=== PATIENT | female | born 1940 | race Caucasian/White ===

== ENCOUNTER 2017-03-02 11:27 | Inpatient (IN) | payer MEDICARE ==
[2017-03-02] MEDS ORDERED: NORMAL SALINE 500 ML IV ONE (12:04)
[2017-03-02] MEDS ORDERED: NORMAL SALINE 1000 ML 1,000 ML IV ONE (12:04)
[2017-03-02 12:18] LABS: HEMATOCRIT 28.7 % (36.0-47.0); HGB HCT DIFFERENCE -1.7; MEAN CORPUSCULAR HEMOGLOBIN 27.3 pg (27.0-33.4); MEAN CORPUSCULAR HGB CONC 31.3 g/dL (32.0-36.0); MEAN CORPUSCULAR VOLUME 87 fl (80-97); RED BLOOD COUNT 3.28 10^6/uL (3.72-5.28); RED CELL DISTRIBUTION WIDTH 15.1 % (11.5-14.0); WHITE BLOOD COUNT 22.2 10^3/uL (4.0-10.5)
[2017-03-02 12:22] LABS: ANION GAP 14 (5-19); BLOOD UREA NITROGEN 41 mg/dL (7-20); CALCIUM 10.1 mg/dL (8.4-10.2); CARBON DIOXIDE 25 mmol/L (22-30); CHLORIDE 95 mmol/L (98-107); GLUCOSE 157 mg/dL (75-110); MAGNESIUM 1.5 mg/dL (1.6-2.3); PHOSPHORUS 3.8 mg/dL (2.5-4.5); POTASSIUM 4.8 mmol/L (3.6-5.0); SODIUM 133.9 mmol/L (137-145)
[2017-03-02 12:23] LABS: CREATINE KINASE < 20 U/L (30-135)
[2017-03-02 12:37] LABS: PROTHROMBIN TIME 15.1 SEC (11.4-15.4)
[2017-03-02 12:38] LABS: PARTIAL THROMBOPLASTIN TIME 39.4 SEC (23.5-35.8)
[2017-03-02 12:50] LABS: BAND NEUTROPHILS % (MANUAL) 1 % (3-5); BASOPHILS % (MANUAL) 2 % (0-2); EOSINOPHILS % (MANUAL) 3 % (0-6); LYMPHOCYTES % (MANUAL) 3 % (13-45); TOTAL CELLS COUNTED 100
[2017-03-02 12:51] LABS: ANISOCYTOSIS 1+; POLYCHROMASIA 1+; TOXIC VACUOLATION PRESENT
[2017-03-02 13:08] LABS: ALANINE AMINOTRANSFERASE 21 U/L (9-52); ALBUMIN 3.1 g/dL (3.5-5.0); ALKALINE PHOSPHATASE 91 U/L (38-126); ASPARTATE AMINO TRANSFERASE 20 U/L (14-36); BILIRUBIN,DIRECT 0.3 mg/dL (0.0-0.4); BILIRUBIN,TOTAL 0.5 mg/dL (0.2-1.3); TOTAL PROTEIN 6.6 g/dL (6.3-8.2)
[2017-03-02] MEDS ORDERED: LEVOFLOXACIN 750 MG/D5W RTU 150 ML IV ONE (13:39)
[2017-03-02] MEDS ORDERED: MAGNESIUM SULFATE/D5W 100 ML IV ONE (13:40)
[2017-03-02 13:49] LABS: APPEARANCE,URINE CLOUDY; BILIRUBIN,URINE NEGATIVE (NEGATIVE); GLUCOSE, URINE NEGATIVE (NEGATIVE); KETONES,URINE NEGATIVE (NEGATIVE); LEUKOCYTE ESTERASE,URINE LARGE (NEGATIVE); NITRITE,URINE NEGATIVE (NEGATIVE); PROTEIN,URINE 100 mg/dL (NEGATIVE); UROBILINOGEN,URINE NEGATIVE mg/dL (<2.0)
--- NOTE | 2017-03-02 16:00 | ER Document Report ---
ED General - General Chief Complaint: General Weakness Stated Complaint: WEAKNESS TRAVEL OUTSIDE OF THE [place] IN LAST 30 DAYS: No - HPI Patient complains to provider of: generalized weakness fall Notes: Page coming in for general has weakness after fall. Patient states she has fallen multiple times in the last week today felt she was in the tub mechanical fall states he slipped falling down injuring her right shoulder. Patient states this is been ongoing for a few weeks. Family states patient has not been taking care of herself states he refuses to drink any water messaging soda. Patient denies any fevers chills states she's had a cough for the last 3 months. Nonproductive. - Related Data Allergies/Adverse Reactions: SHAUN Inhibitors [Shaun Inhibitors] Allergy (Verified 08/26/15 08:54) ascorbate calcium [From Vitamin C] Allergy (Verified 08/26/15 08:54) Swelling of hands and/or feet ascorbate sodium [From Vitamin C] Allergy (Verified 08/26/15 08:54) Swelling of hands and/or feet ascorbic acid [From Vitamin C] Allergy (Verified 08/26/15 08:54) Swelling of hands and/or feet buffers [From Vitamin C] Allergy (Verified 08/26/15 08:54) Swelling of hands and/or feet codeine [Codeine] Allergy (Verified 08/26/15 08:54) Hives multivitamin with minerals [From Vitamin C] Allergy (Verified 08/26/15 08:54) Swelling of hands and/or feet oxycodone [Oxycodone] Allergy (Verified 08/26/15 08:54) Hives Penicillins Allergy (Verified 08/26/15 08:54) Hives Tetanus Vaccines and Toxoid [Tetanus] Allergy (Verified 08/26/15 08:54) itching reddness Home Medications: Current Home Medications Alendronate Sodium [Fosamax 70 mg Tablet] 70 mg PO WE 03/02/17 [History] Amlodipine Besylate [Norvasc 10 mg Tablet] 10 mg PO QHS 03/02/17 [History] Aspirin [Ecotrin 81 mg EC Tablet] 81 mg PO QHS 03/02/17 [History] Atenolol [Tenormin 50 mg Tablet] 50 mg PO BID@0800,1200 03/02/17 [History] Atorvastatin Calcium [Lipitor 10 mg Tablet] 10 mg PO QHS 03/02/17 [History] Calcium Carbonate/Vitamin D3 [Calcium 600-Vit D3 800 Tablet] 2 tab PO DAILY [History] Cholecalciferol (Vitamin D3) [Vitamin D3 5000 unit Capsule] 10,000 units PO DAILY 03/02/17 [History] Fexofenadine HCl [Shwetha] 180 mg PO QHS 03/02/17 [History] Glucosa [place] 2Kcl/Chondroitin Pineda [Glucosamine Chondroitin Caplet] 1 tab PO BID [History] Hydrochlorothiazide 25 mg PO QAM 03/02/17 [History] Levothyroxine Sodium [Synthroid 0.025 mg Tablet] 25 mcg PO ACLUNCH 03/02/17 [ History] Metformin HCl [Glucophage] 500 mg PO ACLUNCH 03/02/17 [History] Metformin HCl [Glucophage] 850 mg PO BIDACBS 03/02/17 [History] Montelukast Sodium [Singulair 10 mg Tablet] 10 mg PO QHS 03/02/17 [History] Pregabalin [Lyrica 50 mg Capsule] 50 mg PO Q8 03/02/17 [History] Tramadol HCl [Ultram 50 mg Tablet] 100 mg PO Q8 03/02/17 [History] Past Medical History - Social History Smoking Status: Unknown if Ever Smoked Chew tobacco use (# tins/day): No Frequency of alcohol use: None Drug Abuse: None Family History: Reviewed & Not Pertinent - Past Medical History Cardiac Medical History: Reports: Hx Hypertension Denies: Hx Heart Attack Pulmonary Medical History: Reports: Hx Asthma - controlled Neurological Medical History: Denies: Hx Cerebrovascular Accident, Hx Seizures Endocrine Medical History: Reports: Hx Diabetes Mellitus Type 2 GI Medical History: Denies: Hx Hepatitis, Hx Hiatal Hernia, Hx Ulcer Infectious Medical History: Denies: Hx Hepatitis Past Surgical History: Denies: Hx Mastectomy, Hx Open Heart Surgery, Hx Pacemaker - Immunizations Hx Diphtheria, Pertussis, Tetanus Vaccination: No Review of Systems - Review of Systems Constitutional: Weakness, Other - Fall EENT: No symptoms reported Cardiovascular: No symptoms reported Respiratory: No symptoms reported Gastrointestinal: No symptoms reported Genitourinary: No symptoms reported Female Genitourinary: No symptoms reported Musculoskeletal: No symptoms reported Skin: No symptoms reported Hematologic/Lymphatic: No symptoms reported Neurological/Psychological: No symptoms reported Physical Exam - Vital signs Vitals: Resp Pulse Ox 15 95 03/02/17 11:39 03/02/17 11:39 Interpretation: Normal - General General appearance: Appears well, Alert - HEENT Head: Normocephalic, Atraumatic Eyes: Normal Pupils: PERRL - Respiratory Respiratory status: No respiratory distress Chest status: Nontender Breath sounds: Normal Chest palpation: Normal - Cardiovascular Rhythm: Regular Heart sounds: Normal auscultation Murmur: No - Abdominal Inspection: Normal Distension: No distension Bowel sounds: Normal Tenderness: Nontender Organomegaly: No organomegaly - Back Back: Normal, Nontender - Extremities General upper extremity: Nontender, Normal color, Normal ROM, Normal temperature. No: Normal inspection - Patient has tenderness to palpation of the right shoulder. No other tenderness seen. No deformities General lower extremity: Normal inspection, Nontender, Normal color, Normal ROM , Normal temperature, Normal weight bearing. No: Tim's sign - Neurological Neuro grossly intact: Yes Cognition: Normal Orientation: AAOx4 Thai Coma Scale Eye Opening: Spontaneous [place] Coma Scale Verbal: Oriented Thai Coma Scale Motor: Obeys Commands Thai Coma Scale Total: 15 Speech: Normal Motor strength normal: LUE, RUE, LLE, RLE Sensory: Normal - Psychological Associated symptoms: Normal affect, Normal mood - Skin Skin Temperature: Warm Skin Moisture: Dry Skin Color: Normal Course - Re-evaluation Re-evalutation: 03/02/17 18:36 Patient's lab work shows leukocytosis with a bandemia patient's condition profundus showed acute renal failure and hypomagnesemia. Urinalysis that showed UTI. Chest x-ray shows a chest mass with possible pneumonia. Patient was started on antibiotics was given IV fluids patient's orthostatics were positive. Cardiac enzymes and EKG were negative. Patient will be referred to the hospital for further evaluation. - Vital Signs Vital signs: Temp Pulse Resp BP Pulse Ox 97.8 F 74 15 111/56 L 95 03/02/17 15:00 03/02/17 15:00 03/02/17 18:00 03/02/17 15:01 03/02/17 18:00 - Laboratory Result Diagrams: 03/02/17 11:50 03/02/17 11:50 Laboratory results interpreted by me: 04/19/17 04/19/17 04/19/17 11:50 11:50 11:50 WBC 22.2 H RBC 3.28 L Hgb 9.0 L Hct 28.7 L MCHC 31.3 L RDW 15.1 H Plt Count 664 H Seg Neuts % (Manual) 83 H Band Neutrophils % 1 L Lymphocytes % (Manual) 3 L Metamyelocytes % 1 H Abs Neuts (Manual) 18.9 H Abs Monocytes (Manual) 1.6 H Absolute Eos (Manual) 0.7 H Abs Basophils (Manual) 0.4 H APTT 39.4 H Sodium 133.9 L Chloride 95 L BUN 41 H Creatinine 1.90 H Est GFR ( Amer) 31 L Est GFR (Non-Af Amer) 26 L Glucose 157 H Magnesium 1.5 L Creatine Kinase < 20 L Albumin Urine Protein Urine Blood Ur Leukocyte Esterase 03/02/17 03/02/17 11:50 13:09 WBC RBC Hgb Hct MCHC RDW Plt Count Seg Neuts % (Manual) Band Neutrophils % Lymphocytes % (Manual) Metamyelocytes % Abs Neuts (Manual) Abs Monocytes (Manual) Absolute Eos (Manual) Abs Basophils (Manual) APTT Sodium Chloride BUN Creatinine Est GFR ( Amer) Est GFR (Non-Af Amer) Glucose Magnesium Creatine Kinase Albumin 3.1 L Urine Protein 100 H Urine Blood LARGE H Ur Leukocyte Esterase LARGE H Discharge - Discharge Clinical Impression: Generalized weakness, Orthostatic hypotension, Lung mass, Hypomagnesemia Pneumonia Qualifiers: Pneumonia type: due to unspecified organism Laterality: unspecified laterality Lung location: unspecified part of lung Qualified Code(s): J18.9 - Pneumonia, unspecified organism Acute renal failure Qualifiers: Acute renal failure type: unspecified Qualified Code(s): N17.9 - Acute kidney failure, unspecified Condition: Good Disposition: ADMITTED INPATIENT Admitting Provider: Hospitalist - [facility] Admitted: Telemetry Referrals: XIMENA ALONZO MD [Primary Care Provider] - Follow up as needed
[2017-03-02] MEDS ORDERED: NORMAL SALINE 1000 ML 1,000 ML IV PRN (17:46)
[2017-03-02] MEDS ORDERED: ONDANSETRON HCL INJ/PF 4 MG/2 ML SDV IV PRN (17:53)
[2017-03-02] MEDS ORDERED: TRAMADOL HCL 50 MG TABLET PO PRN (17:54)
[2017-03-02] MEDS ORDERED: DEXTROSE 40% GEL 15 GM TUBE PO PRN ×2 (17:57)
[2017-03-02] MEDS ORDERED: DEXTROSE 50%-WATER 25 GM/50 ML DISP.SYRIN IV PRN ×2 (17:57)
[2017-03-02] MEDS ORDERED: GLUCAGON,HUMAN RECOMB 1 MG INJ IM PRN (17:57)
[2017-03-02] MEDS ORDERED: INSULIN REG, HUMAN 100 UNIT/ML 3 ML VIAL (PYX) SUBCUT PRN (17:57)
--- NOTE | 2017-03-02 18:11 | PDOC H&P ---
History of Present Illness Admission Date/PCP: XIMENA ALONZO MD Patient complains of: Generalized weakness and fall History of Present Illness: MARILY DENNIS is a 76 year old female, with history of hypothyroidism, recently diagnosed rheumatoid arthritis, type II diabetes mellitus, hypertension , presents to the hospital because of fall that happened earlier today while preparing to go to the doctor's clinic in the bathroom. Patient did not sustain any injury, family was able to get her up and brought her back to bed where she fell again. She was brought to the hospital for evaluation, she was found to have elevated WBC, anemia, elevated creatinine, and multiple lung masses. Patient was then referred for admission. Patient has lost about 60 pounds for the past 3 years. For the past 3 months appetite has been decreasing , and the patient having generalized weakness that became progressive. For the past 2 weeks she started to develop urinary frequency and urgency. Denies any chills or fever at all. No diarrhea. She has a chronic cough for the past 3 months, dry without any hemoptysis. There is no pleurisy. No sinus congestion but has sore throat for about a week. She was recently diagnosed several weeks ago by her physician w/ rheumatoid arthritis. Past Medical History Cardiac Medical History: Reports: Hyperlipidema, Hypertension Denies: Myocardial Infarction Pulmonary Medical History: Reports: Asthma - controlled Neurological Medical History: Denies: Seizures Endocrine Medical History: Reports: Diabetes Mellitus Type 2, Hypothyroidism Malignancy Medical History: Reports: Other - Anemia of chronic disease GI Medical History: Denies: Hepatitis, Hiatal Hernia Musculoskeltal Medical History: Reports: Fibromyalgia, Other - Rheumatoid arthritis Hematology: Reports: Anemia Denies: Sickle Cell Disease Past Surgical History Past Surgical History: Reports: Orthopedic Surgery - Right shoulder surgery for fracture, Other - Cataract surgery Denies: Amputation, Mastectomy, Pacemaker Social History Information Source: Patient Smoking Status: Never Smoker Frequency of Alcohol Use: None Hx Recreational Drug Use: No Drugs: None Family History Family History: Reviewed & Not Pertinent, CAD, DM, Malignancy - Brain cancer, uterine cancer, Other - Brain aneurysm, liver cirrhosis Parental Family History Reviewed: Yes Children Family History Reviewed: Yes Sibling(s) Family History Reviewed.: Yes Medication/Allergy Home Medications: Alendronate Sodium [Fosamax 70 mg Tablet] 70 mg PO WE 03/02/17 Amlodipine Besylate [Norvasc 10 mg Tablet] 10 mg PO QHS 03/02/17 Aspirin [Ecotrin 81 mg EC Tablet] 81 mg PO QHS 03/02/17 Atenolol [Tenormin 50 mg Tablet] 50 mg PO BID@0800,1200 03/02/17 Atorvastatin Calcium [Lipitor 10 mg Tablet] 10 mg PO QHS 03/02/17 Calcium Carbonate/Vitamin D3 [Calcium 600-Vit D3 800 Tablet] 2 tab PO DAILY Cholecalciferol (Vitamin D3) [Vitamin D3 5000 unit Capsule] 10,000 units PO DAILY 03/02/17 Fexofenadine HCl [Shwetha] 180 mg PO QHS 03/02/17 Glucosa Pineda 2Kcl/Chondroitin Pineda [Glucosamine Chondroitin Caplet] 1 tab PO BID Hydrochlorothiazide 25 mg PO QAM 03/02/17 Levothyroxine Sodium [Synthroid 0.025 mg Tablet] 25 mcg PO ACLUNCH 03/02/17 Metformin HCl [Glucophage] 500 mg PO ACLUNCH 03/02/17 Metformin HCl [Glucophage] 850 mg PO BIDACBS 03/02/17 Montelukast Sodium [Singulair 10 mg Tablet] 10 mg PO QHS 03/02/17 Pregabalin [Lyrica 50 mg Capsule] 50 mg PO Q8 03/02/17 Tramadol HCl [Ultram 50 mg Tablet] 100 mg PO Q8 03/02/17 Allergies/Adverse Reactions: SHAUN Inhibitors [Shaun Inhibitors] Allergy (Verified 08/26/15 08:54) ascorbate calcium [From Vitamin C] Allergy (Verified 08/26/15 08:54) Swelling of hands and/or feet ascorbate sodium [From Vitamin C] Allergy (Verified 08/26/15 08:54) Swelling of hands and/or feet ascorbic acid [From Vitamin C] Allergy (Verified 08/26/15 08:54) Swelling of hands and/or feet buffers [From Vitamin C] Allergy (Verified 08/26/15 08:54) Swelling of hands and/or feet codeine [Codeine] Allergy (Verified 08/26/15 08:54) Hives multivitamin with minerals [From Vitamin C] Allergy (Verified 08/26/15 08:54) Swelling of hands and/or feet oxycodone [Oxycodone] Allergy (Verified 08/26/15 08:54) Hives Penicillins Allergy (Verified 08/26/15 08:54) Hives Tetanus Vaccines and Toxoid [Tetanus] Allergy (Verified 08/26/15 08:54) itching reddness Review of Systems Constitutional: PRESENT: headache(s) - Occasional, weakness - Generalized, weight loss. ABSENT: chills, fever(s), night sweats, weight gain Eyes: ABSENT: visual disturbances Ears: ABSENT: hearing changes Nose, Mouth, and Throat: PRESENT: sore throat - For about a week. ABSENT: mouth pain Cardiovascular: PRESENT: dyspnea on exertion. ABSENT: chest pain, edema, orthropnea, palpitations Respiratory: PRESENT: cough. ABSENT: hemoptysis, sputum Gastrointestinal: ABSENT: abdominal pain, constipation, diarrhea, hematemesis, hematochezia, melena, nausea, vomiting Genitourinary: PRESENT: difficulty urinating, dysuria. ABSENT: hematuria, nocturia Musculoskeletal: ABSENT: joint swelling Integumentary: PRESENT: rash - On the buttocks on the right side.. ABSENT: pruritus, wounds Neurological: PRESENT: dizziness - on standing. ABSENT: abnormal gait, abnormal speech, confusion, focal weakness, syncope Psychiatric: ABSENT: anxiety, depression, homidical ideation, suicidal ideation Endocrine: ABSENT: cold intolerance, heat intolerance, polydipsia, polyuria Hematologic/Lymphatic: ABSENT: easy bleeding, easy bruising Physical Exam Vital Signs: Temp Pulse Resp BP Pulse Ox 97.8 F 74 18 111/56 L 94 03/02/17 15:00 03/02/17 15:00 03/02/17 17:00 03/02/17 15:01 03/02/17 17:00 General appearance: PRESENT: no acute distress, cooperative, obese Head exam: PRESENT: atraumatic, normocephalic Eye exam: PRESENT: conjunctiva pale, EOMI, PERRLA. ABSENT: scleral icterus Ear exam: PRESENT: normal external ear exam. ABSENT: drainage Mouth exam: PRESENT: dry mucosa, neck supple, tongue midline Throat exam: PRESENT: other - No thrush. ABSENT: post pharyngeal erythema, tonsillar erythema Neck exam: ABSENT: carotid bruit, JVD, lymphadenopathy, thyromegaly Respiratory exam: PRESENT: clear to auscultation ponce - Anteriorly, rales - Dry rales posteriorly in the lower lung zuñiga. ABSENT: rhonchi, wheezes Cardiovascular exam: PRESENT: RRR, systolic murmur - On the aortic area. ABSENT : diastolic murmur, rubs Pulses: PRESENT: normal dorsalis pedis pul Vascular exam: PRESENT: normal capillary refill GI/Abdominal exam: PRESENT: normal bowel sounds, soft, other - Patient had a dry nodule on the right buttocks that is healing with some scaling desquamation and scabbing about 0.5 cm. ABSENT: distended, guarding, mass, organolmegaly, rebound, tenderness Rectal exam: PRESENT: deferred Extremities exam: PRESENT: full ROM. ABSENT: calf tenderness, clubbing, pedal edema Neurological exam: PRESENT: alert, awake, oriented to person, oriented to place , oriented to time, oriented to situation, CN II-XII grossly intact Psychiatric exam: PRESENT: appropriate affect, normal mood. ABSENT: homicidal ideation, suicidal ideation Skin exam: PRESENT: dry, intact, warm. ABSENT: cyanosis, rash Results Laboratory Results: 03/02/17 11:50 03/02/17 11:50 03/02/17 03/02/17 03/02/17 11:50 11:50 11:50 WBC 22.2 H RBC 3.28 L Hgb 9.0 L Hct 28.7 L MCV 87 MCH 27.3 MCHC 31.3 L RDW 15.1 H Plt Count 664 H Seg Neutrophils % Not Reportable Lymphocytes % Not Reportable Monocytes % Not Reportable Eosinophils % Not Reportable Basophils % Not Reportable Absolute Neutrophils Not Reportable Absolute Lymphocytes Not Reportable Absolute Monocytes Not Reportable Absolute Eosinophils Not Reportable Absolute Basophils Not Reportable Sodium 133.9 L Potassium 4.8 Chloride 95 L Carbon Dioxide 25 Anion Gap 14 BUN 41 H Creatinine 1.90 H Est GFR ( Amer) 31 L Est GFR (Non-Af Amer) 26 L Glucose 157 H Calcium 10.1 Phosphorus 3.8 Magnesium 1.5 L Total Bilirubin AST ALT Alkaline Phosphatase Total Protein Albumin Lipase Urine Color Urine Appearance Urine pH Ur Specific [place] Urine Protein Urine Glucose (UA) Urine Ketones Urine Blood Urine Nitrite Ur Leukocyte Esterase Urine WBC (Auto) Urine RBC (Auto) Blood Type O POSITIVE Antibody Screen NEGATIVE 03/02/17 03/02/17 11:50 13:09 WBC RBC Hgb Hct MCV MCH MCHC RDW Plt Count Seg Neutrophils % Lymphocytes % Monocytes % Eosinophils % Basophils % Absolute Neutrophils Absolute Lymphocytes Absolute Monocytes Absolute Eosinophils Absolute Basophils Sodium Potassium Chloride Carbon Dioxide Anion Gap BUN Creatinine Est GFR ( Amer) Est GFR (Non-Af Amer) Glucose Calcium Phosphorus Magnesium Total Bilirubin 0.5 AST 20 ALT 21 Alkaline Phosphatase 91 Total Protein 6.6 Albumin 3.1 L Lipase 26.0 Urine Color YELLOW Urine Appearance CLOUDY Urine pH 5.0 Ur Specific [place] 1.010 Urine Protein 100 H Urine Glucose (UA) NEGATIVE Urine Ketones NEGATIVE Urine Blood LARGE H Urine Nitrite NEGATIVE Ur Leukocyte Esterase LARGE H Urine WBC (Auto) 79 Urine RBC (Auto) 157 Blood Type Antibody Screen 03/02/17 03/02/17 11:50 11:50 Creatine Kinase < 20 L Troponin I < 0.012 Impressions: Chest X-Ray 03/02/17 12:06 IMPRESSION: Abnormal density is seen bilaterally worrisome for malignancy although pneumonia is also consideration. Chest CT is recommended for further evaluation. Shoulder X-Ray 03/02/17 12:06 IMPRESSION: 1. Old posttraumatic changes involving the proximal right humerus with severe degenerative changes involving the AC joint and the glenohumeral joint. 2. Abnormal density involving the right hilum extending into the right lung base worrisome for malignancy. Chest CT is recommended. Chest CT 03/02/17 15:46 IMPRESSION: Multiple large mass lesions are seen through the lung zuñiga, hilar and mediastinal regions. Findings concerning for malignancy. Scattered sclerotic changes are seen of multiple ribs. Assessment & Plan - Time Time Spent: 50 to 70 Minutes - Plan Summary Plan Summary: The patient will be admitted to telemetry. We will hydrate the patient with normal saline. We will culture the urine and blood, we will begin intravenous antibiotic to cover for gram negatives sepsis. Patient has multiple lung nodules, may be related to rheumatoid arthritis, we will however consult pulmonary for possible bronchoscopy, consult Dr. Ayala for possible malignancy. We will check a TSH and a free T4. We will monitor creatinine as well as hematocrit. DVT prophylaxis with Lovenox will be placed. Further testing depends on initial evaluation as outlined above.
[2017-03-02 19:30] LABS: FREE T3 2.19 pg/mL (2.77-5.27)
[2017-03-02 19:44] LABS: THYROID STIMULATING HORMONE 1.91 uIU/mL (0.47-4.68)
--- NOTE | 2017-03-02 20:04 | EKG REPORT ---
SEVERITY:- NORMAL ECG - SINUS RHYTHM : Confirmed by: Alexia Delarosa MD 02-Mar-2017 20:04:03
[2017-03-02] MEDS: DOCUSATE SODIUM 100 MG CAPSULE PO SCH (20:22)
[2017-03-02] MEDS ORDERED: ENOXAPARIN SODIUM INJ 30 MG/0.3 ML DISP.SYRIN SUBCUT ONE (20:45)
[2017-03-02] MEDS: ASPIRIN 81 MG TABLET, ENT COATED PO SCH (21:50)
[2017-03-02] MEDS: ACETAMINOPHEN 325 MG TABLET PO PRN (21:50)
[2017-03-02] MEDS: LORATADINE 10 MG TABLET PO SCH (21:50)
[2017-03-02] MEDS: PREGABALIN 50 MG CAPSULE PO SCH (21:50)
[2017-03-02] MEDS: MONTELUKAST SODIUM 10 MG TABLET PO SCH (21:50)
[2017-03-03] MEDS: PREGABALIN 50 MG CAPSULE PO SCH ×3 (05:00→21:21)
[2017-03-03] MEDS: LANSOPRAZOLE 30 MG TAB.RAP.DR PO SCH (05:00)
[2017-03-03 06:28] LABS: ANION GAP 11 (5-19); BLOOD UREA NITROGEN 36 mg/dL (7-20); CALCIUM 9.9 mg/dL (8.4-10.2); CARBON DIOXIDE 26 mmol/L (22-30); CHLORIDE 99 mmol/L (98-107); CREATININE RESULT 1.72 mg/dL (0.52-1.25); GLUCOSE 125 mg/dL (75-110); MAGNESIUM 1.7 mg/dL (1.6-2.3); PHOSPHORUS 4.1 mg/dL (2.5-4.5); SODIUM 135.9 mmol/L (137-145)
[2017-03-03 06:50] LABS: HEMATOCRIT 27.5 % (36.0-47.0); HEMOGLOBIN 8.7 g/dL (12.0-15.5); HGB HCT DIFFERENCE -1.4; MEAN CORPUSCULAR HEMOGLOBIN 27.8 pg (27.0-33.4); MEAN CORPUSCULAR HGB CONC 31.6 g/dL (32.0-36.0); MEAN CORPUSCULAR VOLUME 88 fl (80-97); RED BLOOD COUNT 3.13 10^6/uL (3.72-5.28); RED CELL DISTRIBUTION WIDTH 15.4 % (11.5-14.0); WHITE BLOOD COUNT 19.7 10^3/uL (4.0-10.5)
[2017-03-03 07:06] LABS: BAND NEUTROPHILS % (MANUAL) 1 % (3-5); BASOPHILS % (MANUAL) 0 % (0-2); EOSINOPHILS % (MANUAL) 1 % (0-6); LYMPHOCYTES % (MANUAL) 4 % (13-45); TOTAL CELLS COUNTED 100
[2017-03-03 07:07] LABS: ANISOCYTOSIS 1+; HYPOCHROMASIA SLIGHT; OVALOCYTES SLIGHT; POIKILOCYTOSIS SLIGHT; POLYCHROMASIA SLIGHT
[2017-03-03] MEDS ORDERED: ENOXAPARIN SODIUM INJ 40 MG/0.4 ML DISP.SYRIN SUBCUT SCH (08:00)
[2017-03-03] MEDS ORDERED: ERTAPENEM SODIUM 1 GM in NORMAL SALINE 50 ML IV SCH (10:00)
[2017-03-03] MEDS ORDERED: ERTAPENEM SODIUM INJ 1 GM VIAL IV SCH (10:00)
[2017-03-03] MEDS ORDERED: ERTAPENEM SODIUM 0.5 GM in NORMAL SALINE 50 ML IV SCH (10:00)
--- NOTE | 2017-03-03 10:45 | PDOC PROGRESS REPORT ---
Subjective Progress Note for:: 03/03/17 Subjective:: Still with generalized malaise and fatigue. Denies shortness of breath, PND or orthopnea, chest pain or pleurisy. No nausea or vomiting, no abdominal pain, no diarrhea. Appetite still poor. Physical Exam Vital Signs: Temp Pulse Resp BP Pulse Ox 98.5 F 82 18 120/53 L 100 03/03/17 07:44 03/03/17 07:44 03/03/17 07:44 03/03/17 07:44 03/03/17 07:44 Intake & Output 03/02/17 03/03/17 03/04/17 06:59 06:59 06:59 Intake Total 1175 Output Total 300 Balance 875 Weight 70.7 kg General appearance: PRESENT: no acute distress, cooperative Head exam: PRESENT: normocephalic Eye exam: PRESENT: conjunctiva pale, EOMI Mouth exam: PRESENT: moist, neck supple Neck exam: ABSENT: JVD Respiratory exam: PRESENT: clear to auscultation ponce. ABSENT: rhonchi, wheezes Cardiovascular exam: PRESENT: RRR. ABSENT: gallop GI/Abdominal exam: PRESENT: normal bowel sounds, soft. ABSENT: distended, tenderness Extremities exam: PRESENT: other - Trace lower extremity edema Neurological exam: PRESENT: alert, awake, oriented to situation Skin exam: PRESENT: dry, warm. ABSENT: cyanosis Results Laboratory Results: 03/03/17 04:41 03/03/17 04:41 03/03/17 03/03/17 04:41 04:41 WBC 19.7 H RBC 3.13 L Hgb 8.7 L Hct 27.5 L MCV 88 MCH 27.8 MCHC 31.6 L RDW 15.4 H Plt Count 574 H Seg Neutrophils % Not Reportable Lymphocytes % Not Reportable Monocytes % Not Reportable Eosinophils % Not Reportable Basophils % Not Reportable Absolute Neutrophils Not Reportable Absolute Lymphocytes Not Reportable Absolute Monocytes Not Reportable Absolute Eosinophils Not Reportable Absolute Basophils Not Reportable Sodium 135.9 L Potassium 5.0 Chloride 99 Carbon Dioxide 26 Anion Gap 11 BUN 36 H Creatinine 1.72 H Est GFR ( Amer) 35 L Est GFR (Non-Af Amer) 29 L Glucose 125 H Calcium 9.9 Phosphorus 4.1 Magnesium 1.7 Impressions: Chest X-Ray 04/19/17 12:06 IMPRESSION: Abnormal density is seen bilaterally worrisome for malignancy although pneumonia is also consideration. Chest CT is recommended for further evaluation. Shoulder X-Ray 03/02/17 12:06 IMPRESSION: 1. Old posttraumatic changes involving the proximal right humerus with severe degenerative changes involving the AC joint and the glenohumeral joint. 2. Abnormal density involving the right hilum extending into the right lung base worrisome for malignancy. Chest CT is recommended. Chest CT 03/02/17 15:46 IMPRESSION: Multiple large mass lesions are seen through the lung zuñiga, hilar and mediastinal regions. Findings concerning for malignancy. Scattered sclerotic changes are seen of multiple ribs. Assessment & Plan - Diagnosis (1) Sepsis Qualifiers: Sepsis type: sepsis due to unspecified organism Qualified Code(s): A41.9 - Sepsis, unspecified organism Is this a current diagnosis for this admission?: Yes (2) UTI (urinary tract infection) Qualifiers: Urinary tract infection type: acute cystitis Hematuria presence: without hematuria Qualified Code(s): N30.00 - Acute cystitis without hematuria Is this a current diagnosis for this admission?: Yes (3) Acute renal failure Qualifiers: Acute renal failure type: unspecified Qualified Code(s): N17.9 - Acute kidney failure, unspecified Is this a current diagnosis for this admission?: Yes (4) Hypomagnesemia Is this a current diagnosis for this admission?: Yes (5) Lung mass Is this a current diagnosis for this admission?: Yes (6) Anemia Qualifiers: Anemia type: unspecified type Qualified Code(s): D64.9 - Anemia, unspecified Is this a current diagnosis for this admission?: Yes (7) Hypertension, essential Is this a current diagnosis for this admission?: Yes (8) Hyperlipidemia Qualifiers: Hyperlipidemia type: unspecified Qualified Code(s): E78.5 - Hyperlipidemia, unspecified Is this a current diagnosis for this admission?: Yes (9) Asthma Qualifiers: Asthma complication type: uncomplicated Is this a current diagnosis for this admission?: Yes (10) Diabetes mellitus type 2 in obese Is this a current diagnosis for this admission?: Yes (11) Hypothyroidism (acquired) Is this a current diagnosis for this admission?: Yes (12) Rheumatoid arthritis Qualifiers: Rheumatoid arthritis location: unspecified site Rheumatoid factor presence: unspecified presence Qualified Code(s): M06.9 - Rheumatoid arthritis, unspecified Is this a current diagnosis for this admission?: Yes (13) Fibromyalgia Is this a current diagnosis for this admission?: Yes - Time Time Spent with patient: 25-34 minutes - Plan Summary Plan Summary: Case discussed with pulmonary service. Possible bronchoscopy on Tuesday. Await oncology evaluation. Continue gentle hydration. Monitor creatinine. WBC/HCT trended down probably dilutional. We will monitor and transfuse if needed. Continue antibiotics. Follow cultures. Check free T4.
[2017-03-03] MEDS: DOCUSATE SODIUM 100 MG CAPSULE PO SCH ×2 (11:41→18:29)
[2017-03-03] MEDS: LEVOTHYROXINE SODIUM 0.025 MG TABLET PO SCH (11:41)
[2017-03-03] MEDS: ENOXAPARIN SODIUM INJ 30 MG/0.3 ML DISP.SYRIN SUBCUT SCH (11:42)
[2017-03-03] MEDS: ATENOLOL 50 MG TABLET PO SCH ×2 (11:42→18:28)
[2017-03-03] MEDS: ACETAMINOPHEN 325 MG TABLET PO PRN ×2 (11:46→18:29)
[2017-03-03] MEDS ORDERED: ACETAMINOPHEN 325 MG TABLET PO PRN (19:22)
[2017-03-03] MEDS ORDERED: DIPHENHYDRAMINE HCL 50 MG/ML VIAL IV PRN (19:23)
[2017-03-03] MEDS ORDERED: FERUMOXYTOL (ESRD) 510 MG/NS 100 ML IV ONE ×2 (20:30)
[2017-03-03] MEDS ORDERED: FERUMOXYTOL (NON-ESRD) 510 MG/NS 100 ML IV ONE ×2 (20:30)
[2017-03-03] MEDS: ASPIRIN 81 MG TABLET, ENT COATED PO SCH (21:21)
[2017-03-03] MEDS: LORATADINE 10 MG TABLET PO SCH (21:21)
[2017-03-03] MEDS: ATORVASTATIN CALCIUM 10 MG TABLET PO SCH (21:21)
[2017-03-03] MEDS: MONTELUKAST SODIUM 10 MG TABLET PO SCH (21:21)
--- NOTE | 2017-03-03 23:27 | PDOC CONSULTATION ---
Consultation Consult Date: 03/03/17 Consult reason:: Anemia and lung lesions History of Present Illness Admission Date/PCP: 03/02/17 19:09 XIMENA ALONZO MD History of Present Illness: MARILY DENNIS is a 76 year old female, with history of hypothyroidism, recently diagnosed rheumatoid arthritis, type II diabetes mellitus, hypertension , SINCERE who presented to the hospital because of a fall that happened just prior to admit while preparing to go to the doctor's office. Patient did not sustain any injury, and family was able to get her up but she fell again. She was brought to the hospital for evaluation, and was found to have an elevated WBC, anemia, elevated creatinine, and multiple lung masses. Patient was then referred for admission. She has lost about 60 pounds for the past 3 years. For the past 3 months appetite has been decreasing, and the patient having generalized weakness that has became progressive. She has had an iron deficiency with negative stools and despite recent IV iron she had a rapid decline again. For the past 2 weeks she started to develop urinary frequency but denies any chills or fever at all. No diarrhea or change in bowel habits. She has a chronic cough for the past 3 months, dry without any hemoptysis. There is no pleurisy. No sinus congestion but has sore throat for about a week. She was recently diagnosed a few weeks ago with episcleritis w/ rheumatoid arthritis antibody. She then presented to the ER with pulmonary nodules after an XRay looking for fractures. Past Medical History Cardiac Medical History: Reports: Hyperlipidema, Hypertension Denies: Myocardial Infarction Pulmonary Medical History: Reports: Asthma - controlled Neurological Medical History: Denies: Seizures Endocrine Medical History: Reports: Diabetes Mellitus Type 2, Hypothyroidism Malignancy Medical History: Reports: Other - Anemia of chronic disease GI Medical History: Denies: Hepatitis, Hiatal Hernia Musculoskeltal Medical History: Reports: Fibromyalgia, Other - Rheumatoid arthritis Psychiatric Medical History: Denies: Depression Hematology: Reports: Anemia Denies: Sickle Cell Disease Past Surgical History Past Surgical History: Reports: Orthopedic Surgery - Right shoulder surgery for fracture, Other - Cataract surgery Denies: Amputation, Mastectomy, Pacemaker Social History Smoking Status: Never Smoker Frequency of Alcohol Use: None Hx Recreational Drug Use: No Drugs: None Hx Prescription Drug Abuse: No Family History Family History: Reviewed & Not Pertinent Parental Family History Reviewed: Yes Children Family History Reviewed: Yes Sibling(s) Family History Reviewed.: Yes Medication/Allergy Home Medications: Alendronate Sodium [Fosamax 70 mg Tablet] 70 mg PO WE 03/02/17 Amlodipine Besylate [Norvasc 10 mg Tablet] 10 mg PO QHS 03/02/17 Aspirin [Ecotrin 81 mg EC Tablet] 81 mg PO QHS 03/02/17 Atenolol [Tenormin 50 mg Tablet] 50 mg PO BID@0800,1200 03/02/17 Atorvastatin Calcium [Lipitor 10 mg Tablet] 10 mg PO QHS 03/02/17 Calcium Carbonate/Vitamin D3 [Calcium 600-Vit D3 800 Tablet] 2 tab PO DAILY Cholecalciferol (Vitamin D3) [Vitamin D3 5000 unit Capsule] 10,000 units PO DAILY 03/02/17 Fexofenadine HCl [Shwetha] 180 mg PO QHS 03/02/17 Glucosa Pineda 2Kcl/Chondroitin Pineda [Glucosamine Chondroitin Caplet] 1 tab PO BID Hydrochlorothiazide 25 mg PO QAM 03/02/17 Levothyroxine Sodium [Synthroid 0.025 mg Tablet] 25 mcg PO ACLUNCH 03/02/17 Metformin HCl [Glucophage] 500 mg PO ACLUNCH 03/02/17 Metformin HCl [Glucophage] 850 mg PO BIDACBS 03/02/17 Montelukast Sodium [Singulair 10 mg Tablet] 10 mg PO QHS 03/02/17 Pregabalin [Lyrica 50 mg Capsule] 50 mg PO Q8 03/02/17 Tramadol HCl [Ultram 50 mg Tablet] 100 mg PO Q8 03/02/17 Allergies/Adverse Reactions: SHAUN Inhibitors [Shaun Inhibitors] Allergy (Verified 08/26/15 08:54) ascorbate calcium [From Vitamin C] Allergy (Verified 08/26/15 08:54) Swelling of hands and/or feet ascorbate sodium [From Vitamin C] Allergy (Verified 08/26/15 08:54) Swelling of hands and/or feet ascorbic acid [From Vitamin C] Allergy (Verified 08/26/15 08:54) Swelling of hands and/or feet buffers [From Vitamin C] Allergy (Verified 08/26/15 08:54) Swelling of hands and/or feet codeine [Codeine] Allergy (Verified 08/26/15 08:54) Hives multivitamin with minerals [From Vitamin C] Allergy (Verified 08/26/15 08:54) Swelling of hands and/or feet oxycodone [Oxycodone] Allergy (Verified 08/26/15 08:54) Hives Penicillins Allergy (Verified 08/26/15 08:54) Hives Tetanus Vaccines and Toxoid [Tetanus] Allergy (Verified 08/26/15 08:54) itching reddness Review of Systems Constitutional: PRESENT: weakness, weight loss Eyes: PRESENT: as per HPI Gastrointestinal: PRESENT: as per HPI Genitourinary: PRESENT: as per HPI Endocrine: PRESENT: as per HPI Hematologic/Lymphatic: PRESENT: as per HPI Physical Exam Vital Signs: Temp Pulse Resp BP Pulse Ox 98.5 F 75 18 116/65 98 03/03/17 19:47 03/03/17 19:47 03/03/17 19:47 03/03/17 19:47 03/03/17 19:47 Intake & Output 03/02/17 03/03/17 03/04/17 06:59 06:59 06:59 Intake Total 1175 2050 Output Total 300 800 Balance 875 1250 Weight 70.7 kg General appearance: PRESENT: no acute distress, cooperative Head exam: PRESENT: atraumatic, normocephalic Eye exam: PRESENT: conjunctiva pale, EOMI, PERRLA Ear exam: PRESENT: normal external ear exam Mouth exam: PRESENT: moist Throat exam: PRESENT: tonsillar exudate Respiratory exam: PRESENT: clear to auscultation ponce, unlabored Cardiovascular exam: PRESENT: RRR GI/Abdominal exam: PRESENT: soft Musculoskeletal exam: PRESENT: full ROM Neurological exam: PRESENT: awake, oriented to person, oriented to place, oriented to time, oriented to situation, CN II-XII grossly intact Results Laboratory Results: 03/03/17 04:41 03/03/17 04:41 03/03/17 03/03/17 03/03/17 04:41 04:41 04:41 WBC 19.7 H RBC 3.13 L Hgb 8.7 L Hct 27.5 L MCV 88 MCH 27.8 MCHC 31.6 L RDW 15.4 H Plt Count 574 H Seg Neutrophils % Not Reportable Lymphocytes % Not Reportable Monocytes % Not Reportable Eosinophils % Not Reportable Basophils % Not Reportable Absolute Neutrophils Not Reportable Absolute Lymphocytes Not Reportable Absolute Monocytes Not Reportable Absolute Eosinophils Not Reportable Absolute Basophils Not Reportable Sodium 135.9 L Potassium 5.0 Chloride 99 Carbon Dioxide 26 Anion Gap 11 BUN 36 H Creatinine 1.72 H Est GFR ( Amer) 35 L Est GFR (Non-Af Amer) 29 L Glucose 125 H Calcium 9.9 Phosphorus 4.1 Magnesium 1.7 Free T4 1.30 Impressions: Chest X-Ray 03/02/17 12:06 IMPRESSION: Abnormal density is seen bilaterally worrisome for malignancy although pneumonia is also consideration. Chest CT is recommended for further evaluation. Shoulder X-Ray 03/02/17 12:06 IMPRESSION: 1. Old posttraumatic changes involving the proximal right humerus with severe degenerative changes involving the AC joint and the glenohumeral joint. 2. Abnormal density involving the right hilum extending into the right lung base worrisome for malignancy. Chest CT is recommended. Chest CT 03/02/17 15:46 IMPRESSION: Multiple large mass lesions are seen through the lung zuñiga, hilar and mediastinal regions. Findings concerning for malignancy. Scattered sclerotic changes are seen of multiple ribs. Assessment & Plan - Diagnosis (1) Acute renal failure Qualifiers: Acute renal failure type: unspecified Qualified Code(s): N17.9 - Acute kidney failure, unspecified Is this a current diagnosis for this admission?: YesPlan: Rehydrate (2) Diabetes mellitus type 2 in obese Is this a current diagnosis for this admission?: YesPlan: per primary team (3) Generalized weakness Is this a current diagnosis for this admission?: Yes (4) Anemia Qualifiers: Anemia type: iron deficiency Is this a current diagnosis for this admission?: YesPlan: Worried about ongoing blood loss and may need to evaluate for renal or GI blood loss. (5) Lung mass Is this a current diagnosis for this admission?: YesPlan: Check a CT of the Abdomen and schedule for a biosy - Time Time Spent: 50 to 70 Minutes Critical Time spent with patient: 25-34 minutes Medications reviewed and adjusted accordingly: Yes
[2017-03-04] MEDS: PREGABALIN 50 MG CAPSULE PO SCH ×2 (05:04→22:42)
[2017-03-04] MEDS: LANSOPRAZOLE 30 MG TAB.RAP.DR PO SCH (05:05)
[2017-03-04 05:42] LABS: HEMATOCRIT 27.2 % (36.0-47.0); HEMOGLOBIN 8.6 g/dL (12.0-15.5); HGB HCT DIFFERENCE -1.4; MEAN CORPUSCULAR HGB CONC 31.8 g/dL (32.0-36.0); MEAN CORPUSCULAR VOLUME 88 fl (80-97); RED BLOOD COUNT 3.09 10^6/uL (3.72-5.28); RED CELL DISTRIBUTION WIDTH 15.2 % (11.5-14.0); WHITE BLOOD COUNT 18.9 10^3/uL (4.0-10.5)
[2017-03-04 05:51] LABS: ALANINE AMINOTRANSFERASE 15 U/L (9-52); ALBUMIN 2.8 g/dL (3.5-5.0); ALKALINE PHOSPHATASE 94 U/L (38-126); ANION GAP 15 (5-19); ASPARTATE AMINO TRANSFERASE 20 U/L (14-36); BILIRUBIN,DIRECT 0.3 mg/dL (0.0-0.4); BILIRUBIN,TOTAL 0.6 mg/dL (0.2-1.3); BLOOD UREA NITROGEN 29 mg/dL (7-20); CALCIUM 9.9 mg/dL (8.4-10.2); CARBON DIOXIDE 23 mmol/L (22-30); CHLORIDE 105 mmol/L (98-107); CREATININE RESULT 1.77 mg/dL (0.52-1.25); GLUCOSE 114 mg/dL (75-110); SODIUM 143.2 mmol/L (137-145); TOTAL PROTEIN 6.3 g/dL (6.3-8.2)
[2017-03-04 06:06] LABS: BAND NEUTROPHILS % (MANUAL) 3 % (3-5); BASOPHILS % (MANUAL) 0 % (0-2); EOSINOPHILS % (MANUAL) 2 % (0-6); LYMPHOCYTES % (MANUAL) 6 % (13-45); TOTAL CELLS COUNTED 100
[2017-03-04 06:07] LABS: ANISOCYTOSIS 1+; POLYCHROMASIA 1+; TOXIC VACUOLATION PRESENT
[2017-03-04 06:19] LABS: CARCINOEMBRYONIC ANTIGEN 1.5 ng/mL (<3.0)
[2017-03-04 06:25] LABS: POTASSIUM 3.6 mmol/L (3.6-5.0)
[2017-03-04] MEDS ORDERED: DEXTROSE 50%-WATER 25 GM/50 ML DISP.SYRIN IV PRN ×2 (08:41)
[2017-03-04] MEDS ORDERED: GLUCAGON,HUMAN RECOMB 1 MG INJ SUBCUT PRN (08:41)
[2017-03-04] MEDS ORDERED: DEXTROSE 40% GEL 15 GM TUBE PO PRN ×2 (08:41)
--- NOTE | 2017-03-04 08:53 | PDOC PROGRESS REPORT ---
Subjective Progress Note for:: 03/04/17 Subjective:: Going to the bathroom all night due to IVF's Physical Exam Vital Signs: Temp Pulse Resp BP Pulse Ox 98.7 F 78 15 115/49 L 97 03/04/17 03:34 03/04/17 03:34 03/04/17 03:34 03/04/17 03:34 03/04/17 03:34 Intake & Output 03/03/17 03/04/17 03/05/17 06:59 06:59 06:59 Intake Total 1175 4026 Output Total 300 2500 Balance 875 1526 Weight 70.7 kg 70.7 kg General appearance: PRESENT: no acute distress Head exam: PRESENT: atraumatic, normocephalic Eye exam: PRESENT: conjunctiva pale, EOMI, PERRLA Ear exam: PRESENT: normal external ear exam Respiratory exam: PRESENT: clear to auscultation ponce Cardiovascular exam: PRESENT: RRR GI/Abdominal exam: PRESENT: normal bowel sounds, soft Neurological exam: PRESENT: alert, oriented to person, oriented to place, oriented to time, oriented to situation, CN II-XII grossly intact Results Laboratory Results: 03/04/17 04:24 03/04/17 04:24 03/03/17 03/04/17 03/04/17 04:41 04:24 04:24 WBC 18.9 H RBC 3.09 L Hgb 8.6 L Hct 27.2 L MCV 88 MCH 28.0 MCHC 31.8 L RDW 15.2 H Plt Count 549 H Seg Neutrophils % Not Reportable Lymphocytes % Not Reportable Monocytes % Not Reportable Eosinophils % Not Reportable Basophils % Not Reportable Absolute Neutrophils Not Reportable Absolute Lymphocytes Not Reportable Absolute Monocytes Not Reportable Absolute Eosinophils Not Reportable Absolute Basophils Not Reportable Sodium 143.2 Potassium 3.6 D Chloride 105 Carbon Dioxide 23 Anion Gap 15 BUN 29 H Creatinine 1.77 H Est GFR ( Amer) 34 L Est GFR (Non-Af Amer) 28 L Glucose 114 H Calcium 9.9 Total Bilirubin 0.6 AST 20 ALT 15 Alkaline Phosphatase 94 Total Protein 6.3 Albumin 2.8 L Free T4 1.30 Impressions: Chest X-Ray 03/02/17 12:06 IMPRESSION: Abnormal density is seen bilaterally worrisome for malignancy although pneumonia is also consideration. Chest CT is recommended for further evaluation. Shoulder X-Ray 03/02/17 12:06 IMPRESSION: 1. Old posttraumatic changes involving the proximal right humerus with severe degenerative changes involving the AC joint and the glenohumeral joint. 2. Abnormal density involving the right hilum extending into the right lung base worrisome for malignancy. Chest CT is recommended. Chest CT 03/02/17 15:46 IMPRESSION: Multiple large mass lesions are seen through the lung zuñiga, hilar and mediastinal regions. Findings concerning for malignancy. Scattered sclerotic changes are seen of multiple ribs. Assessment & Plan - Diagnosis (1) Acute renal failure Qualifiers: Acute renal failure type: unspecified Qualified Code(s): N17.9 - Acute kidney failure, unspecified Is this a current diagnosis for this admission?: YesPlan: Slightly improved. (2) Diabetes mellitus type 2 in obese Is this a current diagnosis for this admission?: Yes (3) Generalized weakness Is this a current diagnosis for this admission?: Yes (4) Anemia Qualifiers: Anemia type: iron deficiency Is this a current diagnosis for this admission?: YesPlan: Treated with IV iron last night and transfuse this am (5) Lung mass Is this a current diagnosis for this admission?: YesPlan: CT of the abdomen and pelvis today to see if GI or malignancy to account for blood loss and possible malignancy. - Time Time Spent with patient: 25-34 minutes Critical Time spent with patient: 15-24 minutes Medications reviewed and adjusted accordingly: Yes
[2017-03-04] MEDS ORDERED: [UNRECOGNIZED DRUG - MIXTURE] PO SCH (10:00)
[2017-03-04] MEDS ORDERED: [UNRECOGNIZED DRUG - OTHER] PO SCH (10:00)
[2017-03-04] MEDS ORDERED: VITAMIN D3 PO SCH (10:00)
[2017-03-04] MEDS ORDERED: CALCIUM CARBONATE PO SCH (10:00)
[2017-03-04] MEDS ORDERED: NORMAL SALINE 1000 ML 1,000 ML IV PRN (11:01)
--- NOTE | 2017-03-04 11:01 | PDOC PROGRESS REPORT ---
Subjective Progress Note for:: 03/04/17 Subjective:: Still with generalized malaise and fatigue. Denies shortness of breath, PND or orthopnea, chest pain or pleurisy. No pain elsewhere as well . No nausea or vomiting, no abdominal pain, no diarrhea. Appetite still poor. Physical Exam Vital Signs: Temp Pulse Resp BP Pulse Ox 99.4 F 86 18 126/50 H 98 03/04/17 08:16 03/04/17 08:16 03/04/17 08:16 03/04/17 08:16 03/04/17 08:16 Intake & Output 03/03/17 03/04/17 03/05/17 06:59 06:59 06:59 Intake Total 1175 4026 Output Total 300 2500 Balance 875 1526 Weight 70.7 kg 70.7 kg General appearance: PRESENT: no acute distress, cooperative Head exam: PRESENT: normocephalic Eye exam: PRESENT: conjunctiva pale, EOMI Mouth exam: PRESENT: moist, neck supple Neck exam: ABSENT: JVD Respiratory exam: PRESENT: clear to auscultation ponce Cardiovascular exam: PRESENT: RRR. ABSENT: gallop GI/Abdominal exam: PRESENT: soft. ABSENT: distended, tenderness Extremities exam: PRESENT: other - Trace pretibial edema Neurological exam: PRESENT: alert, awake, oriented to situation Skin exam: PRESENT: dry, warm. ABSENT: cyanosis Results Laboratory Results: 03/04/17 04:24 03/04/17 04:24 03/03/17 03/04/17 03/04/17 04:41 04:24 04:24 WBC 18.9 H RBC 3.09 L Hgb 8.6 L Hct 27.2 L MCV 88 MCH 28.0 MCHC 31.8 L RDW 15.2 H Plt Count 549 H Seg Neutrophils % Not Reportable Lymphocytes % Not Reportable Monocytes % Not Reportable Eosinophils % Not Reportable Basophils % Not Reportable Absolute Neutrophils Not Reportable Absolute Lymphocytes Not Reportable Absolute Monocytes Not Reportable Absolute Eosinophils Not Reportable Absolute Basophils Not Reportable Sodium 143.2 Potassium 3.6 D Chloride 105 Carbon Dioxide 23 Anion Gap 15 BUN 29 H Creatinine 1.77 H Est GFR ( Amer) 34 L Est GFR (Non-Af Amer) 28 L Glucose 114 H Calcium 9.9 Total Bilirubin 0.6 AST 20 ALT 15 Alkaline Phosphatase 94 Total Protein 6.3 Albumin 2.8 L Free T4 1.30 Impressions: Chest X-Ray 03/02/17 12:06 IMPRESSION: Abnormal density is seen bilaterally worrisome for malignancy although pneumonia is also consideration. Chest CT is recommended for further evaluation. Shoulder X-Ray 03/02/17 12:06 IMPRESSION: 1. Old posttraumatic changes involving the proximal right humerus with severe degenerative changes involving the AC joint and the glenohumeral joint. 2. Abnormal density involving the right hilum extending into the right lung base worrisome for malignancy. Chest CT is recommended. Chest CT 03/02/17 15:46 IMPRESSION: Multiple large mass lesions are seen through the lung zuñiga, hilar and mediastinal regions. Findings concerning for malignancy. Scattered sclerotic changes are seen of multiple ribs. Assessment & Plan - Diagnosis (1) Sepsis Qualifiers: Sepsis type: sepsis due to unspecified organism Qualified Code(s): A41.9 - Sepsis, unspecified organism Is this a current diagnosis for this admission?: Yes (2) UTI (urinary tract infection) Qualifiers: Urinary tract infection type: acute cystitis Hematuria presence: without hematuria Qualified Code(s): N30.00 - Acute cystitis without hematuria Is this a current diagnosis for this admission?: Yes (3) Acute renal failure Qualifiers: Acute renal failure type: unspecified Qualified Code(s): N17.9 - Acute kidney failure, unspecified Is this a current diagnosis for this admission?: Yes (4) Anemia Qualifiers: Anemia type: iron deficiency Is this a current diagnosis for this admission?: Yes (5) Hypomagnesemia Is this a current diagnosis for this admission?: Yes (6) Lung mass Is this a current diagnosis for this admission?: Yes (7) Asthma Qualifiers: Asthma complication type: uncomplicated Is this a current diagnosis for this admission?: Yes (8) Diabetes mellitus type 2 in obese Is this a current diagnosis for this admission?: Yes (9) Fibromyalgia Is this a current diagnosis for this admission?: Yes (10) Hyperlipidemia Qualifiers: Hyperlipidemia type: unspecified Qualified Code(s): E78.5 - Hyperlipidemia, unspecified Is this a current diagnosis for this admission?: Yes (11) Hypertension, essential Is this a current diagnosis for this admission?: Yes (12) Hypothyroidism (acquired) Is this a current diagnosis for this admission?: Yes (13) Rheumatoid arthritis Qualifiers: Rheumatoid arthritis location: unspecified site Rheumatoid factor presence: unspecified presence Qualified Code(s): M06.9 - Rheumatoid arthritis, unspecified Is this a current diagnosis for this admission?: Yes - Time Time Spent with patient: 25-34 minutes - Plan Summary Plan Summary: I will decrease the patient's Lyrica dose. We will change antibiotic to intravenous Levaquin. Escherichia coli is pansensitive. Discontinue Invanz. Case discussed w/ Oncology service. Obtain CT of the abdomen and pelvis. Continue other medication and supportive care. Increase IV fluids and recheck creatinine in the morning.
[2017-03-04] MEDS: DOCUSATE SODIUM 100 MG CAPSULE PO SCH ×2 (11:37→20:01)
[2017-03-04] MEDS: CALCIUM CARBONATE 250 MG/VITAMIN D3 125 UNIT TABLET PO SCH ×2 (11:37→16:45)
[2017-03-04] MEDS: LEVOTHYROXINE SODIUM 0.025 MG TABLET PO SCH (11:38)
[2017-03-04] MEDS: ATENOLOL 50 MG TABLET PO SCH ×2 (11:39→16:45)
[2017-03-04] MEDS: ENOXAPARIN SODIUM INJ 30 MG/0.3 ML DISP.SYRIN SUBCUT SCH (11:40)
[2017-03-04] MEDS: CHOLECALCIFEROL (D3) 1,000 UNIT TABLET PO SCH (11:51)
[2017-03-04] MEDS ORDERED: LEVOFLOXACIN 750 MG/D5W RTU 750 MG/150 ML RTUPB IV ONE (12:00)
[2017-03-04] MEDS: ACETAMINOPHEN 325 MG TABLET PO PRN (19:30)
[2017-03-04] MEDS: ATORVASTATIN CALCIUM 10 MG TABLET PO SCH (22:42)
[2017-03-04] MEDS: ASPIRIN 81 MG TABLET, ENT COATED PO SCH (22:42)
[2017-03-04] MEDS: LORATADINE 10 MG TABLET PO SCH (22:42)
[2017-03-04] MEDS: MONTELUKAST SODIUM 10 MG TABLET PO SCH (22:43)
[2017-03-05] MEDS: ACETAMINOPHEN 325 MG TABLET PO PRN ×3 (02:31→20:08)
[2017-03-05] MEDS: LANSOPRAZOLE 30 MG TAB.RAP.DR PO SCH (05:57)
[2017-03-05 07:05] LABS: ANION GAP 14 (5-19); BLOOD UREA NITROGEN 23 mg/dL (7-20); CALCIUM 9.7 mg/dL (8.4-10.2); CARBON DIOXIDE 21 mmol/L (22-30); CHLORIDE 106 mmol/L (98-107); CREATININE RESULT 1.76 mg/dL (0.52-1.25); GLUCOSE 104 mg/dL (75-110); POTASSIUM 3.9 mmol/L (3.6-5.0); SODIUM 141.4 mmol/L (137-145)
--- NOTE | 2017-03-05 09:52 | PDOC PROGRESS REPORT ---
Subjective Progress Note for:: 03/05/17 Subjective:: Feeling slightly better today. No chills or fever. No nausea or vomiting. No diarrhea. Creatinine improved. WBC continues to trend down. Physical Exam Vital Signs: Temp Pulse Resp BP Pulse Ox 98.1 F 74 18 132/58 H 99 03/05/17 07:52 03/05/17 07:52 03/05/17 07:52 03/05/17 07:52 03/05/17 07:52 Intake & Output 03/04/17 03/05/17 03/06/17 06:59 06:59 06:59 Intake Total 4026 1100 Output Total 2500 630 Balance 1526 470 Weight 70.7 kg 70.3 kg General appearance: PRESENT: no acute distress, cooperative Head exam: PRESENT: normocephalic Eye exam: PRESENT: EOMI Mouth exam: PRESENT: moist, neck supple Neck exam: ABSENT: JVD Respiratory exam: PRESENT: clear to auscultation ponce. ABSENT: rhonchi, wheezes Cardiovascular exam: PRESENT: RRR. ABSENT: gallop GI/Abdominal exam: PRESENT: normal bowel sounds, soft. ABSENT: distended Extremities exam: ABSENT: pedal edema Neurological exam: PRESENT: alert, awake, oriented to situation Skin exam: PRESENT: dry, warm. ABSENT: cyanosis Results Laboratory Results: 03/04/17 04:24 03/05/17 06:14 03/04/17 03/05/17 16:45 06:14 Sodium 141.4 Potassium 3.9 Chloride 106 Carbon Dioxide 21 L Anion Gap 14 BUN 23 H Creatinine 1.76 H Est GFR ( Amer) 34 L Est GFR (Non-Af Amer) 28 L Glucose 104 Calcium 9.7 Stool Occult Blood NEGATIVE Impressions: Chest X-Ray 03/02/17 12:06 IMPRESSION: Abnormal density is seen bilaterally worrisome for malignancy although pneumonia is also consideration. Chest CT is recommended for further evaluation. Shoulder X-Ray 03/02/17 12:06 IMPRESSION: 1. Old posttraumatic changes involving the proximal right humerus with severe degenerative changes involving the AC joint and the glenohumeral joint. 2. Abnormal density involving the right hilum extending into the right lung base worrisome for malignancy. Chest CT is recommended. Chest CT 03/02/17 15:46 IMPRESSION: Multiple large mass lesions are seen through the lung zuñiga, hilar and mediastinal regions. Findings concerning for malignancy. Scattered sclerotic changes are seen of multiple ribs. Abdomen/Pelvis CT 03/04/17 07:00 IMPRESSION: Pleural-based masses throughout the lung bases bilaterally. 1.5 x 1 cm soft tissue nodule ventral to the transverse colon no abnormal but nonspecific 2.6 x 2.3 cm right adrenal nodule Assessment & Plan - Diagnosis (1) Sepsis Qualifiers: Sepsis type: sepsis due to unspecified organism Qualified Code(s): A41.9 - Sepsis, unspecified organism Is this a current diagnosis for this admission?: Yes (2) UTI (urinary tract infection) Qualifiers: Urinary tract infection type: acute cystitis Hematuria presence: without hematuria Qualified Code(s): N30.00 - Acute cystitis without hematuria Is this a current diagnosis for this admission?: Yes (3) Acute renal failure Qualifiers: Acute renal failure type: unspecified Qualified Code(s): N17.9 - Acute kidney failure, unspecified Is this a current diagnosis for this admission?: Yes (4) Anemia Qualifiers: Anemia type: iron deficiency Is this a current diagnosis for this admission?: Yes (5) Hypomagnesemia Is this a current diagnosis for this admission?: Yes (6) Lung mass Is this a current diagnosis for this admission?: Yes (7) Asthma Qualifiers: Asthma complication type: uncomplicated Is this a current diagnosis for this admission?: Yes (8) Diabetes mellitus type 2 in obese Is this a current diagnosis for this admission?: Yes (9) Fibromyalgia Is this a current diagnosis for this admission?: Yes (10) Hyperlipidemia Qualifiers: Hyperlipidemia type: unspecified Qualified Code(s): E78.5 - Hyperlipidemia, unspecified Is this a current diagnosis for this admission?: Yes (11) Hypertension, essential Is this a current diagnosis for this admission?: Yes (12) Hypothyroidism (acquired) Is this a current diagnosis for this admission?: Yes (13) Rheumatoid arthritis Qualifiers: Rheumatoid arthritis location: unspecified site Rheumatoid factor presence: unspecified presence Qualified Code(s): M06.9 - Rheumatoid arthritis, unspecified Is this a current diagnosis for this admission?: Yes - Time Time Spent with patient: 15-24 minutes - Plan Summary Plan Summary: Continue intravenous antibiotic. Follow cultures. Start physical therapy. Awaiting bronchoscopy. May need CT guided biopsy later.
[2017-03-05] MEDS ORDERED: NORMAL SALINE 1000 ML 1,000 ML IV PRN (09:53)
[2017-03-05] MEDS: LEVOFLOXACIN 750 MG/D5W RTU 750 MG/150 ML RTUPB IV SCH (10:36)
[2017-03-05] MEDS: DOCUSATE SODIUM 100 MG CAPSULE PO SCH ×2 (10:37→18:01)
[2017-03-05] MEDS: PREGABALIN 50 MG CAPSULE PO SCH ×2 (10:38→21:23)
[2017-03-05] MEDS: CHOLECALCIFEROL (D3) 1,000 UNIT TABLET PO SCH (10:38)
[2017-03-05] MEDS: CALCIUM CARBONATE 250 MG/VITAMIN D3 125 UNIT TABLET PO SCH ×2 (10:38→18:01)
[2017-03-05] MEDS: ENOXAPARIN SODIUM INJ 30 MG/0.3 ML DISP.SYRIN SUBCUT SCH (10:39)
[2017-03-05] MEDS: ATENOLOL 50 MG TABLET PO SCH ×2 (10:40→12:50)
--- NOTE | 2017-03-05 11:18 | PDOC PROGRESS REPORT ---
Subjective Progress Note for:: 03/05/17 Subjective:: No acute events overnight, patient still having fairly severe cough. Physical Exam Vital Signs: Temp Pulse Resp BP Pulse Ox 98.1 F 74 18 132/58 H 99 03/05/17 07:52 03/05/17 07:52 03/05/17 07:52 03/05/17 07:52 03/05/17 07:52 Intake & Output 03/04/17 03/05/17 03/06/17 06:59 06:59 06:59 Intake Total 4026 1100 Output Total 2500 630 Balance 1526 470 Weight 70.7 kg 70.3 kg General appearance: PRESENT: no acute distress, well-developed, well-nourished Head exam: PRESENT: atraumatic, normocephalic Eye exam: PRESENT: conjunctiva pink, EOMI, PERRLA. ABSENT: scleral icterus Ear exam: PRESENT: normal external ear exam Mouth exam: PRESENT: moist, tongue midline Neck exam: ABSENT: carotid bruit, JVD, lymphadenopathy, thyromegaly Respiratory exam: PRESENT: clear to auscultation ponce. ABSENT: rales, rhonchi, wheezes Cardiovascular exam: PRESENT: RRR. ABSENT: diastolic murmur, rubs, systolic murmur Pulses: PRESENT: normal dorsalis pedis pul Vascular exam: PRESENT: normal capillary refill GI/Abdominal exam: PRESENT: normal bowel sounds, soft. ABSENT: distended, guarding, mass, organolmegaly, rebound, tenderness Rectal exam: PRESENT: deferred Extremities exam: PRESENT: full ROM. ABSENT: calf tenderness, clubbing, pedal edema Neurological exam: PRESENT: alert, awake, oriented to person, oriented to place , oriented to time, oriented to situation, CN II-XII grossly intact. ABSENT: motor sensory deficit Psychiatric exam: PRESENT: appropriate affect, normal mood. ABSENT: homicidal ideation, suicidal ideation Skin exam: PRESENT: dry, intact, warm. ABSENT: cyanosis, rash Results Laboratory Results: 03/04/17 04:24 03/05/17 06:14 03/04/17 03/05/17 16:45 06:14 Sodium 141.4 Potassium 3.9 Chloride 106 Carbon Dioxide 21 L Anion Gap 14 BUN 23 H Creatinine 1.76 H Est GFR ( Amer) 34 L Est GFR (Non-Af Amer) 28 L Glucose 104 Calcium 9.7 Stool Occult Blood NEGATIVE Impressions: Chest X-Ray 03/02/17 12:06 IMPRESSION: Abnormal density is seen bilaterally worrisome for malignancy although pneumonia is also consideration. Chest CT is recommended for further evaluation. Shoulder X-Ray 03/02/17 12:06 IMPRESSION: 1. Old posttraumatic changes involving the proximal right humerus with severe degenerative changes involving the AC joint and the glenohumeral joint. 2. Abnormal density involving the right hilum extending into the right lung base worrisome for malignancy. Chest CT is recommended. Chest CT 03/02/17 15:46 IMPRESSION: Multiple large mass lesions are seen through the lung zuñiga, hilar and mediastinal regions. Findings concerning for malignancy. Scattered sclerotic changes are seen of multiple ribs. Abdomen/Pelvis CT 03/04/17 07:00 IMPRESSION: Pleural-based masses throughout the lung bases bilaterally. 1.5 x 1 cm soft tissue nodule ventral to the transverse colon no abnormal but nonspecific 2.6 x 2.3 cm right adrenal nodule Assessment & Plan - Diagnosis (1) Lung mass Is this a current diagnosis for this admission?: YesPlan: Bilateral hilar mediastinal mass, pleural-based masses, also with adrenal nodule , concerning for metastatic disease picture. Most likely lung malignancy would be the highest probability but certainly any other lesions could be possible. Next step would be bronchoscopy. I will add Areli Mccarty for cough today. Today had a long discussion with patient about next steps of care, described the procedure, described what to expect next, spent greater than 35 minutes in discussion. - Time Time Spent with patient: 35 or more minutes Critical Time spent with patient: 35 or more minutes - Inpatient Certification Based on my medical assessment, after consideration of the patient's comorbidities, presenting symptoms, or acuity I expect that the services needed warrant INPATIENT care.: Yes I certify that my determination is in accordance with my understanding of Medicare's requirements for reasonable and necessary INPATIENT services [42 CFR 412.3e].: Yes Medical Necessity: Need for Surgery
[2017-03-05] MEDS: LEVOTHYROXINE SODIUM 0.025 MG TABLET PO SCH (12:50)
--- NOTE | 2017-03-05 17:02 | PDOC CONSULTATION ---
Consultation Consult Date: 03/02/17 Attending physician:: JOSEPH READ Consult reason:: lung mass History of Present Illness Admission Date/PCP: 03/02/17 19:09 XIMENA ALONZO MD History of Present Illness: MARILY DENNIS is a 76 year old female, admitted for weakness she has multiple medical problem recently had a fall,she ADMITS TO [facility] ADL'S worse last 2 month 60 lb decrease in weight.She denies smoking.She denies hx of lung disease as a child,admits to hx passive smoke as a child and as a adult.She admits to exsposure to second hand smoke, dirt ,dust, chemical and possibly asbestos,no pets,no recent travel.No anginal like chest pain 2pillow orthopnea ,pnd and edema. Past Medical History Cardiac Medical History: Reports: Hyperlipidema, Hypertension Denies: Myocardial Infarction Pulmonary Medical History: Reports: Asthma - controlled Neurological Medical History: Denies: Seizures Endocrine Medical History: Reports: Diabetes Mellitus Type 2, Hypothyroidism Malignancy Medical History: Reports: Other - Anemia of chronic disease GI Medical History: Denies: Hepatitis, Hiatal Hernia Musculoskeltal Medical History: Reports: Fibromyalgia, Other - Rheumatoid arthritis Psychiatric Medical History: Denies: Depression Hematology: Reports: Anemia Denies: Sickle Cell Disease Past Surgical History Past Surgical History: Reports: Orthopedic Surgery - Right shoulder surgery for fracture, Other - Cataract surgery Denies: Amputation, Mastectomy, Pacemaker Social History Information Source: Patient Smoking Status: Never Smoker Passive smoke exposure as: Both Frequency of Alcohol Use: None Hx Recreational Drug Use: No Drugs: None Hx Prescription Drug Abuse: No Have you been exposed to any sick contacts recently?: No Have you had any recent respiratory illnesses?: No Have you travelled outside of [place] in the past 12 months?: No Family History Family History: Reviewed & Not Pertinent Parental Family History Reviewed: Yes Children Family History Reviewed: Yes Sibling(s) Family History Reviewed.: Yes Medication/Allergy Home Medications: Alendronate Sodium [Fosamax 70 mg Tablet] 70 mg PO WE 03/02/17 Amlodipine Besylate [Norvasc 10 mg Tablet] 10 mg PO QHS 03/02/17 Aspirin [Ecotrin 81 mg EC Tablet] 81 mg PO QHS 03/02/17 Atenolol [Tenormin 50 mg Tablet] 50 mg PO BID@0800,1200 03/02/17 Atorvastatin Calcium [Lipitor 10 mg Tablet] 10 mg PO QHS 03/02/17 Calcium Carbonate/Vitamin D3 [Calcium 600-Vit D3 800 Tablet] 2 tab PO DAILY Cholecalciferol (Vitamin D3) [Vitamin D3 5000 unit Capsule] 10,000 units PO DAILY 03/02/17 Fexofenadine HCl [Shwetha] 180 mg PO QHS 03/02/17 Glucosa Pined[place] 2Kcl/Chondroitin [place] [Glucosamine Chondroitin Cap[place]] 1 tab PO BID Hydrochlorothiazide 25 mg PO QAM 03/02/17 Levothyroxine Sodium [Synthroid 0.025 mg Tablet] 25 mcg PO ACLUNCH 03/02/17 Metformin HCl [Glucophage] 500 mg PO ACLUNCH 03/02/17 Metformin HCl [Glucophage] 850 mg PO BIDACBS 03/02/17 Montelukast Sodium [Singulair 10 mg Tablet] 10 mg PO QHS 03/02/17 Pregabalin [Lyrica 50 mg Capsule] 50 mg PO Q8 03/02/17 Tramadol HCl [Ultram 50 mg Tablet] 100 mg PO Q8 03/02/17 Allergies/Adverse Reactions: SHAUN Inhibitors [Shaun Inhibitors] Allergy (Verified 08/26/15 08:54) ascorbate calcium [From Vitamin C] Allergy (Verified 08/26/15 08:54) Swelling of hands and/or feet ascorbate sodium [From Vitamin C] Allergy (Verified 08/26/15 08:54) Swelling of hands and/or feet ascorbic acid [From Vitamin C] Allergy (Verified 08/26/15 08:54) Swelling of hands and/or feet buffers [From Vitamin C] Allergy (Verified 08/26/15 08:54) Swelling of hands and/or feet codeine [Codeine] Allergy (Verified 08/26/15 08:54) Hives multivitamin with minerals [From Vitamin C] Allergy (Verified 08/26/15 08:54) Swelling of hands and/or feet oxycodone [Oxycodone] Allergy (Verified 08/26/15 08:54) Hives Penicillins Allergy (Verified 08/26/15 08:54) Hives Tetanus Vaccines and Toxoid [Tetanus] Allergy (Verified 08/26/15 08:54) itching reddness Review of Systems Constitutional: PRESENT: fatigue, weakness, weight loss Physical Exam Vital Signs: Temp Pulse Resp BP Pulse Ox 98.1 F 80 18 132/58 H 99 03/05/17 07:52 03/05/17 14:00 03/05/17 07:52 03/05/17 07:52 03/05/17 07:52 Intake & Output 03/04/17 03/05/17 03/06/17 06:59 06:59 06:59 Intake Total 4026 1100 Output Total 2500 630 Balance 1526 470 Weight 70.7 kg 70.3 kg General appearance: PRESENT: no acute distress, disheveled, obese Head exam: PRESENT: atraumatic, normocephalic Eye exam: PRESENT: conjunctiva pale, EOMI Mouth exam: PRESENT: moist, neck supple Neck exam: ABSENT: carotid bruit, JVD, lymphadenopathy, thyromegaly Respiratory exam: PRESENT: crackles, prolonged expiratory phas, rhonchi, unlabored Cardiovascular exam: PRESENT: RRR, +S1, +S2 Pulses: PRESENT: normal radial pulses GI/Abdominal exam: PRESENT: normal bowel sounds, soft. ABSENT: distended, guarding, mass, organolmegaly, rebound, tenderness Rectal exam: PRESENT: deferred Gentrourinary exam: PRESENT: indwelling catheter Neurological exam: PRESENT: alert, awake Skin exam: PRESENT: dry, warm. ABSENT: urticaria Results Laboratory Results: 03/04/17 04:24 03/05/17 06:14 03/04/17 03/05/17 16:45 06:14 Sodium 141.4 Potassium 3.9 Chloride 106 Carbon Dioxide 21 L Anion Gap 14 BUN 23 H Creatinine 1.76 H Est GFR ( Amer) 34 L Est GFR (Non-Af Amer) 28 L Glucose 104 Calcium 9.7 Stool Occult Blood NEGATIVE Impressions: Chest X-Ray 03/02/17 12:06 IMPRESSION: Abnormal density is seen bilaterally worrisome for malignancy although pneumonia is also consideration. Chest CT is recommended for further evaluation. Shoulder X-Ray 03/02/17 12:06 IMPRESSION: 1. Old posttraumatic changes involving the proximal right humerus with severe degenerative changes involving the AC joint and the glenohumeral joint. 2. Abnormal density involving the right hilum extending into the right lung base worrisome for malignancy. Chest CT is recommended. Chest CT 04/19/17 15:46 IMPRESSION: Multiple large mass lesions are seen through the lung zuñiga, hilar and mediastinal regions. Findings concerning for malignancy. Scattered sclerotic changes are seen of multiple ribs. Abdomen/Pelvis CT 03/04/17 07:00 IMPRESSION: Pleural-based masses throughout the lung bases bilaterally. 1.5 x 1 cm soft tissue nodule ventral to the transverse colon no abnormal but nonspecific 2.6 x 2.3 cm right adrenal nodule Assessment & Plan - Diagnosis (1) Anemia Qualifiers: Anemia type: iron deficiency Is this a current diagnosis for this admission?: Yes (2) Generalized weakness Is this a current diagnosis for this admission?: Yes (3) Lung mass Is this a current diagnosis for this admission?: YesPlan: discussed with patient need to get tissue sample;discussed risk associated with bronchoscopy lavage and biost patient is willing to proceed with this procedure
--- NOTE | 2017-03-05 17:08 | PDOC PROGRESS REPORT ---
Subjective Progress Note for:: 03/03/17 Subjective:: still weak Physical Exam Vital Signs: Temp Pulse Resp BP Pulse Ox 98.1 F 80 18 132/58 H 99 03/05/17 07:52 03/05/17 14:00 03/05/17 07:52 03/05/17 07:52 03/05/17 07:52 Intake & Output 03/04/17 03/05/17 03/06/17 06:59 06:59 06:59 Intake Total 4026 1100 Output Total 2500 630 Balance 1526 470 Weight 70.7 kg 70.3 kg General appearance: PRESENT: no acute distress, cooperative, disheveled, obese Head exam: PRESENT: atraumatic, normocephalic Eye exam: PRESENT: conjunctiva pale, EOMI Mouth exam: PRESENT: dry mucosa Neck exam: ABSENT: carotid bruit, JVD, lymphadenopathy, thyromegaly Respiratory exam: PRESENT: decreased breath sounds, rales, rhonchi, unlabored Cardiovascular exam: PRESENT: RRR, +S1, +S2 Pulses: PRESENT: normal radial pulses GI/Abdominal exam: PRESENT: normal bowel sounds, soft. ABSENT: distended, guarding, mass, organolmegaly, rebound, tenderness Rectal exam: PRESENT: deferred Gentrourinary exam: PRESENT: indwelling catheter Neurological exam: PRESENT: awake Skin exam: PRESENT: dry Results Laboratory Results: 03/04/17 04:24 03/05/17 06:14 03/04/17 03/05/17 16:45 06:14 Sodium 141.4 Potassium 3.9 Chloride 106 Carbon Dioxide 21 L Anion Gap 14 BUN 23 H Creatinine 1.76 H Est GFR ( Amer) 34 L Est GFR (Non-Af Amer) 28 L Glucose 104 Calcium 9.7 Stool Occult Blood NEGATIVE Impressions: Chest X-Ray 03/02/17 12:06 IMPRESSION: Abnormal density is seen bilaterally worrisome for malignancy although pneumonia is also consideration. Chest CT is recommended for further evaluation. Shoulder X-Ray 03/02/17 12:06 IMPRESSION: 1. Old posttraumatic changes involving the proximal right humerus with severe degenerative changes involving the AC joint and the glenohumeral joint. 2. Abnormal density involving the right hilum extending into the right lung base worrisome for malignancy. Chest CT is recommended. Chest CT 03/02/17 15:46 IMPRESSION: Multiple large mass lesions are seen through the lung zuñiga, hilar and mediastinal regions. Findings concerning for malignancy. Scattered sclerotic changes are seen of multiple ribs. Abdomen/Pelvis CT 03/04/17 07:00 IMPRESSION: Pleural-based masses throughout the lung bases bilaterally. 1.5 x 1 cm soft tissue nodule ventral to the transverse colon no abnormal but nonspecific 2.6 x 2.3 cm right adrenal nodule Assessment & Plan - Diagnosis (1) Anemia Qualifiers: Anemia type: iron deficiency Is this a current diagnosis for this admission?: Yes (2) Generalized weakness Is this a current diagnosis for this admission?: Yes (3) Lung mass Is this a current diagnosis for this admission?: YesPlan: awaiting schedule for bronchoscopy
--- NOTE | 2017-03-05 17:16 | PDOC PROGRESS REPORT ---
Subjective Progress Note for:: 03/03/17 Subjective:: still weak Physical Exam Vital Signs: Temp Pulse Resp BP Pulse Ox 98.1 F 80 18 132/58 H 99 03/05/17 07:52 03/05/17 14:00 03/05/17 07:52 03/05/17 07:52 03/05/17 07:52 Intake & Output 03/04/17 03/05/17 03/06/17 06:59 06:59 06:59 Intake Total 4026 1100 Output Total 2500 630 Balance 1526 470 Weight 70.7 kg 70.3 kg General appearance: PRESENT: no acute distress, disheveled, obese Head exam: PRESENT: atraumatic, normocephalic Eye exam: PRESENT: conjunctiva pale, EOMI Mouth exam: PRESENT: dry mucosa Neck exam: ABSENT: carotid bruit, JVD, lymphadenopathy, thyromegaly Respiratory exam: PRESENT: decreased breath sounds, rales, rhonchi, unlabored Cardiovascular exam: PRESENT: irregular rhythm Pulses: PRESENT: normal radial pulses GI/Abdominal exam: PRESENT: normal bowel sounds, soft. ABSENT: distended, guarding, mass, organolmegaly, rebound, tenderness Rectal exam: PRESENT: deferred Gentrourinary exam: PRESENT: indwelling catheter Neurological exam: PRESENT: alert Skin exam: PRESENT: dry Results Laboratory Results: 03/04/17 04:24 03/05/17 06:14 03/04/17 03/05/17 16:45 06:14 Sodium 141.4 Potassium 3.9 Chloride 106 Carbon Dioxide 21 L Anion Gap 14 BUN 23 H Creatinine 1.76 H Est GFR ( Amer) 34 L Est GFR (Non-Af Amer) 28 L Glucose 104 Calcium 9.7 Stool Occult Blood NEGATIVE Impressions: Chest X-Ray 03/02/17 12:06 IMPRESSION: Abnormal density is seen bilaterally worrisome for malignancy although pneumonia is also consideration. Chest CT is recommended for further evaluation. Shoulder X-Ray 03/02/17 12:06 IMPRESSION: 1. Old posttraumatic changes involving the proximal right humerus with severe degenerative changes involving the AC joint and the glenohumeral joint. 2. Abnormal density involving the right hilum extending into the right lung base worrisome for malignancy. Chest CT is recommended. Chest CT 03/02/17 15:46 IMPRESSION: Multiple large mass lesions are seen through the lung zuñiga, hilar and mediastinal regions. Findings concerning for malignancy. Scattered sclerotic changes are seen of multiple ribs. Abdomen/Pelvis CT 03/04/17 07:00 IMPRESSION: Pleural-based masses throughout the lung bases bilaterally. 1.5 x 1 cm soft tissue nodule ventral to the transverse colon no abnormal but nonspecific 2.6 x 2.3 cm right adrenal nodule Assessment & Plan - Diagnosis (1) Anemia Qualifiers: Anemia type: iron deficiency Is this a current diagnosis for this admission?: Yes (2) Generalized weakness Is this a current diagnosis for this admission?: Yes (3) Lung mass Is this a current diagnosis for this admission?: YesPlan: Tue at 1:00 for bronch
[2017-03-05] MEDS: BENZONATATE 100 MG CAPSULE PO PRN (18:04)
[2017-03-05] MEDS: ASPIRIN 81 MG TABLET, ENT COATED PO SCH (21:23)
[2017-03-05] MEDS: LORATADINE 10 MG TABLET PO SCH (21:23)
[2017-03-05] MEDS: ATORVASTATIN CALCIUM 10 MG TABLET PO SCH (21:23)
[2017-03-05] MEDS: MONTELUKAST SODIUM 10 MG TABLET PO SCH (21:23)
[2017-03-06 04:57] LABS: HEMATOCRIT 23.6 % (36.0-47.0); HGB HCT DIFFERENCE -1.1; MEAN CORPUSCULAR HEMOGLOBIN 27.9 pg (27.0-33.4); MEAN CORPUSCULAR HGB CONC 31.6 g/dL (32.0-36.0); MEAN CORPUSCULAR VOLUME 88 fl (80-97); RED BLOOD COUNT 2.67 10^6/uL (3.72-5.28); RED CELL DISTRIBUTION WIDTH 15.3 % (11.5-14.0); WHITE BLOOD COUNT 20.8 10^3/uL (4.0-10.5)
[2017-03-06 04:59] LABS: ANION GAP 15 (5-19); BLOOD UREA NITROGEN 22 mg/dL (7-20); CALCIUM 9.2 mg/dL (8.4-10.2); CARBON DIOXIDE 19 mmol/L (22-30); CHLORIDE 107 mmol/L (98-107); CREATININE RESULT 1.82 mg/dL (0.52-1.25); GLUCOSE 89 mg/dL (75-110); POTASSIUM 3.8 mmol/L (3.6-5.0); SODIUM 140.5 mmol/L (137-145)
[2017-03-06 05:52] LABS: HEMOGLOBIN 7.5 g/dL (12.0-15.5)
[2017-03-06] MEDS ORDERED: NORMAL SALINE 250 ML IV PRN ×2 (09:01)
[2017-03-06] MEDS ORDERED: NORMAL SALINE 1000 ML 1,000 ML IV PRN ×2 (09:01→20:39)
[2017-03-06] MEDS ORDERED: FUROSEMIDE INJ/PF 40 MG/4 ML SDV IV PRN (09:01)
--- NOTE | 2017-03-06 09:06 | PDOC PROGRESS REPORT ---
Subjective Progress Note for:: 03/06/17 Subjective:: Patient reportedly with some wheezing earlier, patient denies any shortness of breath, paroxysmal nocturnal dyspnea, orthopnea nor chest pain.. Tolerated out of bed yesterday but reports only inside the room. She did not try to go around on the hallway. Denies dizziness or lightheadedness. No nausea or vomiting, no abdominal pain. Physical Exam Vital Signs: Temp Pulse Resp BP Pulse Ox 97.5 F 82 18 123/55 L 94 03/06/17 07:45 03/06/17 07:45 03/06/17 07:45 03/06/17 07:45 03/06/17 07:45 Intake & Output 03/05/17 03/06/17 03/07/17 06:59 06:59 06:59 Intake Total 1100 3027 Output Total 630 3050 Balance 470 -23 Weight 70.3 kg 71.6 kg General appearance: PRESENT: no acute distress, cooperative Head exam: PRESENT: normocephalic Eye exam: PRESENT: EOMI Mouth exam: PRESENT: moist, neck supple Neck exam: ABSENT: JVD Respiratory exam: PRESENT: clear to auscultation ponce - Anteriorly, other - Air entry is fair. ABSENT: rhonchi, wheezes Cardiovascular exam: PRESENT: RRR. ABSENT: gallop GI/Abdominal exam: PRESENT: normal bowel sounds, soft. ABSENT: distended Extremities exam: PRESENT: other - Trace edema Neurological exam: PRESENT: alert, awake, oriented to situation Skin exam: PRESENT: dry, warm. ABSENT: cyanosis Results Laboratory Results: 03/06/17 03:59 03/06/17 03:59 03/06/17 03/06/17 03:59 03:59 WBC 20.8 H RBC 2.67 L Hgb 7.5 L Hct 23.6 L MCV 88 MCH 27.9 MCHC 31.6 L RDW 15.3 H Plt Count 484 H Sodium 140.5 Potassium 3.8 Chloride 107 Carbon Dioxide 19 L Anion Gap 15 BUN 22 H Creatinine 1.82 H Est GFR ( Amer) 33 L Est GFR (Non-Af Amer) 27 L Glucose 89 Calcium 9.2 Impressions: Chest X-Ray 03/02/17 12:06 IMPRESSION: Abnormal density is seen bilaterally worrisome for malignancy although pneumonia is also consideration. Chest CT is recommended for further evaluation. Shoulder X-Ray 03/02/17 12:06 IMPRESSION: 1. Old posttraumatic changes involving the proximal right humerus with severe degenerative changes involving the AC joint and the glenohumeral joint. 2. Abnormal density involving the right hilum extending into the right lung base worrisome for malignancy. Chest CT is recommended. Chest CT 03/02/17 15:46 IMPRESSION: Multiple large mass lesions are seen through the lung zuñiga, hilar and mediastinal regions. Findings concerning for malignancy. Scattered sclerotic changes are seen of multiple ribs. Abdomen/Pelvis CT 03/04/17 07:00 IMPRESSION: Pleural-based masses throughout the lung bases bilaterally. 1.5 x 1 cm soft tissue nodule ventral to the transverse colon no abnormal but nonspecific 2.6 x 2.3 cm right adrenal nodule Assessment & Plan - Diagnosis (1) Sepsis Qualifiers: Sepsis type: sepsis due to unspecified organism Qualified Code(s): A41.9 - Sepsis, unspecified organism Is this a current diagnosis for this admission?: Yes (2) UTI (urinary tract infection) Qualifiers: Urinary tract infection type: acute cystitis Hematuria presence: without hematuria Qualified Code(s): N30.00 - Acute cystitis without hematuria Is this a current diagnosis for this admission?: Yes (3) Acute renal failure Qualifiers: Acute renal failure type: unspecified Qualified Code(s): N17.9 - Acute kidney failure, unspecified Is this a current diagnosis for this admission?: Yes (4) Anemia Qualifiers: Anemia type: iron deficiency Is this a current diagnosis for this admission?: Yes (5) Hypomagnesemia Is this a current diagnosis for this admission?: Yes (6) Lung mass Is this a current diagnosis for this admission?: Yes (7) Asthma Qualifiers: Asthma complication type: uncomplicated Is this a current diagnosis for this admission?: Yes (8) Diabetes mellitus type 2 in obese Is this a current diagnosis for this admission?: Yes (9) Fibromyalgia Is this a current diagnosis for this admission?: Yes (10) Hyperlipidemia Qualifiers: Hyperlipidemia type: unspecified Qualified Code(s): E78.5 - Hyperlipidemia, unspecified Is this a current diagnosis for this admission?: Yes (11) Hypertension, essential Is this a current diagnosis for this admission?: Yes (12) Hypothyroidism (acquired) Is this a current diagnosis for this admission?: Yes (13) Rheumatoid arthritis Qualifiers: Rheumatoid arthritis location: unspecified site Rheumatoid factor presence: unspecified presence Qualified Code(s): M06.9 - Rheumatoid arthritis, unspecified Is this a current diagnosis for this admission?: Yes - Time Time Spent with patient: 25-34 minutes - Plan Summary Plan Summary: We are going to transfuse 2 units of packed RBC. Lasix in between transfusion. Begin Advair, and as needed Xopenex. Awaiting bronchoscopy. Patients creatinine did not improve after a few days of hydration, we will change IV fluid to KVO.
[2017-03-06] MEDS: ENOXAPARIN SODIUM INJ 30 MG/0.3 ML DISP.SYRIN SUBCUT SCH (09:55)
[2017-03-06] MEDS: CALCIUM CARBONATE 250 MG/VITAMIN D3 125 UNIT TABLET PO SCH ×2 (09:56→16:54)
[2017-03-06] MEDS: LANSOPRAZOLE 30 MG TAB.RAP.DR PO SCH (09:56)
[2017-03-06] MEDS: ATENOLOL 50 MG TABLET PO SCH ×2 (09:57→22:05)
[2017-03-06] MEDS: LEVOFLOXACIN 750 MG/D5W RTU 750 MG/150 ML RTUPB IV SCH (10:00)
[2017-03-06] MEDS: PREGABALIN 50 MG CAPSULE PO SCH ×2 (10:00→22:05)
[2017-03-06] MEDS: CHOLECALCIFEROL (D3) 1,000 UNIT TABLET PO SCH (10:02)
[2017-03-06] MEDS: LEVOTHYROXINE SODIUM 0.025 MG TABLET PO SCH (10:02)
[2017-03-06] MEDS: DOCUSATE SODIUM 100 MG CAPSULE PO SCH ×2 (10:09→18:54)
[2017-03-06] MEDS: FLUTICASONE/SALMETEROL DISKUS 250-50 MCG/DOSE IH SCH ×2 (10:30→22:05)
--- NOTE | 2017-03-06 10:42 | PDOC PROGRESS REPORT ---
Subjective Progress Note for:: 03/06/17 Subjective:: No acute events overnight Physical Exam Vital Signs: Temp Pulse Resp BP Pulse Ox 97.5 F 82 18 123/55 L 94 03/06/17 07:45 03/06/17 07:45 03/06/17 07:45 03/06/17 07:45 03/06/17 07:45 Intake & Output 03/05/17 03/06/17 03/07/17 06:59 06:59 06:59 Intake Total 1100 3027 Output Total 630 3050 Balance 470 -23 Weight 70.3 kg 71.6 kg General appearance: PRESENT: no acute distress, well-developed, well-nourished Head exam: PRESENT: atraumatic, normocephalic Eye exam: PRESENT: conjunctiva pink, EOMI, PERRLA. ABSENT: scleral icterus Ear exam: PRESENT: normal external ear exam Mouth exam: PRESENT: moist, tongue midline Neck exam: ABSENT: carotid bruit, JVD, lymphadenopathy, thyromegaly Respiratory exam: PRESENT: clear to auscultation ponce. ABSENT: rales, rhonchi, wheezes Cardiovascular exam: PRESENT: RRR. ABSENT: diastolic murmur, rubs, systolic murmur Pulses: PRESENT: normal dorsalis pedis pul Vascular exam: PRESENT: normal capillary refill GI/Abdominal exam: PRESENT: normal bowel sounds, soft. ABSENT: distended, guarding, mass, organolmegaly, rebound, tenderness Rectal exam: PRESENT: deferred Extremities exam: PRESENT: full ROM. ABSENT: calf tenderness, clubbing, pedal edema Neurological exam: PRESENT: alert, awake, oriented to person, oriented to place , oriented to time, oriented to situation, CN II-XII grossly intact. ABSENT: motor sensory deficit Psychiatric exam: PRESENT: appropriate affect, normal mood. ABSENT: homicidal ideation, suicidal ideation Skin exam: PRESENT: dry, intact, warm. ABSENT: cyanosis, rash Results Laboratory Results: 03/06/17 03:59 03/06/17 03:59 03/06/17 03/06/17 03:59 03:59 WBC 20.8 H RBC 2.67 L Hgb 7.5 L Hct 23.6 L MCV 88 MCH 27.9 MCHC 31.6 L RDW 15.3 H Plt Count 484 H Sodium 140.5 Potassium 3.8 Chloride 107 Carbon Dioxide 19 L Anion Gap 15 BUN 22 H Creatinine 1.82 H Est GFR ( Amer) 33 L Est GFR (Non-Af Amer) 27 L Glucose 89 Calcium 9.2 Impressions: Chest X-Ray 03/02/17 12:06 IMPRESSION: Abnormal density is seen bilaterally worrisome for malignancy although pneumonia is also consideration. Chest CT is recommended for further evaluation. Shoulder X-Ray 03/02/17 12:06 IMPRESSION: 1. Old posttraumatic changes involving the proximal right humerus with severe degenerative changes involving the AC joint and the glenohumeral joint. 2. Abnormal density involving the right hilum extending into the right lung base worrisome for malignancy. Chest CT is recommended. Chest CT 03/02/17 15:46 IMPRESSION: Multiple large mass lesions are seen through the lung zuñiga, hilar and mediastinal regions. Findings concerning for malignancy. Scattered sclerotic changes are seen of multiple ribs. Abdomen/Pelvis CT 03/04/17 07:00 IMPRESSION: Pleural-based masses throughout the lung bases bilaterally. 1.5 x 1 cm soft tissue nodule ventral to the transverse colon no abnormal but nonspecific 2.6 x 2.3 cm right adrenal nodule Assessment & Plan - Diagnosis (1) Lung mass Is this a current diagnosis for this admission?: YesPlan: Bronchoscopy planned tomorrow, patient is nothing by mouth after midnight, we will follow-up on the biopsy results. - Time Time Spent with patient: 15-24 minutes Critical Time spent with patient: 15-24 minutes
[2017-03-06] MEDS: ACETAMINOPHEN 325 MG TABLET PO PRN ×2 (13:03→18:53)
[2017-03-06] MEDS: ASPIRIN 81 MG TABLET, ENT COATED PO SCH (22:05)
[2017-03-06] MEDS: ATORVASTATIN CALCIUM 10 MG TABLET PO SCH (22:06)
[2017-03-06] MEDS: LORATADINE 10 MG TABLET PO SCH (22:06)
[2017-03-06] MEDS: MONTELUKAST SODIUM 10 MG TABLET PO SCH (22:06)
[2017-03-07 00:04] LABS: HEMATOCRIT 31.1 % (36.0-47.0); HGB HCT DIFFERENCE -1.1; MEAN CORPUSCULAR HEMOGLOBIN 28.2 pg (27.0-33.4); MEAN CORPUSCULAR HGB CONC 32.2 g/dL (32.0-36.0); MEAN CORPUSCULAR VOLUME 88 fl (80-97); RED BLOOD COUNT 3.56 10^6/uL (3.72-5.28); RED CELL DISTRIBUTION WIDTH 14.7 % (11.5-14.0); WHITE BLOOD COUNT 20.3 10^3/uL (4.0-10.5)
[2017-03-07 00:37] LABS: BAND NEUTROPHILS % (MANUAL) 7 % (3-5); BASOPHILS % (MANUAL) 0 % (0-2); EOSINOPHILS % (MANUAL) 1 % (0-6); LYMPHOCYTES % (MANUAL) 6 % (13-45); TOTAL CELLS COUNTED 100
[2017-03-07 00:41] LABS: ANISOCYTOSIS SLIGHT; POLYCHROMASIA 1+
[2017-03-07 00:42] LABS: POIKILOCYTOSIS SLIGHT; TARGET CELLS SLIGHT
[2017-03-07] MEDS: LANSOPRAZOLE 30 MG TAB.RAP.DR PO SCH (05:15)
[2017-03-07 06:06] LABS: HEMATOCRIT 32.7 % (36.0-47.0); HEMOGLOBIN 10.5 g/dL (12.0-15.5); HGB HCT DIFFERENCE -1.2; MEAN CORPUSCULAR HEMOGLOBIN 28.2 pg (27.0-33.4); MEAN CORPUSCULAR HGB CONC 32.2 g/dL (32.0-36.0); MEAN CORPUSCULAR VOLUME 87 fl (80-97); RED BLOOD COUNT 3.74 10^6/uL (3.72-5.28); RED CELL DISTRIBUTION WIDTH 14.9 % (11.5-14.0); WHITE BLOOD COUNT 21.5 10^3/uL (4.0-10.5)
[2017-03-07 06:25] LABS: ANION GAP 15 (5-19); BLOOD UREA NITROGEN 23 mg/dL (7-20); CALCIUM 9.5 mg/dL (8.4-10.2); CARBON DIOXIDE 19 mmol/L (22-30); CHLORIDE 106 mmol/L (98-107); CREATININE RESULT 2.09 mg/dL (0.52-1.25); GLUCOSE 138 mg/dL (75-110); SODIUM 139.7 mmol/L (137-145)
[2017-03-07] MEDS ORDERED: SUCCINYLCHOLINE CHLORIDE INJ 200 MG/10 ML VIAL ONE (07:47)
--- NOTE | 2017-03-07 09:57 | PDOC PROGRESS REPORT ---
Subjective Progress Note for:: 03/07/17 Subjective:: Patient remains to have generalized malaise and fatigue. No reported wheezing this time. Inhaler seems to be helping, cough still present but dry. No diarrhea, no nausea or vomiting, nor reported temperature spikes, no respiratory distress. Physical Exam Vital Signs: Temp Pulse Resp BP Pulse Ox 98.9 F 75 16 133/59 H 96 03/07/17 07:33 03/07/17 07:33 03/07/17 07:33 03/07/17 07:33 03/07/17 07:33 Intake & Output 03/06/17 03/07/17 03/08/17 06:59 06:59 06:59 Intake Total 3027 2240 Output Total 3050 3500 Balance -23 -1260 Weight 71.6 kg 71.6 kg General appearance: PRESENT: no acute distress, cooperative Head exam: PRESENT: normocephalic Eye exam: PRESENT: EOMI Mouth exam: PRESENT: moist, neck supple Neck exam: ABSENT: JVD Respiratory exam: PRESENT: clear to auscultation ponce - Anteriorly bilateral. ABSENT: rhonchi, wheezes Cardiovascular exam: PRESENT: RRR. ABSENT: gallop GI/Abdominal exam: PRESENT: soft. ABSENT: distended, tenderness Extremities exam: PRESENT: other - Trace pretibial edema Neurological exam: PRESENT: alert, awake, oriented to situation Skin exam: PRESENT: dry, warm. ABSENT: cyanosis Results Laboratory Results: 03/07/17 05:53 03/07/17 05:53 03/06/17 03/06/17 03/07/17 09:22 23:54 05:53 WBC 20.3 H 21.5 H RBC 3.56 L 3.74 Hgb 10.0 L D 10.5 L Hct 31.1 L 32.7 L MCV 88 87 MCH 28.2 28.2 MCHC 32.2 32.2 RDW 14.7 H 14.9 H Plt Count 414 458 H Seg Neutrophils % Not Reportable Lymphocytes % Not Reportable Monocytes % Not Reportable Eosinophils % Not Reportable Basophils % Not Reportable Absolute Neutrophils Not Reportable Absolute Lymphocytes Not Reportable Absolute Monocytes Not Reportable Absolute Eosinophils Not Reportable Absolute Basophils Not Reportable Sodium Potassium Chloride Carbon Dioxide Anion Gap BUN Creatinine Est GFR ( Amer) Est GFR (Non-Af Amer) Glucose Calcium Blood Type O POSITIVE Antibody Screen NEGATIVE 03/07/17 05:53 WBC RBC Hgb Hct MCV MCH MCHC RDW Plt Count Seg Neutrophils % Lymphocytes % Monocytes % Eosinophils % Basophils % Absolute Neutrophils Absolute Lymphocytes Absolute Monocytes Absolute Eosinophils Absolute Basophils Sodium 139.7 Potassium 4.0 Chloride 106 Carbon Dioxide 19 L Anion Gap 15 BUN 23 H Creatinine 2.09 H Est GFR ( Amer) 28 L Est GFR (Non-Af Amer) 23 L Glucose 138 H Calcium 9.5 Blood Type Antibody Screen Impressions: Chest X-Ray 03/02/17 12:06 IMPRESSION: Abnormal density is seen bilaterally worrisome for malignancy although pneumonia is also consideration. Chest CT is recommended for further evaluation. Shoulder X-Ray 03/02/17 12:06 IMPRESSION: 1. Old posttraumatic changes involving the proximal right humerus with severe degenerative changes involving the AC joint and the glenohumeral joint. 2. Abnormal density involving the right hilum extending into the right lung base worrisome for malignancy. Chest CT is recommended. Chest CT 03/02/17 15:46 IMPRESSION: Multiple large mass lesions are seen through the lung zuñiga, hilar and mediastinal regions. Findings concerning for malignancy. Scattered sclerotic changes are seen of multiple ribs. Abdomen/Pelvis CT 03/04/17 07:00 IMPRESSION: Pleural-based masses throughout the lung bases bilaterally. 1.5 x 1 cm soft tissue nodule ventral to the transverse colon no abnormal but nonspecific 2.6 x 2.3 cm right adrenal nodule Assessment & Plan - Diagnosis (1) Sepsis Qualifiers: Sepsis type: sepsis due to unspecified organism Qualified Code(s): A41.9 - Sepsis, unspecified organism Is this a current diagnosis for this admission?: Yes (2) UTI (urinary tract infection) Qualifiers: Urinary tract infection type: acute cystitis Hematuria presence: without hematuria Qualified Code(s): N30.00 - Acute cystitis without hematuria Is this a current diagnosis for this admission?: Yes (3) Acute renal failure Qualifiers: Acute renal failure type: unspecified Qualified Code(s): N17.9 - Acute kidney failure, unspecified Is this a current diagnosis for this admission?: Yes (4) Anemia Qualifiers: Anemia type: iron deficiency Is this a current diagnosis for this admission?: Yes (5) Hypomagnesemia Is this a current diagnosis for this admission?: Yes (6) Lung mass Is this a current diagnosis for this admission?: Yes (7) Asthma Qualifiers: Asthma complication type: uncomplicated Is this a current diagnosis for this admission?: Yes (8) Diabetes mellitus type 2 in obese Is this a current diagnosis for this admission?: Yes (9) Fibromyalgia Is this a current diagnosis for this admission?: Yes (10) Hyperlipidemia Qualifiers: Hyperlipidemia type: unspecified Qualified Code(s): E78.5 - Hyperlipidemia, unspecified Is this a current diagnosis for this admission?: Yes (11) Hypertension, essential Is this a current diagnosis for this admission?: Yes (12) Hypothyroidism (acquired) Is this a current diagnosis for this admission?: Yes (13) Rheumatoid arthritis Qualifiers: Rheumatoid arthritis location: unspecified site Rheumatoid factor presence: unspecified presence Qualified Code(s): M06.9 - Rheumatoid arthritis, unspecified Is this a current diagnosis for this admission?: Yes - Time Time Spent with patient: 25-34 minutes - Plan Summary Plan Summary: Patient's creatinine beginning to trend up again. We are going to increase intravenous fluids. Her WBC likewise started to trend up. We will put back the patient on Invanz and discontinue Levaquin. Patient is for bronchoscopy today. There is no definite spike in temperature. Patient may have underlying malignancy, probably contributing to the elevated WBC.
[2017-03-07] MEDS ORDERED: ERTAPENEM SODIUM INJ 1 GM VIAL IV SCH (10:00)
[2017-03-07] MEDS: PREGABALIN 50 MG CAPSULE PO SCH ×2 (10:48→21:36)
[2017-03-07] MEDS: LEVOTHYROXINE SODIUM 0.025 MG TABLET PO SCH (10:48)
[2017-03-07] MEDS: FLUTICASONE/SALMETEROL DISKUS 250-50 MCG/DOSE IH SCH ×2 (10:48→21:36)
[2017-03-07] MEDS: ATENOLOL 50 MG TABLET PO SCH ×2 (10:48→21:36)
[2017-03-07] MEDS: NORMAL SALINE 1000 ML 1,000 ML IV PRN (10:52)
[2017-03-07] MEDS: DOCUSATE SODIUM 100 MG CAPSULE PO SCH ×2 (10:52→19:34)
[2017-03-07] MEDS: CALCIUM CARBONATE 250 MG/VITAMIN D3 125 UNIT TABLET PO SCH ×2 (10:52→19:34)
[2017-03-07] MEDS: ENOXAPARIN SODIUM INJ 30 MG/0.3 ML DISP.SYRIN SUBCUT SCH (10:52)
[2017-03-07] MEDS: LEVALBUTEROL HCL NEB 1.25 MG/3 ML AMPUL NEB PRN ×2 (13:04→17:24)
[2017-03-07] MEDS ORDERED: LIDOCAINE 2% INJ (20 MG/ML) 20 ML MDV ONE (13:27)
[2017-03-07] MEDS ORDERED: EPINEPHRINE INJ 1 MG/10 ML DISP.SYRIN ONE (13:27)
[2017-03-07] MEDS ORDERED: MIDAZOLAM 2 MG/2 ML INJ ONE (13:46)
[2017-03-07] MEDS ORDERED: FENTANYL CITRATE INJ/PF 100 MCG/2 ML AMPUL ONE ×2 (13:46)
[2017-03-07] MEDS ORDERED: DEXAMETHASONE SOD PHOSPHATE INJ 4 MG/1 ML VIAL ONE (13:46)
[2017-03-07] MEDS ORDERED: ONDANSETRON HCL INJ/PF 4 MG/2 ML SDV ONE (13:47)
[2017-03-07] MEDS ORDERED: PROPOFOL INJ 200 MG/20 ML VIAL IV ONE (13:47)
[2017-03-07] MEDS ORDERED: PROMETHAZINE HCL INJ 25 MG/1 ML VIAL IV PRN (15:23)
[2017-03-07] MEDS ORDERED: FENTANYL CITRATE INJ/PF 100 MCG/2 ML AMPUL IV PRN ×3 (15:23)
[2017-03-07] MEDS ORDERED: DIPHENHYDRAMINE HCL 50 MG/ML VIAL IV PRN (15:23)
[2017-03-07 16:26] LABS: FLUID APPEARANCE HAZY; FLUID TYPE BRONCHIAL WASH
[2017-03-07 16:27] LABS: FLUID RBC AVERAGE 233.5; FLUID RBC DILUENT USED NONE USED; FLUID RBC DILUTION FACTOR 1; FLUID RBC SIDE 1 241; FLUID RBC SIDE 2 226; TOTAL RBC SQUARES COUNTED FLD 75
[2017-03-07] MEDS: CHOLECALCIFEROL (D3) 1,000 UNIT TABLET PO SCH (18:55)
[2017-03-07] MEDS: ASPIRIN 81 MG TABLET, ENT COATED PO SCH (21:35)
[2017-03-07] MEDS: LORATADINE 10 MG TABLET PO SCH (21:36)
[2017-03-07] MEDS: ATORVASTATIN CALCIUM 10 MG TABLET PO SCH (21:36)
[2017-03-07] MEDS: MONTELUKAST SODIUM 10 MG TABLET PO SCH (21:36)
[2017-03-07] MEDS: ERTAPENEM SODIUM 0.5 GM in NORMAL SALINE 50 ML IV SCH (21:37)
[2017-03-08] MEDS: LANSOPRAZOLE 30 MG TAB.RAP.DR PO SCH (05:18)
[2017-03-08 05:36] LABS: HEMATOCRIT 29.5 % (36.0-47.0); HEMOGLOBIN 9.5 g/dL (12.0-15.5); MEAN CORPUSCULAR HEMOGLOBIN 28.4 pg (27.0-33.4); MEAN CORPUSCULAR HGB CONC 32.3 g/dL (32.0-36.0); MEAN CORPUSCULAR VOLUME 88 fl (80-97); RED BLOOD COUNT 3.36 10^6/uL (3.72-5.28); RED CELL DISTRIBUTION WIDTH 15.3 % (11.5-14.0); WHITE BLOOD COUNT 13.6 10^3/uL (4.0-10.5)
[2017-03-08 06:04] LABS: ANION GAP 16 (5-19); BLOOD UREA NITROGEN 31 mg/dL (7-20); CALCIUM 8.8 mg/dL (8.4-10.2); CARBON DIOXIDE 18 mmol/L (22-30); CHLORIDE 110 mmol/L (98-107); CREATININE RESULT 2.33 mg/dL (0.52-1.25); GLUCOSE 141 mg/dL (75-110); SODIUM 144.1 mmol/L (137-145)
[2017-03-08 06:07] LABS: POTASSIUM 3.9 mmol/L (3.6-5.0)
[2017-03-08] MEDS: NORMAL SALINE 1000 ML 1,000 ML IV PRN ×2 (08:05→15:11)
[2017-03-08] MEDS: ATENOLOL 50 MG TABLET PO SCH ×2 (09:14→21:30)
[2017-03-08] MEDS: ENOXAPARIN SODIUM INJ 30 MG/0.3 ML DISP.SYRIN SUBCUT SCH (09:19)
[2017-03-08] MEDS: PREGABALIN 50 MG CAPSULE PO SCH ×2 (09:20→21:30)
[2017-03-08] MEDS: DOCUSATE SODIUM 100 MG CAPSULE PO SCH ×2 (09:20→17:35)
[2017-03-08] MEDS: CHOLECALCIFEROL (D3) 1,000 UNIT TABLET PO SCH (09:21)
[2017-03-08] MEDS: FLUTICASONE/SALMETEROL DISKUS 250-50 MCG/DOSE IH SCH ×2 (09:24→21:30)
[2017-03-08] MEDS: CALCIUM CARBONATE 250 MG/VITAMIN D3 125 UNIT TABLET PO SCH ×2 (09:28→17:30)
[2017-03-08] MEDS: LEVOTHYROXINE SODIUM 0.025 MG TABLET PO SCH (10:38)
[2017-03-08] MEDS: ERTAPENEM SODIUM 0.5 GM in NORMAL SALINE 50 ML IV SCH (12:02)
--- NOTE | 2017-03-08 15:11 | PDOC PROGRESS REPORT ---
Subjective Progress Note for:: 03/08/17 Subjective:: The patient reports having some cough. Physical Exam Vital Signs: Temp Pulse Resp BP Pulse Ox 97.6 F 73 18 119/51 L 97 03/08/17 11:19 03/08/17 11:19 03/08/17 11:19 03/08/17 11:19 03/08/17 11:19 Intake & Output 03/07/17 03/08/17 03/09/17 06:59 06:59 06:59 Intake Total 2240 5362 Output Total 3500 1615 Balance -1260 3747 Weight 71.6 kg 72.8 kg General appearance: PRESENT: no acute distress Eye exam: PRESENT: conjunctiva pink. ABSENT: scleral icterus Mouth exam: PRESENT: moist, tongue midline Neck exam: ABSENT: JVD Respiratory exam: PRESENT: rhonchi - Coarse rhonchi bilaterally.. ABSENT: rales , wheezes Cardiovascular exam: PRESENT: RRR. ABSENT: diastolic murmur, rubs, systolic murmur GI/Abdominal exam: PRESENT: normal bowel sounds, soft. ABSENT: distended, guarding, mass, organolmegaly, rebound, tenderness Extremities exam: ABSENT: calf tenderness, clubbing, pedal edema Neurological exam: PRESENT: alert, awake, oriented to person, oriented to place , oriented to time, oriented to situation, CN II-XII grossly intact. ABSENT: motor sensory deficit Psychiatric exam: PRESENT: appropriate affect Skin exam: PRESENT: dry, intact, warm. ABSENT: cyanosis, rash Results Laboratory Results: 03/08/17 04:26 03/08/17 04:26 03/07/17 03/08/17 03/08/17 14:09 04:26 04:26 WBC 13.6 H RBC 3.36 L Hgb 9.5 L Hct 29.5 L MCV 88 MCH 28.4 MCHC 32.3 RDW 15.3 H Plt Count 410 Sodium 144.1 Potassium 3.9 Chloride 110 H Carbon Dioxide 18 L Anion Gap 16 BUN 31 H Creatinine 2.33 H Est GFR ( Amer) 24 L Est GFR (Non-Af Amer) 20 L Glucose 141 H Calcium 8.8 Fluid Type BRONCHIAL WASH Fluid Source LUNG Fluid Color STRAW Fluid Appearance HAZY Fluid Viscosity LIQUID Fluid WBC 116 Fluid RBC 778 Impressions: Shoulder X-Ray 03/02/17 12:06 IMPRESSION: 1. Old posttraumatic changes involving the proximal right humerus with severe degenerative changes involving the AC joint and the glenohumeral joint. 2. Abnormal density involving the right hilum extending into the right lung base worrisome for malignancy. Chest CT is recommended. Chest CT 03/02/17 15:46 IMPRESSION: Multiple large mass lesions are seen through the lung zuñiga, hilar and mediastinal regions. Findings concerning for malignancy. Scattered sclerotic changes are seen of multiple ribs. Abdomen/Pelvis CT 03/04/17 07:00 IMPRESSION: Pleural-based masses throughout the lung bases bilaterally. 1.5 x 1 cm soft tissue nodule ventral to the transverse colon no abnormal but nonspecific 2.6 x 2.3 cm right adrenal nodule Chest X-Ray 03/07/17 00:00 IMPRESSION: Intra procedural imaging and fluoro Fluoroscopy 03/07/17 00:00 IMPRESSION: Intra procedural imaging and fluoro Assessment & Plan - Diagnosis (1) Sepsis Qualifiers: Sepsis type: sepsis due to unspecified organism Qualified Code(s): A41.9 - Sepsis, unspecified organism Is this a current diagnosis for this admission?: YesPlan: The patient is growing Escherichia coli from a urine infection. We'll continue with the ertapenem for continued coverage for possible pulmonary sources. (2) UTI (urinary tract infection) Qualifiers: Urinary tract infection type: acute cystitis Hematuria presence: without hematuria Qualified Code(s): N30.00 - Acute cystitis without hematuria Is this a current diagnosis for this admission?: YesPlan: Patient is growing Escherichia coli. She currently is on ertapenem. (3) Acute renal failure Qualifiers: Acute renal failure type: unspecified Qualified Code(s): N17.9 - Acute kidney failure, unspecified Is this a current diagnosis for this admission?: YesPlan: The patient's creatinine has increased and we will increase the IV fluids. (4) Lung mass Is this a current diagnosis for this admission?: YesPlan: Patient had bronchoscopy and biopsy done yesterday. (5) Anemia Qualifiers: Anemia type: iron deficiency Is this a current diagnosis for this admission?: YesPlan: Stable. (6) Asthma Qualifiers: Asthma complication type: uncomplicated Is this a current diagnosis for this admission?: YesPlan: Continue with nebulizers as needed. (7) Diabetes mellitus type 2 in obese Is this a current diagnosis for this admission?: YesPlan: Continue with sliding scale insulin. (8) Fibromyalgia Is this a current diagnosis for this admission?: Yes (9) Hyperlipidemia Qualifiers: Hyperlipidemia type: unspecified Qualified Code(s): E78.5 - Hyperlipidemia, unspecified Is this a current diagnosis for this admission?: Yes (10) Hypertension, essential Is this a current diagnosis for this admission?: YesPlan: Blood pressure is under good control. (11) Hypomagnesemia Is this a current diagnosis for this admission?: YesPlan: Resolved. (12) Hypothyroidism (acquired) Is this a current diagnosis for this admission?: YesPlan: Continue with Synthroid. (13) Rheumatoid arthritis Qualifiers: Rheumatoid arthritis location: unspecified site Rheumatoid factor presence: unspecified presence Qualified Code(s): M06.9 - Rheumatoid arthritis, unspecified Is this a current diagnosis for this admission?: Yes - Time Time Spent with patient: 25-34 minutes - Plan Summary Plan Summary: Patient has continued hospitalization for IV antibiotics and IV fluids.
[2017-03-08] MEDS: ATORVASTATIN CALCIUM 10 MG TABLET PO SCH (21:30)
[2017-03-08] MEDS: ASPIRIN 81 MG TABLET, ENT COATED PO SCH (21:30)
[2017-03-08] MEDS: MONTELUKAST SODIUM 10 MG TABLET PO SCH (21:30)
[2017-03-08] MEDS: LORATADINE 10 MG TABLET PO SCH (21:30)
[2017-03-08] MEDS: ACETAMINOPHEN 325 MG TABLET PO PRN (23:55)
[2017-03-09] MEDS: LEVALBUTEROL HCL NEB 1.25 MG/3 ML AMPUL NEB PRN (01:15)
[2017-03-09] MEDS: LANSOPRAZOLE 30 MG TAB.RAP.DR PO SCH (05:02)
[2017-03-09 05:18] LABS: PARTIAL THROMBOPLASTIN TIME 31.2 SEC (23.5-35.8); PROTHROMBIN TIME 15.1 SEC (11.4-15.4)
[2017-03-09 05:28] LABS: ANION GAP 13 (5-19); BLOOD UREA NITROGEN 37 mg/dL (7-20); CALCIUM 9.4 mg/dL (8.4-10.2); CARBON DIOXIDE 20 mmol/L (22-30); CHLORIDE 116 mmol/L (98-107); CREATININE RESULT 2.35 mg/dL (0.52-1.25); GLUCOSE 132 mg/dL (75-110); MAGNESIUM 1.5 mg/dL (1.6-2.3); POTASSIUM 3.3 mmol/L (3.6-5.0); SODIUM 148.8 mmol/L (137-145)
[2017-03-09 05:51] LABS: HEMATOCRIT 33.2 % (36.0-47.0); HEMOGLOBIN 10.5 g/dL (12.0-15.5); HGB HCT DIFFERENCE -1.7; MEAN CORPUSCULAR HEMOGLOBIN 28.3 pg (27.0-33.4); MEAN CORPUSCULAR HGB CONC 31.7 g/dL (32.0-36.0); MEAN CORPUSCULAR VOLUME 89 fl (80-97); RED BLOOD COUNT 3.72 10^6/uL (3.72-5.28); RED CELL DISTRIBUTION WIDTH 15.4 % (11.5-14.0); WHITE BLOOD COUNT 17.2 10^3/uL (4.0-10.5)
[2017-03-09 05:57] LABS: BASOPHILS % (MANUAL) 0 % (0-2); EOSINOPHILS % (MANUAL) 1 % (0-6); LYMPHOCYTES % (MANUAL) 4 % (13-45); TOTAL CELLS COUNTED 100
[2017-03-09 05:59] LABS: ANISOCYTOSIS SLIGHT; OVALOCYTES SLIGHT; POIKILOCYTOSIS SLIGHT; SCHISTOCYTES SLIGHT; TEAR DROP CELLS SLIGHT; TOXIC GRANULATION SLIGHT; TOXIC VACUOLATION PRESENT
[2017-03-09] MEDS: ENOXAPARIN SODIUM INJ 30 MG/0.3 ML DISP.SYRIN SUBCUT SCH (07:14)
--- NOTE | 2017-03-09 08:00 | PDOC PROGRESS REPORT ---
Subjective Progress Note for:: 03/08/17 Subjective:: Feeling better. Physical Exam Vital Signs: Temp Pulse Resp BP Pulse Ox 98.2 F 65 19 131/61 H 94 03/09/17 00:00 03/09/17 07:00 03/09/17 04:03 03/09/17 04:03 03/09/17 04:03 Intake & Output 03/08/17 03/09/17 03/10/17 06:59 06:59 06:59 Intake Total 5362 4586 Output Total 1612 1520 Balance 3747 3066 Weight 72.8 kg 73.5 kg General appearance: PRESENT: no acute distress Head exam: PRESENT: atraumatic Eye exam: PRESENT: conjunctiva pale Ear exam: PRESENT: normal external ear exam Respiratory exam: PRESENT: clear to auscultation ponce Cardiovascular exam: PRESENT: RRR Neurological exam: PRESENT: alert, altered, awake, oriented to person, oriented to place, oriented to time, CN II-XII grossly intact Psychiatric exam: PRESENT: appropriate affect Results Laboratory Results: 03/09/17 05:00 03/09/17 05:00 03/09/17 03/09/17 05:00 05:00 WBC 17.2 H RBC 3.72 Hgb 10.5 L Hct 33.2 L MCV 89 MCH 28.3 MCHC 31.7 L RDW 15.4 H Plt Count 282 Seg Neutrophils % Not Reportable Lymphocytes % Not Reportable Monocytes % Not Reportable Eosinophils % Not Reportable Basophils % Not Reportable Absolute Neutrophils Not Reportable Absolute Lymphocytes Not Reportable Absolute Monocytes Not Reportable Absolute Eosinophils Not Reportable Absolute Basophils Not Reportable Sodium 148.8 H Potassium 3.3 L Chloride 116 H Carbon Dioxide 20 L Anion Gap 13 BUN 37 H Creatinine 2.35 H Est GFR ( Amer) 24 L Est GFR (Non-Af Amer) 20 L Glucose 132 H Calcium 9.4 Magnesium 1.5 L 03/07/17 14:09 Bronchial Washings Gram Stain - Final 03/07/17 14:09 Bronchial Washings Bronchial Washings Culture - Final NO GROWTH 2 DAYS Impressions: Shoulder X-Ray 03/02/17 12:06 IMPRESSION: 1. Old posttraumatic changes involving the proximal right humerus with severe degenerative changes involving the AC joint and the glenohumeral joint. 2. Abnormal density involving the right hilum extending into the right lung base worrisome for malignancy. Chest CT is recommended. Chest CT 03/02/17 15:46 IMPRESSION: Multiple large mass lesions are seen through the lung zuñiga, hilar and mediastinal regions. Findings concerning for malignancy. Scattered sclerotic changes are seen of multiple ribs. Abdomen/Pelvis CT 03/04/17 07:00 IMPRESSION: Pleural-based masses throughout the lung bases bilaterally. 1.5 x 1 cm soft tissue nodule ventral to the transverse colon no abnormal but nonspecific 2.6 x 2.3 cm right adrenal nodule Chest X-Ray 03/07/17 00:00 IMPRESSION: Intra procedural imaging and fluoro Fluoroscopy 03/07/17 00:00 IMPRESSION: Intra procedural imaging and fluoro Assessment & Plan - Diagnosis (1) Acute renal failure Qualifiers: Acute renal failure type: unspecified Qualified Code(s): N17.9 - Acute kidney failure, unspecified Is this a current diagnosis for this admission?: Yes (2) Diabetes mellitus type 2 in obese Is this a current diagnosis for this admission?: Yes (3) Generalized weakness Is this a current diagnosis for this admission?: Yes (4) Anemia Qualifiers: Anemia type: iron deficiency Is this a current diagnosis for this admission?: YesPlan: Improved and recently treated (5) Lung mass Is this a current diagnosis for this admission?: YesPlan: Biopsy per bronchoscopy was negative so have ordered a CT guided biopsy - Time Time Spent with patient: 25-34 minutes Critical Time spent with patient: 15-24 minutes
[2017-03-09] MEDS ORDERED: MIDAZOLAM 2 MG/2 ML INJ ONE (09:37)
[2017-03-09] MEDS ORDERED: FENTANYL CITRATE INJ/PF 100 MCG/2 ML AMPUL ONE (09:38)
--- NOTE | 2017-03-09 10:49 | PDOC PROGRESS REPORT ---
Subjective Progress Note for:: 03/09/17 Subjective:: Feeling better and going down to radiology department for a CT guided biopsy. Physical Exam Vital Signs: Temp Pulse Resp BP Pulse Ox 98.3 F 73 22 H 143/65 H 97 03/09/17 08:29 03/09/17 08:29 03/09/17 08:29 03/09/17 08:29 03/09/17 08:29 Intake & Output 03/08/17 03/09/17 03/10/17 06:59 06:59 06:59 Intake Total 5362 4586 Output Total 1615 1520 Balance 3747 3066 Weight 72.8 kg 73.5 kg General appearance: PRESENT: no acute distress Head exam: PRESENT: atraumatic, normocephalic Eye exam: PRESENT: EOMI, PERRLA Ear exam: PRESENT: normal external ear exam Respiratory exam: PRESENT: clear to auscultation ponce Cardiovascular exam: PRESENT: RRR GI/Abdominal exam: PRESENT: soft Neurological exam: PRESENT: alert, awake Psychiatric exam: PRESENT: appropriate affect Results Laboratory Results: 03/09/17 05:00 03/09/17 05:00 03/09/17 03/09/17 05:00 05:00 WBC 17.2 H RBC 3.72 Hgb 10.5 L Hct 33.2 L MCV 89 MCH 28.3 MCHC 31.7 L RDW 15.4 H Plt Count 282 Seg Neutrophils % Not Reportable Lymphocytes % Not Reportable Monocytes % Not Reportable Eosinophils % Not Reportable Basophils % Not Reportable Absolute Neutrophils Not Reportable Absolute Lymphocytes Not Reportable Absolute Monocytes Not Reportable Absolute Eosinophils Not Reportable Absolute Basophils Not Reportable Sodium 148.8 H Potassium 3.3 L Chloride 116 H Carbon Dioxide 20 L Anion Gap 13 BUN 37 H Creatinine 2.35 H Est GFR ( Amer) 24 L Est GFR (Non-Af Amer) 20 L Glucose 132 H Calcium 9.4 Magnesium 1.5 L 03/07/17 14:09 Bronchial Washings Gram Stain - Final 03/07/17 14:09 Bronchial Washings Bronchial Washings Culture - Final NO GROWTH 2 DAYS Impressions: Shoulder X-Ray 03/02/17 12:06 IMPRESSION: 1. Old posttraumatic changes involving the proximal right humerus with severe degenerative changes involving the AC joint and the glenohumeral joint. 2. Abnormal density involving the right hilum extending into the right lung base worrisome for malignancy. Chest CT is recommended. Chest CT 03/02/17 15:46 IMPRESSION: Multiple large mass lesions are seen through the lung zuñiga, hilar and mediastinal regions. Findings concerning for malignancy. Scattered sclerotic changes are seen of multiple ribs. Abdomen/Pelvis CT 03/04/17 07:00 IMPRESSION: Pleural-based masses throughout the lung bases bilaterally. 1.5 x 1 cm soft tissue nodule ventral to the transverse colon no abnormal but nonspecific 2.6 x 2.3 cm right adrenal nodule Fluoroscopy 03/07/17 00:00 IMPRESSION: Intra procedural imaging and fluoro Chest X-Ray 03/09/17 00:00 IMPRESSION: No pneumothorax post biopsy. 2 mass lesions again identified on this chest x-ray in the right infrahilar region in the lateral costophrenic angle. Small right-sided pleural effusion. Guidance Needle Placement CT 03/09/17 00:00 IMPRESSION: CT-guided right the lower lobe mass/consolidation biopsy. Pathology pending. Lung Biopsy CT 03/09/17 14:08 IMPRESSION: CT-guided right the lower lobe mass/consolidation biopsy. Pathology pending. Assessment & Plan - Diagnosis (1) Acute renal failure Qualifiers: Acute renal failure type: unspecified Qualified Code(s): N17.9 - Acute kidney failure, unspecified Is this a current diagnosis for this admission?: Yes (2) Diabetes mellitus type 2 in obese Is this a current diagnosis for this admission?: Yes (3) Generalized weakness Is this a current diagnosis for this admission?: Yes (4) Anemia Qualifiers: Anemia type: iron deficiency Is this a current diagnosis for this admission?: YesPlan: Improved and recently treated, check her stool guaiacs (5) Lung mass Is this a current diagnosis for this admission?: YesPlan: Biopsy per bronchoscopy was negative so have ordered a CT guided biopsy and going down now.
[2017-03-09] MEDS: CALCIUM CARBONATE 250 MG/VITAMIN D3 125 UNIT TABLET PO SCH ×2 (11:30→17:00)
[2017-03-09] MEDS: LEVOTHYROXINE SODIUM 0.025 MG TABLET PO SCH (11:30)
[2017-03-09] MEDS: ERTAPENEM SODIUM 0.5 GM in NORMAL SALINE 50 ML IV SCH (11:30)
[2017-03-09] MEDS: PREGABALIN 50 MG CAPSULE PO SCH ×2 (11:31→22:06)
[2017-03-09] MEDS: CHOLECALCIFEROL (D3) 1,000 UNIT TABLET PO SCH (11:31)
[2017-03-09] MEDS: DOCUSATE SODIUM 100 MG CAPSULE PO SCH ×2 (11:31→17:07)
[2017-03-09] MEDS: FLUTICASONE/SALMETEROL DISKUS 250-50 MCG/DOSE IH SCH ×2 (11:32→22:05)
[2017-03-09] MEDS: ATENOLOL 50 MG TABLET PO SCH ×2 (11:33→22:05)
--- NOTE | 2017-03-09 14:37 | PDOC PROGRESS REPORT ---
Subjective Progress Note for:: 03/09/17 Subjective:: The patient had a lung biopsy done earlier today. Physical Exam Vital Signs: Temp Pulse Resp BP Pulse Ox 97.3 F 72 16 125/77 93 03/09/17 11:32 03/09/17 11:55 03/09/17 11:55 03/09/17 11:32 03/09/17 12:10 Intake & Output 03/08/17 03/09/17 03/10/17 06:59 06:59 06:59 Intake Total 5362 4586 Output Total 1615 1520 Balance 3747 3066 Weight 72.8 kg 73.5 kg General appearance: PRESENT: no acute distress Eye exam: PRESENT: conjunctiva pink. ABSENT: scleral icterus Ear exam: PRESENT: normal external ear exam Mouth exam: PRESENT: moist, tongue midline Neck exam: ABSENT: JVD Respiratory exam: PRESENT: rhonchi - Coarse rhonchi bilaterally.. ABSENT: rales , wheezes Cardiovascular exam: PRESENT: RRR. ABSENT: diastolic murmur, rubs, systolic murmur GI/Abdominal exam: PRESENT: normal bowel sounds, soft. ABSENT: distended, guarding, mass, organolmegaly, rebound, tenderness Extremities exam: ABSENT: calf tenderness, clubbing, pedal edema Neurological exam: PRESENT: alert, awake, oriented to person, oriented to place , oriented to time, oriented to situation, CN II-XII grossly intact. ABSENT: motor sensory deficit Psychiatric exam: PRESENT: flat affect Skin exam: PRESENT: dry, intact, warm. ABSENT: cyanosis, rash Results Laboratory Results: 03/09/17 05:00 03/09/17 05:00 03/09/17 03/09/17 05:00 05:00 WBC 17.2 H RBC 3.72 Hgb 10.5 L Hct 33.2 L MCV 89 MCH 28.3 MCHC 31.7 L RDW 15.4 H Plt Count 282 Seg Neutrophils % Not Reportable Lymphocytes % Not Reportable Monocytes % Not Reportable Eosinophils % Not Reportable Basophils % Not Reportable Absolute Neutrophils Not Reportable Absolute Lymphocytes Not Reportable Absolute Monocytes Not Reportable Absolute Eosinophils Not Reportable Absolute Basophils Not Reportable Sodium 148.8 H Potassium 3.3 L Chloride 116 H Carbon Dioxide 20 L Anion Gap 13 BUN 37 H Creatinine 2.35 H Est GFR ( Amer) 24 L Est GFR (Non-Af Amer) 20 L Glucose 132 H Calcium 9.4 Magnesium 1.5 L 03/07/17 14:09 Bronchial Washings Gram Stain - Final 03/07/17 14:09 Bronchial Washings Bronchial Washings Culture - Final NO GROWTH 2 DAYS Impressions: Shoulder X-Ray 03/02/17 12:06 IMPRESSION: 1. Old posttraumatic changes involving the proximal right humerus with severe degenerative changes involving the AC joint and the glenohumeral joint. 2. Abnormal density involving the right hilum extending into the right lung base worrisome for malignancy. Chest CT is recommended. Chest CT 03/02/17 15:46 IMPRESSION: Multiple large mass lesions are seen through the lung zuñiga, hilar and mediastinal regions. Findings concerning for malignancy. Scattered sclerotic changes are seen of multiple ribs. Abdomen/Pelvis CT 03/04/17 07:00 IMPRESSION: Pleural-based masses throughout the lung bases bilaterally. 1.5 x 1 cm soft tissue nodule ventral to the transverse colon no abnormal but nonspecific 2.6 x 2.3 cm right adrenal nodule Fluoroscopy 03/07/17 00:00 IMPRESSION: Intra procedural imaging and fluoro Chest X-Ray 03/09/17 00:00 IMPRESSION: No pneumothorax post biopsy. Mass lesions noted in the right infrahilar region and left costophrenic angle. Right pleural effusion. Guidance Needle Placement CT 03/09/17 00:00 IMPRESSION: CT-guided right the lower lobe mass/consolidation biopsy. Pathology pending. Lung Biopsy CT 03/09/17 14:08 IMPRESSION: CT-guided right the lower lobe mass/consolidation biopsy. Pathology pending. Assessment & Plan - Diagnosis (1) Sepsis Qualifiers: Sepsis type: sepsis due to unspecified organism Qualified Code(s): A41.9 - Sepsis, unspecified organism Is this a current diagnosis for this admission?: YesPlan: The patient is growing Escherichia coli from a urine infection. We'll continue with the ertapenem for continued coverage for possible pulmonary sources. (2) UTI (urinary tract infection) Qualifiers: Urinary tract infection type: acute cystitis Hematuria presence: without hematuria Qualified Code(s): N30.00 - Acute cystitis without hematuria Is this a current diagnosis for this admission?: YesPlan: Patient is growing Escherichia coli. She currently is on ertapenem. (3) Acute renal failure Qualifiers: Acute renal failure type: unspecified Qualified Code(s): N17.9 - Acute kidney failure, unspecified Is this a current diagnosis for this admission?: YesPlan: Stable (4) Lung mass Is this a current diagnosis for this admission?: YesPlan: Patient had bronchoscopy that did not show any malignancy. Patient had a CT- guided lung biopsy today. Will await pathology. (5) Anemia Qualifiers: Anemia type: iron deficiency Is this a current diagnosis for this admission?: YesPlan: Stable. (6) Asthma Qualifiers: Asthma complication type: uncomplicated Is this a current diagnosis for this admission?: YesPlan: Continue with nebulizers as needed. (7) Diabetes mellitus type 2 in obese Is this a current diagnosis for this admission?: YesPlan: Continue with sliding scale insulin. (8) Fibromyalgia Is this a current diagnosis for this admission?: Yes (9) Hyperlipidemia Qualifiers: Hyperlipidemia type: unspecified Qualified Code(s): E78.5 - Hyperlipidemia, unspecified Is this a current diagnosis for this admission?: Yes (10) Hypertension, essential Is this a current diagnosis for this admission?: YesPlan: Blood pressure is under good control. (11) Hypomagnesemia Is this a current diagnosis for this admission?: YesPlan: Resolved. (12) Hypothyroidism (acquired) Is this a current diagnosis for this admission?: YesPlan: Continue with Synthroid. (13) Rheumatoid arthritis Qualifiers: Rheumatoid arthritis location: unspecified site Rheumatoid factor presence: unspecified presence Qualified Code(s): M06.9 - Rheumatoid arthritis, unspecified Is this a current diagnosis for this admission?: Yes - Time Time Spent with patient: 25-34 minutes - Inpatient Certification Medical Necessity: Need Close Monitoring Due to Risk of Patient Decompensation - Plan Summary Plan Summary: If She continues to do well we will switch to oral antibiotics tomorrow.
[2017-03-09] MEDS: NORMAL SALINE 1000 ML 1,000 ML IV PRN (17:06)
[2017-03-09] MEDS ORDERED: (PENDING PHARMACY ID) (Alendronate Sodium [Fosamax 70 Mg Tablet] 70 MG) PO SCH (18:37)
[2017-03-09] MEDS: LORATADINE 10 MG TABLET PO SCH (22:05)
[2017-03-09] MEDS: ATORVASTATIN CALCIUM 10 MG TABLET PO SCH (22:05)
[2017-03-09] MEDS: BENZONATATE 100 MG CAPSULE PO PRN (22:05)
[2017-03-09] MEDS: ASPIRIN 81 MG TABLET, ENT COATED PO SCH (22:05)
[2017-03-09] MEDS: POTASSIUM CHLORIDE 10 MEQ TABLET.SA PO SCH (22:05)
[2017-03-09] MEDS: MONTELUKAST SODIUM 10 MG TABLET PO SCH (22:05)
[2017-03-10 05:14] LABS: HEMATOCRIT 30.8 % (36.0-47.0); HEMOGLOBIN 9.7 g/dL (12.0-15.5); HGB HCT DIFFERENCE -1.7; MEAN CORPUSCULAR HEMOGLOBIN 28.7 pg (27.0-33.4); MEAN CORPUSCULAR HGB CONC 31.6 g/dL (32.0-36.0); MEAN CORPUSCULAR VOLUME 91 fl (80-97); RED CELL DISTRIBUTION WIDTH 15.8 % (11.5-14.0); WHITE BLOOD COUNT 20.6 10^3/uL (4.0-10.5)
[2017-03-10 05:21] LABS: ANION GAP 12 (5-19); BLOOD UREA NITROGEN 34 mg/dL (7-20); CALCIUM 9.6 mg/dL (8.4-10.2); CARBON DIOXIDE 18 mmol/L (22-30); CHLORIDE 116 mmol/L (98-107); CREATININE RESULT 2.34 mg/dL (0.52-1.25); GLUCOSE 116 mg/dL (75-110); POTASSIUM 4.1 mmol/L (3.6-5.0); SODIUM 145.8 mmol/L (137-145)
[2017-03-10] MEDS: LANSOPRAZOLE 30 MG TAB.RAP.DR PO SCH (05:23)
[2017-03-10 05:57] LABS: BASOPHILS % (MANUAL) 0 % (0-2); EOSINOPHILS % (MANUAL) 0 % (0-6); LYMPHOCYTES % (MANUAL) 9 % (13-45); TOTAL CELLS COUNTED 100
[2017-03-10 05:59] LABS: ANISOCYTOSIS SLIGHT; OVALOCYTES SLIGHT; TOXIC GRANULATION SLIGHT
[2017-03-10 06:00] LABS: POLYCHROMASIA SLIGHT
[2017-03-10] MEDS: ENOXAPARIN SODIUM INJ 30 MG/0.3 ML DISP.SYRIN SUBCUT SCH (08:42)
[2017-03-10] MEDS: NORMAL SALINE 1000 ML 1,000 ML IV PRN (10:22)
[2017-03-10] MEDS: CALCIUM CARBONATE 250 MG/VITAMIN D3 125 UNIT TABLET PO SCH ×2 (11:08→18:06)
[2017-03-10] MEDS: PREGABALIN 50 MG CAPSULE PO SCH (11:08)
[2017-03-10] MEDS: ATENOLOL 50 MG TABLET PO SCH ×2 (11:08→22:39)
[2017-03-10] MEDS: FLUTICASONE/SALMETEROL DISKUS 250-50 MCG/DOSE IH SCH ×2 (11:08→22:39)
[2017-03-10] MEDS: CHOLECALCIFEROL (D3) 1,000 UNIT TABLET PO SCH (11:08)
[2017-03-10] MEDS: POTASSIUM CHLORIDE 10 MEQ TABLET.SA PO SCH ×2 (11:08→22:39)
[2017-03-10] MEDS: LEVOTHYROXINE SODIUM 0.025 MG TABLET PO SCH (11:08)
[2017-03-10] MEDS: DOCUSATE SODIUM 100 MG CAPSULE PO SCH ×2 (11:08→17:54)
[2017-03-10] MEDS ORDERED: HALOPERIDOL LACTATE INJ 5 MG/1 ML VIAL IM ONE (12:00)
--- NOTE | 2017-03-10 13:50 | PDOC PROGRESS REPORT ---
Subjective Progress Note for:: 03/10/17 Subjective:: At the time of my exam in the morning the patient was without complaints was somnolent. Later in the morning she became agitated with nursing staff. Physical Exam Vital Signs: Temp Pulse Resp BP Pulse Ox 97.5 F 67 16 120/58 L 87 L 03/10/17 10:06 03/10/17 12:35 03/10/17 12:35 03/10/17 10:06 03/10/17 12:35 Intake & Output 03/09/17 03/10/17 03/11/17 06:59 06:59 06:59 Intake Total 4586 2502 Output Total 1520 1100 Balance 3066 1402 Weight 73.5 kg 82.3 kg General appearance: PRESENT: no acute distress Eye exam: PRESENT: conjunctiva pink. ABSENT: scleral icterus Mouth exam: PRESENT: moist, tongue midline Neck exam: ABSENT: JVD Respiratory exam: PRESENT: wheezes - Scattered bilateral expiratory wheezes.. ABSENT: rales, rhonchi Cardiovascular exam: PRESENT: RRR. ABSENT: diastolic murmur, rubs, systolic murmur GI/Abdominal exam: PRESENT: normal bowel sounds, soft. ABSENT: distended, guarding, mass, organolmegaly, rebound, tenderness Extremities exam: ABSENT: calf tenderness, clubbing, pedal edema Neurological exam: PRESENT: awake, oriented to person, oriented to place, CN II- XII grossly intact. ABSENT: oriented to time, oriented to situation, motor sensory deficit Psychiatric exam: PRESENT: flat affect Skin exam: PRESENT: dry, intact, warm. ABSENT: cyanosis, rash Results Laboratory Results: 03/10/17 04:18 03/10/17 04:18 03/10/17 03/10/17 04:18 04:18 WBC 20.6 H RBC 3.40 L Hgb 9.7 L Hct 30.8 L MCV 91 MCH 28.7 MCHC 31.6 L RDW 15.8 H Plt Count 396 Seg Neutrophils % Not Reportable Lymphocytes % Not Reportable Monocytes % Not Reportable Eosinophils % Not Reportable Basophils % Not Reportable Absolute Neutrophils Not Reportable Absolute Lymphocytes Not Reportable Absolute Monocytes Not Reportable Absolute Eosinophils Not Reportable Absolute Basophils Not Reportable Sodium 145.8 H Potassium 4.1 Chloride 116 H Carbon Dioxide 18 L Anion Gap 12 BUN 34 H Creatinine 2.34 H Est GFR ( Amer) 24 L Est GFR (Non-Af Amer) 20 L Glucose 116 H Calcium 9.6 Impressions: Shoulder X-Ray 03/02/17 12:06 IMPRESSION: 1. Old posttraumatic changes involving the proximal right humerus with severe degenerative changes involving the AC joint and the glenohumeral joint. 2. Abnormal density involving the right hilum extending into the right lung base worrisome for malignancy. Chest CT is recommended. Chest CT 03/02/17 15:46 IMPRESSION: Multiple large mass lesions are seen through the lung zuñiga, hilar and mediastinal regions. Findings concerning for malignancy. Scattered sclerotic changes are seen of multiple ribs. Abdomen/Pelvis CT 03/04/17 07:00 IMPRESSION: Pleural-based masses throughout the lung bases bilaterally. 1.5 x 1 cm soft tissue nodule ventral to the transverse colon no abnormal but nonspecific 2.6 x 2.3 cm right adrenal nodule Fluoroscopy 03/07/17 00:00 IMPRESSION: Intra procedural imaging and fluoro Chest X-Ray 03/09/17 00:00 IMPRESSION: No pneumothorax post biopsy. Mass lesions noted in the right infrahilar region and left costophrenic angle. Right pleural effusion. Guidance Needle Placement CT 03/09/17 00:00 IMPRESSION: CT-guided right the lower lobe mass/consolidation biopsy. Pathology pending. Lung Biopsy CT 03/09/17 14:08 IMPRESSION: CT-guided right the lower lobe mass/consolidation biopsy. Pathology pending. Assessment & Plan - Diagnosis (1) Sepsis Qualifiers: Sepsis type: sepsis due to unspecified organism Qualified Code(s): A41.9 - Sepsis, unspecified organism Is this a current diagnosis for this admission?: YesPlan: The patient is growing Escherichia coli from a urine infection. We'll continue with the ertapenem for continued coverage for possible pulmonary sources. (2) UTI (urinary tract infection) Qualifiers: Urinary tract infection type: acute cystitis Hematuria presence: without hematuria Qualified Code(s): N30.00 - Acute cystitis without hematuria Is this a current diagnosis for this admission?: YesPlan: Patient is growing Escherichia coli. She currently is on ertapenem. (3) Acute renal failure Qualifiers: Acute renal failure type: unspecified Qualified Code(s): N17.9 - Acute kidney failure, unspecified Is this a current diagnosis for this admission?: YesPlan: Stable (4) Lung mass Is this a current diagnosis for this admission?: YesPlan: Patient had bronchoscopy that did not show any malignancy. Patient had a CT- guided lung biopsy. Will await pathology. (5) Anemia Qualifiers: Anemia type: iron deficiency Is this a current diagnosis for this admission?: YesPlan: Stable. (6) Asthma Qualifiers: Asthma complication type: uncomplicated Is this a current diagnosis for this admission?: YesPlan: Continue with nebulizers as needed. (7) Diabetes mellitus type 2 in obese Is this a current diagnosis for this admission?: YesPlan: Continue with sliding scale insulin. (8) Fibromyalgia Is this a current diagnosis for this admission?: Yes (9) Hyperlipidemia Qualifiers: Hyperlipidemia type: unspecified Qualified Code(s): E78.5 - Hyperlipidemia, unspecified Is this a current diagnosis for this admission?: Yes (10) Hypertension, essential Is this a current diagnosis for this admission?: YesPlan: Blood pressure is under good control. (11) Hypomagnesemia Is this a current diagnosis for this admission?: YesPlan: Resolved. (12) Hypothyroidism (acquired) Is this a current diagnosis for this admission?: YesPlan: Continue with Synthroid. (13) Rheumatoid arthritis Qualifiers: Rheumatoid arthritis location: unspecified site Rheumatoid factor presence: unspecified presence Qualified Code(s): M06.9 - Rheumatoid arthritis, unspecified Is this a current diagnosis for this admission?: Yes - Time Time Spent with patient: 25-34 minutes - Inpatient Certification Medical Necessity: Need Close Monitoring Due to Risk of Patient Decompensation - Plan Summary Plan Summary: Awaiting pathology results.
[2017-03-10] MEDS: ERTAPENEM SODIUM 0.5 GM in NORMAL SALINE 50 ML IV SCH (14:03)
[2017-03-10] MEDS ORDERED: HALOPERIDOL LACTATE INJ 5 MG/1 ML VIAL IM PRN (16:00)
[2017-03-10 21:58] LABS: ARTERIAL BLOOD BASE EXCESS -9.5 mmol/L
[2017-03-10] MEDS: MONTELUKAST SODIUM 10 MG TABLET PO SCH (22:39)
[2017-03-10] MEDS: ASPIRIN 81 MG TABLET, ENT COATED PO SCH (22:39)
[2017-03-10] MEDS: LORATADINE 10 MG TABLET PO SCH (22:39)
[2017-03-10] MEDS: ATORVASTATIN CALCIUM 10 MG TABLET PO SCH (22:39)
[2017-03-11 00:11] LABS: HEMATOCRIT 31.6 % (36.0-47.0); HEMOGLOBIN 9.7 g/dL (12.0-15.5); HGB HCT DIFFERENCE -2.5; MEAN CORPUSCULAR HGB CONC 30.6 g/dL (32.0-36.0); MEAN CORPUSCULAR VOLUME 92 fl (80-97); RED BLOOD COUNT 3.44 10^6/uL (3.72-5.28); WHITE BLOOD COUNT 18.9 10^3/uL (4.0-10.5)
[2017-03-11 00:16] LABS: ALANINE AMINOTRANSFERASE 21 U/L (9-52); ALBUMIN 2.3 g/dL (3.5-5.0); ALKALINE PHOSPHATASE 64 U/L (38-126); ANION GAP 12 (5-19); ASPARTATE AMINO TRANSFERASE 13 U/L (14-36); BILIRUBIN,DIRECT 0.2 mg/dL (0.0-0.4); BILIRUBIN,TOTAL 0.3 mg/dL (0.2-1.3); BLOOD UREA NITROGEN 36 mg/dL (7-20); CALCIUM 9.5 mg/dL (8.4-10.2); CARBON DIOXIDE 20 mmol/L (22-30); CHLORIDE 116 mmol/L (98-107); CREATININE RESULT 2.58 mg/dL (0.52-1.25); GLUCOSE 125 mg/dL (75-110); POTASSIUM 3.6 mmol/L (3.6-5.0); TOTAL PROTEIN 5.2 g/dL (6.3-8.2)
[2017-03-11 00:17] LABS: CREATINE KINASE < 20 U/L (30-135)
[2017-03-11 00:28] LABS: CREATINE KINASE MB 0.41 ng/mL (<4.55); TROPONIN I < 0.012 ng/mL
[2017-03-11 00:31] LABS: BAND NEUTROPHILS % (MANUAL) 3 % (3-5); BASOPHILS % (MANUAL) 0 % (0-2); EOSINOPHILS % (MANUAL) 1 % (0-6); LYMPHOCYTES % (MANUAL) 6 % (13-45); TOTAL CELLS COUNTED 100
[2017-03-11 00:32] LABS: ANISOCYTOSIS 1+
[2017-03-11 00:33] LABS: TOXIC GRANULATION SLIGHT
[2017-03-11] MEDS: LANSOPRAZOLE 30 MG TAB.RAP.DR PO SCH (05:21)
[2017-03-11 06:36] LABS: HEMATOCRIT 30.7 % (36.0-47.0); HEMOGLOBIN 9.3 g/dL (12.0-15.5); HGB HCT DIFFERENCE -2.8; MEAN CORPUSCULAR HEMOGLOBIN 27.8 pg (27.0-33.4); MEAN CORPUSCULAR HGB CONC 30.5 g/dL (32.0-36.0); MEAN CORPUSCULAR VOLUME 91 fl (80-97); RED BLOOD COUNT 3.36 10^6/uL (3.72-5.28); RED CELL DISTRIBUTION WIDTH 15.9 % (11.5-14.0); WHITE BLOOD COUNT 22.3 10^3/uL (4.0-10.5)
[2017-03-11 06:49] LABS: ANION GAP 11 (5-19); BLOOD UREA NITROGEN 37 mg/dL (7-20); CALCIUM 9.7 mg/dL (8.4-10.2); CARBON DIOXIDE 20 mmol/L (22-30); CHLORIDE 117 mmol/L (98-107); CREATININE RESULT 2.65 mg/dL (0.52-1.25); GLUCOSE 130 mg/dL (75-110); SODIUM 148.1 mmol/L (137-145)
[2017-03-11 06:51] LABS: POTASSIUM 3.5 mmol/L (3.6-5.0)
[2017-03-11 06:54] LABS: BAND NEUTROPHILS % (MANUAL) 5 % (3-5); BASOPHILS % (MANUAL) 0 % (0-2); EOSINOPHILS % (MANUAL) 0 % (0-6); LYMPHOCYTES % (MANUAL) 3 % (13-45); TOTAL CELLS COUNTED 100
[2017-03-11 06:55] LABS: ANISOCYTOSIS 1+; PLATELET CLUMPS PRESENT
[2017-03-11] MEDS: ENOXAPARIN SODIUM INJ 30 MG/0.3 ML DISP.SYRIN SUBCUT SCH (07:46)
--- NOTE | 2017-03-11 08:51 | PDOC PROGRESS REPORT ---
Subjective Progress Note for:: 03/10/17 Subjective:: Drowsy this am but reports poor sleep over night. Physical Exam Vital Signs: Temp Pulse Resp BP Pulse Ox 97.6 F 68 24 H 122/56 L 100 03/10/17 20:45 03/10/17 20:45 03/10/17 20:45 03/10/17 20:45 03/10/17 20:45 Intake & Output 03/09/17 03/10/17 03/11/17 06:59 06:59 06:59 Intake Total 4586 2502 1900 Output Total 1520 1100 Balance 3066 1402 1900 Weight 73.5 kg 82.3 kg General appearance: PRESENT: no acute distress Head exam: PRESENT: atraumatic, normocephalic Throat exam: PRESENT: post pharyngeal erythema Respiratory exam: PRESENT: clear to auscultation ponce, unlabored Cardiovascular exam: PRESENT: RRR GI/Abdominal exam: PRESENT: ascites Neurological exam: PRESENT: other - Sleepy Psychiatric exam: PRESENT: flat affect Results Laboratory Results: 03/10/17 04:18 03/10/17 04:18 03/10/17 03/10/17 03/10/17 04:18 04:18 21:32 WBC 20.6 H RBC 3.40 L Hgb 9.7 L Hct 30.8 L MCV 91 MCH 28.7 MCHC 31.6 L RDW 15.8 H Plt Count 396 Seg Neutrophils % Not Reportable Lymphocytes % Not Reportable Monocytes % Not Reportable Eosinophils % Not Reportable Basophils % Not Reportable Absolute Neutrophils Not Reportable Absolute Lymphocytes Not Reportable Absolute Monocytes Not Reportable Absolute Eosinophils Not Reportable Absolute Basophils Not Reportable Carbonic Acid 1.51 H HCO3/H2CO3 Ratio 12:1 ABG pH 7.19 L* ABG pCO2 50.1 H ABG pO2 99.8 ABG HCO3 18.7 L ABG O2 Saturation 96.0 ABG Base Excess -9.5 FiO2 32% Sodium 145.8 H Potassium 4.1 Chloride 116 H Carbon Dioxide 18 L Anion Gap 12 BUN 34 H Creatinine 2.34 H Est GFR ( Amer) 24 L Est GFR (Non-Af Amer) 20 L Glucose 116 H Calcium 9.6 Impressions: Shoulder X-Ray 03/02/17 12:06 IMPRESSION: 1. Old posttraumatic changes involving the proximal right humerus with severe degenerative changes involving the AC joint and the glenohumeral joint. 2. Abnormal density involving the right hilum extending into the right lung base worrisome for malignancy. Chest CT is recommended. Chest CT 03/02/17 15:46 IMPRESSION: Multiple large mass lesions are seen through the lung zuñiga, hilar and mediastinal regions. Findings concerning for malignancy. Scattered sclerotic changes are seen of multiple ribs. Abdomen/Pelvis CT 03/04/17 07:00 IMPRESSION: Pleural-based masses throughout the lung bases bilaterally. 1.5 x 1 cm soft tissue nodule ventral to the transverse colon no abnormal but nonspecific 2.6 x 2.3 cm right adrenal nodule Fluoroscopy 03/07/17 00:00 IMPRESSION: Intra procedural imaging and fluoro Chest X-Ray 03/09/17 00:00 IMPRESSION: No pneumothorax post biopsy. Mass lesions noted in the right infrahilar region and left costophrenic angle. Right pleural effusion. Guidance Needle Placement CT 03/09/17 00:00 IMPRESSION: CT-guided right the lower lobe mass/consolidation biopsy. Pathology pending. Lung Biopsy CT 03/09/17 14:08 IMPRESSION: CT-guided right the lower lobe mass/consolidation biopsy. Pathology pending. Assessment & Plan - Diagnosis (1) Acute renal failure Qualifiers: Acute renal failure type: unspecified Qualified Code(s): N17.9 - Acute kidney failure, unspecified Is this a current diagnosis for this admission?: Yes (2) Diabetes mellitus type 2 in obese Is this a current diagnosis for this admission?: Yes (3) Generalized weakness Is this a current diagnosis for this admission?: Yes (4) Anemia Qualifiers: Anemia type: iron deficiency Is this a current diagnosis for this admission?: YesPlan: follow up iron stores and check flow cytometry as well as FISH for BCR/abl (5) Lung mass Is this a current diagnosis for this admission?: YesPlan: Path with necrosis only so have asked Dr. Velarde to evaluate for other site to biopsy. - Time Time Spent with patient: 25-34 minutes Critical Time spent with patient: 15-24 minutes
--- NOTE | 2017-03-11 09:02 | PDOC PROGRESS REPORT ---
Subjective Progress Note for:: 03/11/17 Subjective:: Very drowsy again this morning and combative yesterday. Wheezing and third spacing Physical Exam Vital Signs: Temp Pulse Resp BP Pulse Ox 98.5 F 72 19 116/57 L 99 03/11/17 00:00 03/11/17 07:00 03/11/17 04:38 03/11/17 04:38 03/11/17 04:38 Intake & Output 03/10/17 03/11/17 03/12/17 06:59 06:59 06:59 Intake Total 2502 2400 Output Total 1100 400 Balance 1402 2000 Weight 82.3 kg 83.4 kg General appearance: PRESENT: mild distress Head exam: PRESENT: atraumatic, normocephalic Eye exam: PRESENT: PERRLA Respiratory exam: PRESENT: crackles, wheezes Cardiovascular exam: PRESENT: tachycardia Extremities exam: PRESENT: +1 edema Neurological exam: PRESENT: altered, CN II-XII grossly intact Results Laboratory Results: 03/11/17 05:56 03/11/17 05:56 03/10/17 03/10/17 03/10/17 21:32 23:47 23:47 WBC 18.9 H RBC 3.44 L Hgb 9.7 L Hct 31.6 L MCV 92 MCH 28.0 MCHC 30.6 L RDW 16.0 H Plt Count 361 Seg Neutrophils % Not Reportable Lymphocytes % Not Reportable Monocytes % Not Reportable Eosinophils % Not Reportable Basophils % Not Reportable Absolute Neutrophils Not Reportable Absolute Lymphocytes Not Reportable Absolute Monocytes Not Reportable Absolute Eosinophils Not Reportable Absolute Basophils Not Reportable Carbonic Acid 1.51 H HCO3/H2CO3 Ratio 12:1 ABG pH 7.19 L* ABG pCO2 50.1 H ABG pO2 99.8 ABG HCO3 18.7 L ABG O2 Saturation 96.0 ABG Base Excess -9.5 FiO2 32% Sodium 148.0 H Potassium 3.6 Chloride 116 H Carbon Dioxide 20 L Anion Gap 12 BUN 36 H Creatinine 2.58 H Est GFR ( Amer) 22 L Est GFR (Non-Af Amer) 18 L Glucose 125 H Calcium 9.5 Total Bilirubin 0.3 AST 13 L ALT 21 Alkaline Phosphatase 64 Total Protein 5.2 L Albumin 2.3 L 03/11/17 03/11/17 05:56 05:56 WBC 22.3 H RBC 3.36 L Hgb 9.3 L Hct 30.7 L MCV 91 MCH 27.8 MCHC 30.5 L RDW 15.9 H Plt Count 332 Seg Neutrophils % Not Reportable Lymphocytes % Not Reportable Monocytes % Not Reportable Eosinophils % Not Reportable Basophils % Not Reportable Absolute Neutrophils Not Reportable Absolute Lymphocytes Not Reportable Absolute Monocytes Not Reportable Absolute Eosinophils Not Reportable Absolute Basophils Not Reportable Carbonic Acid HCO3/H2CO3 Ratio ABG pH ABG pCO2 ABG pO2 ABG HCO3 ABG O2 Saturation ABG Base Excess FiO2 Sodium 148.1 H Potassium 3.5 L Chloride 117 H Carbon Dioxide 20 L Anion Gap 11 BUN 37 H Creatinine 2.65 H Est GFR ( Amer) 21 L Est GFR (Non-Af Amer) 17 L Glucose 130 H Calcium 9.7 Total Bilirubin AST ALT Alkaline Phosphatase Total Protein Albumin 03/07/17 14:09 Bronchial Washings AFB Smear Concentration - Final 03/07/17 14:09 Bronchial Washings Acid Fast Bacilli Smear - Final 03/10/17 03/10/17 23:47 23:47 Creatine Kinase < 20 L CK-MB (CK-2) 0.41 Troponin I < 0.012 Impressions: Shoulder X-Ray 03/02/17 12:06 IMPRESSION: 1. Old posttraumatic changes involving the proximal right humerus with severe degenerative changes involving the AC joint and the glenohumeral joint. 2. Abnormal density involving the right hilum extending into the right lung base worrisome for malignancy. Chest CT is recommended. Chest CT 03/02/17 15:46 IMPRESSION: Multiple large mass lesions are seen through the lung zuñiga, hilar and mediastinal regions. Findings concerning for malignancy. Scattered sclerotic changes are seen of multiple ribs. Abdomen/Pelvis CT 03/04/17 07:00 IMPRESSION: Pleural-based masses throughout the lung bases bilaterally. 1.5 x 1 cm soft tissue nodule ventral to the transverse colon no abnormal but nonspecific 2.6 x 2.3 cm right adrenal nodule Fluoroscopy 03/07/17 00:00 IMPRESSION: Intra procedural imaging and fluoro Chest X-Ray 03/09/17 00:00 IMPRESSION: No pneumothorax post biopsy. Mass lesions noted in the right infrahilar region and left costophrenic angle. Right pleural effusion. Guidance Needle Placement CT 03/09/17 00:00 IMPRESSION: CT-guided right the lower lobe mass/consolidation biopsy. Pathology pending. Lung Biopsy CT 03/09/17 14:08 IMPRESSION: CT-guided right the lower lobe mass/consolidation biopsy. Pathology pending. Assessment & Plan - Diagnosis (1) Acute renal failure Qualifiers: Acute renal failure type: unspecified Qualified Code(s): N17.9 - Acute kidney failure, unspecified Is this a current diagnosis for this admission?: YesPlan: Improved with fluids. (2) Diabetes mellitus type 2 in obese Is this a current diagnosis for this admission?: Yes (3) Generalized weakness Is this a current diagnosis for this admission?: Yes (4) Anemia Qualifiers: Anemia type: iron deficiency Is this a current diagnosis for this admission?: YesPlan: follow iron studies and flow cytometry, FISH (5) Lung mass Is this a current diagnosis for this admission?: YesPlan: Other biopsy is necrotic so will discuss with son whether to proceed with another attempt given her mental state. - Time Time Spent with patient: 25-34 minutes Critical Time spent with patient: 15-24 minutes Medications reviewed and adjusted accordingly: Yes
[2017-03-11] MEDS: POTASSIUM CHLORIDE 10 MEQ TABLET.SA PO SCH (09:22)
[2017-03-11] MEDS: FLUTICASONE/SALMETEROL DISKUS 250-50 MCG/DOSE IH SCH (09:22)
[2017-03-11] MEDS: DOCUSATE SODIUM 100 MG CAPSULE PO SCH ×2 (09:22→17:48)
[2017-03-11] MEDS: CHOLECALCIFEROL (D3) 1,000 UNIT TABLET PO SCH (09:22)
[2017-03-11] MEDS: CALCIUM CARBONATE 250 MG/VITAMIN D3 125 UNIT TABLET PO SCH ×2 (09:22→17:48)
[2017-03-11] MEDS: ATENOLOL 50 MG TABLET PO SCH (09:22)
--- NOTE | 2017-03-11 10:14 | PDOC PROGRESS REPORT ---
Subjective Progress Note for:: 03/11/17 Subjective:: Spoke with son and he is in agreement to transfer to [facility]. Her recent Flow cytometry in the office and FISH for BCR/abl were negative. Physical Exam Vital Signs: Temp Pulse Resp BP Pulse Ox 98.5 F 72 19 116/57 L 99 03/11/17 00:00 03/11/17 07:00 03/11/17 04:38 03/11/17 04:38 03/11/17 04:38 Intake & Output 03/10/17 03/11/17 03/12/17 06:59 06:59 06:59 Intake Total 2502 2400 Output Total 1100 400 Balance 1402 2000 Weight 82.3 kg 83.4 kg Results Laboratory Results: 03/11/17 05:56 03/11/17 05:56 03/10/17 03/10/17 03/10/17 21:32 23:47 23:47 WBC 18.9 H RBC 3.44 L Hgb 9.7 L Hct 31.6 L MCV 92 MCH 28.0 MCHC 30.6 L RDW 16.0 H Plt Count 361 Seg Neutrophils % Not Reportable Lymphocytes % Not Reportable Monocytes % Not Reportable Eosinophils % Not Reportable Basophils % Not Reportable Absolute Neutrophils Not Reportable Absolute Lymphocytes Not Reportable Absolute Monocytes Not Reportable Absolute Eosinophils Not Reportable Absolute Basophils Not Reportable Carbonic Acid 1.51 H HCO3/H2CO3 Ratio 12:1 ABG pH 7.19 L* ABG pCO2 50.1 H ABG pO2 99.8 ABG HCO3 18.7 L ABG O2 Saturation 96.0 ABG Base Excess -9.5 FiO2 32% Sodium 148.0 H Potassium 3.6 Chloride 116 H Carbon Dioxide 20 L Anion Gap 12 BUN 36 H Creatinine 2.58 H Est GFR ( Amer) 22 L Est GFR (Non-Af Amer) 18 L Glucose 125 H Calcium 9.5 Total Bilirubin 0.3 AST 13 L ALT 21 Alkaline Phosphatase 64 Total Protein 5.2 L Albumin 2.3 L 03/11/17 03/11/17 05:56 05:56 WBC 22.3 H RBC 3.36 L Hgb 9.3 L Hct 30.7 L MCV 91 MCH 27.8 MCHC 30.5 L RDW 15.9 H Plt Count 332 Seg Neutrophils % Not Reportable Lymphocytes % Not Reportable Monocytes % Not Reportable Eosinophils % Not Reportable Basophils % Not Reportable Absolute Neutrophils Not Reportable Absolute Lymphocytes Not Reportable Absolute Monocytes Not Reportable Absolute Eosinophils Not Reportable Absolute Basophils Not Reportable Carbonic Acid HCO3/H2CO3 Ratio ABG pH ABG pCO2 ABG pO2 ABG HCO3 ABG O2 Saturation ABG Base Excess FiO2 Sodium 148.1 H Potassium 3.5 L Chloride 117 H Carbon Dioxide 20 L Anion Gap 11 BUN 37 H Creatinine 2.65 H Est GFR ( Amer) 21 L Est GFR (Non-Af Amer) 17 L Glucose 130 H Calcium 9.7 Total Bilirubin AST ALT Alkaline Phosphatase Total Protein Albumin 03/07/17 14:09 Bronchial Washings AFB Smear Concentration - Final 03/07/17 14:09 Bronchial Washings Acid Fast Bacilli Smear - Final 03/10/17 03/10/17 23:47 23:47 Creatine Kinase < 20 L CK-MB (CK-2) 0.41 Troponin I < 0.012 Impressions: Shoulder X-Ray 03/02/17 12:06 IMPRESSION: 1. Old posttraumatic changes involving the proximal right humerus with severe degenerative changes involving the AC joint and the glenohumeral joint. 2. Abnormal density involving the right hilum extending into the right lung base worrisome for malignancy. Chest CT is recommended. Chest CT 03/02/17 15:46 IMPRESSION: Multiple large mass lesions are seen through the lung zuñiga, hilar and mediastinal regions. Findings concerning for malignancy. Scattered sclerotic changes are seen of multiple ribs. Abdomen/Pelvis CT 03/04/17 07:00 IMPRESSION: Pleural-based masses throughout the lung bases bilaterally. 1.5 x 1 cm soft tissue nodule ventral to the transverse colon no abnormal but nonspecific 2.6 x 2.3 cm right adrenal nodule Fluoroscopy 03/07/17 00:00 IMPRESSION: Intra procedural imaging and fluoro Chest X-Ray 03/09/17 00:00 IMPRESSION: No pneumothorax post biopsy. Mass lesions noted in the right infrahilar region and left costophrenic angle. Right pleural effusion. Guidance Needle Placement CT 03/09/17 00:00 IMPRESSION: CT-guided right the lower lobe mass/consolidation biopsy. Pathology pending. Lung Biopsy CT 03/09/17 14:08 IMPRESSION: CT-guided right the lower lobe mass/consolidation biopsy. Pathology pending. Assessment & Plan - Diagnosis (1) Acute renal failure Qualifiers: Acute renal failure type: unspecified Qualified Code(s): N17.9 - Acute kidney failure, unspecified Is this a current diagnosis for this admission?: Yes (2) Diabetes mellitus type 2 in obese Is this a current diagnosis for this admission?: Yes (3) Generalized weakness Is this a current diagnosis for this admission?: Yes (4) Anemia Qualifiers: Anemia type: iron deficiency Is this a current diagnosis for this admission?: Yes (5) Lung mass Is this a current diagnosis for this admission?: Yes (6) Leukocytosis Plan: Recent Flow cytometry and FISH for BCR/abl were negative in the office.
--- NOTE | 2017-03-11 10:17 | PDOC PROGRESS REPORT ---
Subjective Progress Note for:: 03/11/17 Subjective:: Patient was agitated last night and ABG showed her to be acidotic. She continues with confusion today. Physical Exam Vital Signs: Temp Pulse Resp BP Pulse Ox 98.5 F 72 19 116/57 L 99 03/11/17 00:00 03/11/17 07:00 03/11/17 04:38 03/11/17 04:38 03/11/17 04:38 Intake & Output 03/10/17 03/11/17 03/12/17 06:59 06:59 06:59 Intake Total 2502 2400 Output Total 1100 400 Balance 1402 2000 Weight 82.3 kg 83.4 kg General appearance: PRESENT: mild distress Eye exam: PRESENT: conjunctiva pink. ABSENT: scleral icterus Mouth exam: PRESENT: moist, tongue midline Neck exam: ABSENT: JVD Respiratory exam: PRESENT: wheezes - Bilateral expiratory wheezes. ABSENT: rales, rhonchi Cardiovascular exam: PRESENT: RRR. ABSENT: diastolic murmur, rubs, systolic murmur GI/Abdominal exam: PRESENT: normal bowel sounds, soft. ABSENT: distended, guarding, mass, organolmegaly, rebound, tenderness Extremities exam: ABSENT: calf tenderness, clubbing, pedal edema Neurological exam: PRESENT: altered, oriented to person, CN II-XII grossly intact. ABSENT: oriented to place, oriented to time, oriented to situation, motor sensory deficit Psychiatric exam: PRESENT: agitated Skin exam: PRESENT: dry, intact, warm. ABSENT: cyanosis, rash Results Laboratory Results: 03/11/17 05:56 03/11/17 05:56 03/10/17 03/10/17 03/10/17 21:32 23:47 23:47 WBC 18.9 H RBC 3.44 L Hgb 9.7 L Hct 31.6 L MCV 92 MCH 28.0 MCHC 30.6 L RDW 16.0 H Plt Count 361 Seg Neutrophils % Not Reportable Lymphocytes % Not Reportable Monocytes % Not Reportable Eosinophils % Not Reportable Basophils % Not Reportable Absolute Neutrophils Not Reportable Absolute Lymphocytes Not Reportable Absolute Monocytes Not Reportable Absolute Eosinophils Not Reportable Absolute Basophils Not Reportable Carbonic Acid 1.51 H HCO3/H2CO3 Ratio 12:1 ABG pH 7.19 L* ABG pCO2 50.1 H ABG pO2 99.8 ABG HCO3 18.7 L ABG O2 Saturation 96.0 ABG Base Excess -9.5 FiO2 32% Sodium 148.0 H Potassium 3.6 Chloride 116 H Carbon Dioxide 20 L Anion Gap 12 BUN 36 H Creatinine 2.58 H Est GFR ( Amer) 22 L Est GFR (Non-Af Amer) 18 L Glucose 125 H Calcium 9.5 Total Bilirubin 0.3 AST 13 L ALT 21 Alkaline Phosphatase 64 Total Protein 5.2 L Albumin 2.3 L 03/11/17 03/11/17 05:56 05:56 WBC 22.3 H RBC 3.36 L Hgb 9.3 L Hct 30.7 L MCV 91 MCH 27.8 MCHC 30.5 L RDW 15.9 H Plt Count 332 Seg Neutrophils % Not Reportable Lymphocytes % Not Reportable Monocytes % Not Reportable Eosinophils % Not Reportable Basophils % Not Reportable Absolute Neutrophils Not Reportable Absolute Lymphocytes Not Reportable Absolute Monocytes Not Reportable Absolute Eosinophils Not Reportable Absolute Basophils Not Reportable Carbonic Acid HCO3/H2CO3 Ratio ABG pH ABG pCO2 ABG pO2 ABG HCO3 ABG O2 Saturation ABG Base Excess FiO2 Sodium 148.1 H Potassium 3.5 L Chloride 117 H Carbon Dioxide 20 L Anion Gap 11 BUN 37 H Creatinine 2.65 H Est GFR ( Amer) 21 L Est GFR (Non-Af Amer) 17 L Glucose 130 H Calcium 9.7 Total Bilirubin AST ALT Alkaline Phosphatase Total Protein Albumin 03/07/17 14:09 Bronchial Washings AFB Smear Concentration - Final 03/07/17 14:09 Bronchial Washings Acid Fast Bacilli Smear - Final 03/10/17 03/10/17 23:47 23:47 Creatine Kinase < 20 L CK-MB (CK-2) 0.41 Troponin I < 0.012 Impressions: Shoulder X-Ray 03/02/17 12:06 IMPRESSION: 1. Old posttraumatic changes involving the proximal right humerus with severe degenerative changes involving the AC joint and the glenohumeral joint. 2. Abnormal density involving the right hilum extending into the right lung base worrisome for malignancy. Chest CT is recommended. Chest CT 03/02/17 15:46 IMPRESSION: Multiple large mass lesions are seen through the lung zuñiga, hilar and mediastinal regions. Findings concerning for malignancy. Scattered sclerotic changes are seen of multiple ribs. Abdomen/Pelvis CT 03/04/17 07:00 IMPRESSION: Pleural-based masses throughout the lung bases bilaterally. 1.5 x 1 cm soft tissue nodule ventral to the transverse colon no abnormal but nonspecific 2.6 x 2.3 cm right adrenal nodule Fluoroscopy 03/07/17 00:00 IMPRESSION: Intra procedural imaging and fluoro Chest X-Ray 03/09/17 00:00 IMPRESSION: No pneumothorax post biopsy. Mass lesions noted in the right infrahilar region and left costophrenic angle. Right pleural effusion. Guidance Needle Placement CT 03/09/17 00:00 IMPRESSION: CT-guided right the lower lobe mass/consolidation biopsy. Pathology pending. Lung Biopsy CT 03/09/17 14:08 IMPRESSION: CT-guided right the lower lobe mass/consolidation biopsy. Pathology pending. Assessment & Plan - Diagnosis (1) Sepsis Qualifiers: Qualified Code(s): A41.9 - Sepsis, unspecified organism Is this a current diagnosis for this admission?: YesPlan: The patient is growing Escherichia coli from a urine infection. We'll continue with the ertapenem for continued coverage for possible pulmonary sources. (2) UTI (urinary tract infection) Qualifiers: Qualified Code(s): N30.00 - Acute cystitis without hematuria Is this a current diagnosis for this admission?: YesPlan: Patient is growing Escherichia coli. She currently is on ertapenem. She is more confused today. This could be secondary to infection however we'll get a head CT to make certain she has not had any type of acute intracranial event. (3) Acute renal failure Qualifiers: Qualified Code(s): N17.9 - Acute kidney failure, unspecified Is this a current diagnosis for this admission?: YesPlan: Patient's creatinine has worsened and we will get a renal ultrasound today. Her I&O show her to taking more in than out. (4) Lung mass Is this a current diagnosis for this admission?: YesPlan: Lung biopsy pathology shows necrotic tissue. Have discussed with oncology about possible VATS procedure (5) Anemia Is this a current diagnosis for this admission?: YesPlan: Stable. (6) Asthma Is this a current diagnosis for this admission?: YesPlan: Continue with nebulizers as needed. Will add on IV Solu-Medrol given that she is wheezing currently. (7) Diabetes mellitus type 2 in obese Is this a current diagnosis for this admission?: YesPlan: Continue with sliding scale insulin. (8) Fibromyalgia Is this a current diagnosis for this admission?: Yes (9) Hyperlipidemia Qualifiers: Qualified Code(s): E78.5 - Hyperlipidemia, unspecified Is this a current diagnosis for this admission?: Yes (10) Hypertension, essential Is this a current diagnosis for this admission?: YesPlan: Blood pressure is under good control. (11) Hypomagnesemia Is this a current diagnosis for this admission?: YesPlan: Resolved. (12) Hypothyroidism (acquired) Is this a current diagnosis for this admission?: YesPlan: Continue with Synthroid. (13) Rheumatoid arthritis Qualifiers: Qualified Code(s): M06.9 - Rheumatoid arthritis, unspecified Is this a current diagnosis for this admission?: Yes - Time Time Spent with patient: 25-34 minutes - Inpatient Certification Medical Necessity: Need For IV Fluids, Need for IV Antibiotics - Plan Summary Plan Summary: We'll get a head CT today to evaluate confusion and renal ultrasound. If those are unremarkable will see about transferring out for a VATS procedure.
[2017-03-11] MEDS: METHYLPREDNISOLONE INJ 40 MG/1 ML SDV IV SCH ×2 (10:43→17:48)
[2017-03-11] MEDS: LEVOTHYROXINE SODIUM 0.025 MG TABLET PO SCH (11:42)
[2017-03-11] MEDS: ERTAPENEM SODIUM 0.5 GM in NORMAL SALINE 50 ML IV SCH (11:42)
[2017-03-11 12:24] LABS: ARTERIAL BLOOD BASE EXCESS -10.8 mmol/L; ARTERIAL BLOOD O2 SATURATION 86.7 % (94-98)
[2017-03-11] MEDS ORDERED: FUROSEMIDE INJ/PF 20 MG/2 ML SDV IV PRN (13:16)
[2017-03-11 14:36] LABS: PARTIAL THROMBOPLASTIN TIME 36.7 SEC (23.5-35.8); PROTHROMBIN TIME 14.7 SEC (11.4-15.4)
[2017-03-11] MEDS ORDERED: NORMAL SALINE 10 ML SDV (AFTER EACH USE) IV PRN (15:24)
[2017-03-11] MEDS: ALBUMIN HUMAN 50 ML IV SCH ×2 (15:28→16:30)
--- NOTE | 2017-03-11 17:29 | PDOC TRANSFER SUMMARY ---
General Admission Date/PCP: 03/02/17 19:09 XIMENA ALONZO MD Transfer Date: 03/11/17 Accepting Facility: [facility] Accepting Physician: Dr. Lucas Casarez Resuscitation Status: Full Code - Transfer Diagnosis (1) Sepsis Is this a current diagnosis for this admission?: YesDiagnosis Summary: Secondary to a urinary tract infection. Urine culture has grown out Escherichia coli. (2) UTI (urinary tract infection) Is this a current diagnosis for this admission?: YesDiagnosis Summary: Secondary to Escherichia coli. (3) Acute renal failure Is this a current diagnosis for this admission?: YesDiagnosis Summary: Patient presented with a creatinine of 1.9. The creatinine has increased to 2.6. (4) Lung mass Is this a current diagnosis for this admission?: YesDiagnosis Summary: Patient has had a bronchoscopy with nondiagnostic biopsies. Patient had a CT- guided biopsy also nondiagnostic. (5) Anemia Is this a current diagnosis for this admission?: Yes (6) Asthma Is this a current diagnosis for this admission?: Yes (7) Diabetes mellitus type 2 in obese Is this a current diagnosis for this admission?: Yes (8) Fibromyalgia Is this a current diagnosis for this admission?: Yes (9) Hyperlipidemia Is this a current diagnosis for this admission?: Yes (10) Hypertension, essential Is this a current diagnosis for this admission?: Yes (11) Hypomagnesemia Is this a current diagnosis for this admission?: Yes (12) Hypothyroidism (acquired) Is this a current diagnosis for this admission?: Yes (13) Rheumatoid arthritis Is this a current diagnosis for this admission?: Yes - Transfer Medications Home Medications: Alendronate Sodium [Fosamax 70 mg Tablet] 70 mg PO WE 03/02/17 Amlodipine Besylate [Norvasc 10 mg Tablet] 10 mg PO QHS 03/02/17 Aspirin [Ecotrin 81 mg EC Tablet] 81 mg PO QHS 03/02/17 Atenolol [Tenormin 50 mg Tablet] 50 mg PO BID@0800,1200 03/02/17 Atorvastatin Calcium [Lipitor 10 mg Tablet] 10 mg PO QHS 03/02/17 Calcium Carbonate/Vitamin D3 [Calcium 600-Vit D3 800 Tablet] 2 tab PO DAILY Cholecalciferol (Vitamin D3) [Vitamin D3 5000 unit Capsule] 10,000 units PO DAILY 03/02/17 Fexofenadine HCl [Shwetha] 180 mg PO QHS 03/02/17 Glucosa Pineda 2Kcl/Chondroitin Pineda [Glucosamine Chondroitin Caplet] 1 tab PO BID Hydrochlorothiazide 25 mg PO QAM 03/02/17 Levothyroxine Sodium [Synthroid 0.025 mg Tablet] 25 mcg PO ACLUNCH 03/02/17 Metformin HCl [Glucophage] 500 mg PO ACLUNCH 03/02/17 Metformin HCl [Glucophage] 850 mg PO BIDACBS 03/02/17 Montelukast Sodium [Singulair 10 mg Tablet] 10 mg PO QHS 03/02/17 Pregabalin [Lyrica 50 mg Capsule] 50 mg PO Q8 03/02/17 Tramadol HCl [Ultram 50 mg Tablet] 100 mg PO Q8 03/02/17 Transfer Medications: Current Medications Acetaminophen (Tylenol 325 Mg Tablet) 650 mg PO Q4HP PRN PRN Reason: fever Stop: 04/01/17 17:45 Last Admin: 03/08/17 23:55 Dose: 650 mg Alendronate Sodium (Fosamax "Weekly" 35 Mg Tablet) 70 mg PO We@0700 [facility] Stop: 04/08/17 06:59 Last Admin: 03/09/17 11:32 Dose: 70 mg Aspirin (Ecotrin 81 Mg Ec Tablet) 81 mg PO QHS [facility] Stop: 04/01/17 21:59 Last Admin: 03/10/17 22:39 Dose: Not Given Atenolol (Tenormin 50 Mg Tablet) 50 mg PO Q12 [facility] Stop: 04/05/17 09:59 Last Admin: 03/11/17 09:22 Dose: Not Given Atorvastatin Calcium (Lipitor 10 Mg Tablet) 10 mg PO QHS [facility] Stop: 04/02/17 21:59 Last Admin: 03/10/17 22:39 Dose: Not Given Benzonatate (Tessalon Perles 100 Mg Capsule) 100 mg PO Q8HP PRN PRN Reason: FOR COUGH Stop: 04/04/17 14:38 Last Admin: 03/09/17 22:05 Dose: 100 mg Calcium Carbonate (Os-Thuan 250 Mg With Vitamin D 125 Units) 2 tab PO BID [facility] Stop: 04/03/17 09:59 Last Admin: 03/11/17 09:22 Dose: Not Given Cholecalciferol (Vitamin D3 1000 Unit Tablet) 10,000 unit PO DAILY [facility] Stop: 04/03/17 09:59 Last Admin: 03/11/17 09:22 Dose: Not Given Dextrose (Dextrose Inj 50% Syringe (25 Gm/50 Ml)) 12.5 gm IV PRN PRN; Protocol PRN Reason: FOR BG 50-69 IN ALERT PATIENT Stop: 04/01/17 17:56 Dextrose (Dextrose Inj 50% Syringe (25 Gm/50 Ml)) 25 gm IV PRN PRN PRN Reason: Protocol Stop: 04/01/17 17:56 Docusate Sodium (Colace 100 Mg Capsule) 100 mg PO BID [facility] Stop: 04/01/17 17:59 Last Admin: 03/11/17 09:22 Dose: Not Given Enoxaparin Sodium (Lovenox Inj 30 Mg/0.3 Ml Disp.Syrin) 30 mg SUBCUT QAM [facility] Stop: 04/02/17 07:59 Last Admin: 03/11/17 07:46 Dose: 30 mg Furosemide (Lasix Inj/Pf 20 Mg/2 Ml Sdv) 20 mg IV .X1 PRN PRN Reason: GIVE AFTER ALBUMIN Stop: 03/11/17 23:59 Glucagon (Glucagen Inj 1 Mg Vial) 1 mg IM PRN PRN; Protocol PRN Reason: Evaluate for BG < 70 Stop: 04/01/17 17:56 Glucose (Glutose 40% Gel 15 Gm Tube) 15 gm PO PRN PRN; Protocol PRN Reason: FOR BG 50-69 IN ALERT PATIENT Stop: 04/01/17 17:56 Glucose (Glutose 40% Gel 15 Gm Tube) 30 gm PO PRN PRN; Protocol PRN Reason: FOR BG < 50 IN ALERT PATIENT Stop: 04/01/17 17:56 Heparin Sodium (Porcine) (Heparin Flush 10 Unit/Ml 5 Ml Disp.Syrg) 30 unit IV Q12 [facility] Stop: 04/10/17 21:59 Heparin Sodium (Porcine) (Heparin Flush 10 Unit/Ml 5 Ml Disp.Syrg) 30 unit IV .AFTER EACH USE PRN Stop: 04/10/17 15:23 Ertapenem 0.5 gm/ Sodium (Chloride) 50 mls @ 100 mls/hr IV NOON [facility] Stop: 03/14/17 11:59 Last Admin: 03/11/17 11:42 Dose: 0.5 gm Sodium Chloride (Nacl 0.9% 1000 Ml Iv Soln) 1,000 mls @ 175 mls/hr IV CONTINUOUS PRN PRN Reason: THIS MED IS NOT "PRN" Stop: 04/07/17 15:03 Last Admin: 03/10/17 10:22 Dose: 1,000 ml Insulin Human Regular (Humulin R (Pyxis) Insulin 100 Unit/Ml 3ml) 0 - 12 unit SUBCUT ACHSP PRN PRN Reason: Protocol Stop: 04/01/17 17:56 Lansoprazole (Prevacid 30 Mg Odt Tablet) 30 mg PO Q6AM [facility] Stop: 04/02/17 05:59 Last Admin: 03/11/17 05:21 Dose: Not Given Levalbuterol HCl (Xopenex Neb 1.25 Mg/3 Ml Ampul) 1.25 mg NEB RTQ4HP PRN Stop: 04/05/17 08:59 Last Admin: 03/09/17 01:15 Dose: 1.25 mg Levothyroxine Sodium (Synthroid 0.025 Mg Tablet) 0.025 mg PO ACLUNCH [facility] Stop: 04/02/17 10:59 Last Admin: 03/11/17 11:42 Dose: 0.025 mg Loratadine (Claritin 10 Mg Tablet) 10 mg PO QHS [facility] Stop: 04/01/17 21:59 Last Admin: 03/10/17 22:39 Dose: Not Given Methylprednisolone Sodium Succinate (Solu-Medrol Inj/Pf 40 Mg/1 Ml Sdv) 40 mg IV Q8A [facility] Stop: 04/10/17 09:59 Last Admin: 03/11/17 10:43 Dose: 40 mg Montelukast Sodium (Singulair 10 Mg Tablet) 10 mg PO QHS [facility] Stop: 04/01/17 21:59 Last Admin: 03/10/17 22:39 Dose: Not Given Ondansetron HCl (Zofran Inj/Pf 4 Mg/2 Ml Sdv) 4 mg IV Q4HP PRN PRN Reason: FOR NAUSEA/VOMITING Stop: 04/01/17 17:52 Patient Own Medication (Glucosa Pineda 2kcl/Chondroitin Pineda [Glucosamine Chondroitin Caplet]) 1 tab PO .BID [facility] Stop: 04/03/17 09:59 Potassium Chloride (Klor-Con 10 Meq Tablet.Sa) 20 meq PO Q12 [facility] Stop: 04/08/17 21:59 Last Admin: 03/11/17 09:22 Dose: Not Given Fluticasone/Salmeterol (Advair 250-50 Diskus 14 Dose/Diskus) 1 inh IH Q12 [facility] Stop: 04/05/17 09:59 Last Admin: 03/11/17 09:22 Dose: Not Given Sodium Chloride (Nacl 0.9% Inj/Pf 10 Ml Sdv) 10 ml IV Q12 [facility] Stop: 04/10/17 21:59 Sodium Chloride (Nacl 0.9% Inj/Pf 10 Ml Sdv) 10 ml IV .AFTER EACH USE PRN Stop: 04/10/17 15:23 - Allergies Allergies/Adverse Reactions: SHAUN Inhibitors [Shaun Inhibitors] Allergy (Verified 08/26/15 08:54) ascorbate calcium [From Vitamin C] Allergy (Verified 08/26/15 08:54) Swelling of hands and/or feet ascorbate sodium [From Vitamin C] Allergy (Verified 08/26/15 08:54) Swelling of hands and/or feet ascorbic acid [From Vitamin C] Allergy (Verified 08/26/15 08:54) Swelling of hands and/or feet buffers [From Vitamin C] Allergy (Verified 08/26/15 08:54) Swelling of hands and/or feet codeine [Codeine] Allergy (Verified 08/26/15 08:54) Hives multivitamin with minerals [From Vitamin C] Allergy (Verified 08/26/15 08:54) Swelling of hands and/or feet oxycodone [Oxycodone] Allergy (Verified 08/26/15 08:54) Hives Penicillins Allergy (Verified 08/26/15 08:54) Hives Tetanus Vaccines and Toxoid [Tetanus] Allergy (Verified 08/26/15 08:54) itching reddness - Diet/Activity Discharge Diet: Diabetic Discharge Activity: Activity As Tolerated Hospital Course Hospital Course: 76-year-old female who presented with fever and was found to have sepsis. Patient was found to have urinary tract infection as the cause for her sepsis. The patient was treated ertapenem initially. The patient grew out Escherichia coli that was pansensitive. She was continued on ertapenem because of her pulmonary nodules that were found and her continued elevated white count. The patient was found to have multiple lung nodules. This was worked up with a bronchoscopy which was nondiagnostic on pathology. She then went a CT-guided biopsy which also was nondiagnostic with necrotic tissue present. Because of this it was felt that she needed to have a possible VATS procedure done and Dr. Lucas Casarez at [facility] graciously agreed to accept the patient in transfer. The patient also has had problems with some asthma and she as been treated with IV steroids. She also has had some worsening in her renal function in spite of increased IV fluids. Her creatinine was 1.9 she presented and was 2.6 the day of discharge. She was making adequate urine. Patient last 24 hours has developed some worsening in her mental status and a head CT was done which showed no acute event. The cause of her encephalopathy is not clear. Patient does have a history of rheumatoid arthritis and the possibility this representing rheumatoid lung disease is considered. The patient's other medical problems were stable during this hospitalization. Physical Exam Vital Signs: Temp Pulse Resp BP Pulse Ox 97.7 F 72 18 146/53 H 92 03/11/17 12:00 03/11/17 14:00 03/11/17 12:00 03/11/17 12:00 03/11/17 12:00 Intake & Output 03/10/17 03/11/17 03/12/17 06:59 06:59 06:59 Intake Total 2502 2400 Output Total 1100 400 Balance 1402 2000 Weight 82.3 kg 83.4 kg General appearance: PRESENT: no acute distress Eye exam: PRESENT: conjunctiva pink. ABSENT: scleral icterus Ear exam: PRESENT: normal external ear exam Mouth exam: PRESENT: moist, tongue midline Neck exam: ABSENT: JVD Respiratory exam: PRESENT: clear to auscultation ponce. ABSENT: rales, rhonchi, wheezes Cardiovascular exam: PRESENT: RRR. ABSENT: diastolic murmur, rubs, systolic murmur Vascular exam: PRESENT: normal capillary refill GI/Abdominal exam: PRESENT: normal bowel sounds, soft. ABSENT: distended, guarding, mass, organolmegaly, rebound, tenderness Extremities exam: ABSENT: calf tenderness, clubbing, pedal edema Neurological exam: PRESENT: alert, awake, oriented to person, oriented to place , CN II-XII grossly intact. ABSENT: oriented to time, oriented to situation, motor sensory deficit Psychiatric exam: PRESENT: anxious Skin exam: PRESENT: dry, intact, warm. ABSENT: cyanosis, rash Results Laboratory Results: 03/11/17 05:56 03/11/17 05:56 03/10/17 03/10/17 03/10/17 21:32 23:47 23:47 WBC 18.9 H RBC 3.44 L Hgb 9.7 L Hct 31.6 L MCV 92 MCH 28.0 MCHC 30.6 L RDW 16.0 H Plt Count 361 Seg Neutrophils % Not Reportable Lymphocytes % Not Reportable Monocytes % Not Reportable Eosinophils % Not Reportable Basophils % Not Reportable Absolute Neutrophils Not Reportable Absolute Lymphocytes Not Reportable Absolute Monocytes Not Reportable Absolute Eosinophils Not Reportable Absolute Basophils Not Reportable Carbonic Acid 1.51 H HCO3/H2CO3 Ratio 12:1 ABG pH 7.19 L* ABG pCO2 50.1 H ABG pO2 99.8 ABG HCO3 18.7 L ABG O2 Saturation 96.0 ABG Base Excess -9.5 FiO2 32% Sodium 148.0 H Potassium 3.6 Chloride 116 H Carbon Dioxide 20 L Anion Gap 12 BUN 36 H Creatinine 2.58 H Est GFR ( Amer) 22 L Est GFR (Non-Af Amer) 18 L Glucose 125 H Calcium 9.5 Total Bilirubin 0.3 AST 13 L ALT 21 Alkaline Phosphatase 64 Total Protein 5.2 L Albumin 2.3 L 03/11/17 03/11/17 03/11/17 05:56 05:56 12:00 WBC 22.3 H RBC 3.36 L Hgb 9.3 L Hct 30.7 L MCV 91 MCH 27.8 MCHC 30.5 L RDW 15.9 H Plt Count 332 Seg Neutrophils % Not Reportable Lymphocytes % Not Reportable Monocytes % Not Reportable Eosinophils % Not Reportable Basophils % Not Reportable Absolute Neutrophils Not Reportable Absolute Lymphocytes Not Reportable Absolute Monocytes Not Reportable Absolute Eosinophils Not Reportable Absolute Basophils Not Reportable Carbonic Acid 1.26 HCO3/H2CO3 Ratio 13:1 ABG pH 7.21 L ABG pCO2 41.9 ABG pO2 61.5 L ABG HCO3 16.5 L ABG O2 Saturation 86.7 L ABG Base Excess -10.8 FiO2 4L Sodium 148.1 H Potassium 3.5 L Chloride 117 H Carbon Dioxide 20 L Anion Gap 11 BUN 37 H Creatinine 2.65 H Est GFR ( Amer) 21 L Est GFR (Non-Af Amer) 17 L Glucose 130 H Calcium 9.7 Total Bilirubin AST ALT Alkaline Phosphatase Total Protein Albumin 03/07/17 14:09 Bronchial Washings AFB Smear Concentration - Final 03/07/17 14:09 Bronchial Washings Acid Fast Bacilli Smear - Final 03/10/17 03/10/17 23:47 23:47 Creatine Kinase < 20 L CK-MB (CK-2) 0.41 Troponin I < 0.012 Impressions: Shoulder X-Ray 03/02/17 12:06 IMPRESSION: 1. Old posttraumatic changes involving the proximal right humerus with severe degenerative changes involving the AC joint and the glenohumeral joint. 2. Abnormal density involving the right hilum extending into the right lung base worrisome for malignancy. Chest CT is recommended. Chest CT 03/02/17 15:46 IMPRESSION: Multiple large mass lesions are seen through the lung zuñiga, hilar and mediastinal regions. Findings concerning for malignancy. Scattered sclerotic changes are seen of multiple ribs. Abdomen/Pelvis CT 03/04/17 07:00 IMPRESSION: Pleural-based masses throughout the lung bases bilaterally. 1.5 x 1 cm soft tissue nodule ventral to the transverse colon no abnormal but nonspecific 2.6 x 2.3 cm right adrenal nodule Fluoroscopy 03/07/17 00:00 IMPRESSION: Intra procedural imaging and fluoro Chest X-Ray 03/09/17 00:00 IMPRESSION: No pneumothorax post biopsy. Mass lesions noted in the right infrahilar region and left costophrenic angle. Right pleural effusion. Guidance Needle Placement CT 03/09/17 00:00 IMPRESSION: CT-guided right the lower lobe mass/consolidation biopsy. Pathology pending. Lung Biopsy CT 03/09/17 14:08 IMPRESSION: CT-guided right the lower lobe mass/consolidation biopsy. Pathology pending. Guidance Fluoroscopy 03/11/17 00:00 IMPRESSION: SUCCESSFUL PLACEMENT OF A 5 FR DUAL LUMEN 41 CM PICC IN THE left basilic VEIN. Head CT 03/11/17 00:00 IMPRESSION: MILD CHRONIC CHANGES OF ATROPHY AND MICROVASCULAR ISCHEMIA. NO ACUTE PROCESS. Interventional Vascular Procedure 03/11/17 00:00 IMPRESSION: SUCCESSFUL PLACEMENT OF A 5 FR DUAL LUMEN 41 CM PICC IN THE left basilic VEIN. PICC Line Insertion 03/11/17 00:00 IMPRESSION: SUCCESSFUL PLACEMENT OF A 5 FR DUAL LUMEN 41 CM PICC IN THE left basilic VEIN. Plan Discharge Plan: Patient is transferred to [facility], Dr. Lucas Casarez accepting physician. Time Spent: Greater than 30 Minutes
[2017-03-11 20:58] VITALS: BP 134/59
[2017-03-11] MEDS ORDERED: NORMAL SALINE 10 ML SDV (SCHEDULED) IV SCH (22:00)
--- NOTE | 2017-03-13 16:12 | Operative Report ---
Operative Report DATE OF SURGERY: 03/07/17 Operative Report: Patient was kept n.p.o. 14 hours prior to procedure taken to the preop area where IV access was established consents were reviewed. Patient was then taken to the bronchoscopy suite where under anesthesia she was intubated with a #8 ET tube. Then using a T size [place] bronchoscope her tracheobronchial tree was explored. There were no abnormalities of the distal trachea and no splaying of the ladarius noted no abnormalities of the left mainstem bronchus left upper lobe lingula and left lower lobe were noted. The right mainstem bronchus that showed not show any obstruction or submucosal edema and there was submucosal edema diffusely in the right upper lobe right bronchus intermedius right middle lobe and right lower lobe. Lavage was taken of the right upper lobe of the lung the right middle lobe of the lung and the right lower lobe of the lung. Transbronchial biopsies were taken of the right upper lobe of the lung right middle lobe of the lung and the right lower lobe of the lung. Sotelo needle biopsies were taken from the right upper lobe of the lung right bronchus intermedius right middle lobe along the right lower lobe of the lung. Patient tolerated these procedures well postprocedure SaO2 was 98%. Postprocedure chest x-ray is pending at this time there was significant swelling in the right upper lobe and right middle lobes 50-60% occlusion of the subsegmental bronchi patient was started on antibiotics for possible postobstructive pneumonitis PREOPERATIVE DIAGNOSIS: R Lung mass POSTOPERATIVE DIAGNOSIS: same OPERATION: FOB W/BAL and tbb and Sotelo needle biopsy SURGEON: BILLIE HOLLOWAY ANESTHESIA: GA TISSUE REMOVED OR ALTERED: RUL,RML,RLL lavage. RUL,RMLand RLL transbronchial biopsies. RUL,RLL,Bronchus intermedius Sotelo needle biopsies COMPLICATIONS: none ESTIMATED BLOOD LOSS: 3 cc INTRAOPERATIVE FINDINGS: Diffuse right sided submucosal edema the right upper lobe of the lung right middle lobe along the right lower lobe of the lung and the right bronchus intermedius
== END 2017-03-11 20:30 | disposition short-term general hospital (02) | DRG 854 ==
LOC: ER 11:27 → EH 19:09 → 4N 21:20
PROC: 3E0F73Z Introduction of Anti-inflammatory into Respiratory Tract, Via Natural or Artificial Opening (ICD-10-PCS; 2017-03-06)
PROC: 30233N1 Transfusion of Nonautologous Red Blood Cells into Peripheral Vein, Percutaneous Approach (ICD-10-PCS; 2017-03-06)
PROC: 0B948ZX Drainage of Right Upper Lobe Bronchus, Via Natural or Artificial Opening Endoscopic, Diagnostic (ICD-10-PCS; 2017-03-07)
PROC: 0B968ZX Drainage of Right Lower Lobe Bronchus, Via Natural or Artificial Opening Endoscopic, Diagnostic (ICD-10-PCS; 2017-03-07)
PROC: 0B9C8ZX Drainage of Right Upper Lung Lobe, Via Natural or Artificial Opening Endoscopic, Diagnostic (ICD-10-PCS; principal; 2017-03-07 13:30)
PROC: 0B9F8ZX Drainage of Right Lower Lung Lobe, Via Natural or Artificial Opening Endoscopic, Diagnostic (ICD-10-PCS; 2017-03-07 13:30)
PROC: 0B9D8ZX Drainage of Right Middle Lung Lobe, Via Natural or Artificial Opening Endoscopic, Diagnostic (ICD-10-PCS; 2017-03-07 13:30)
PROC: 0BBK3ZX Excision of Right Lung, Percutaneous Approach, Diagnostic (ICD-10-PCS; 2017-03-09)
PROC: 02HV33Z Insertion of Infusion Device into Superior Vena Cava, Percutaneous Approach (ICD-10-PCS; 2017-03-11)
PROC: B548ZZA Ultrasonography of Superior Vena Cava, Guidance (ICD-10-PCS; 2017-03-11)
PROC: B518ZZA Fluoroscopy of Superior Vena Cava, Guidance (ICD-10-PCS; 2017-03-11)
PROC: 5A09357 Assistance with Respiratory Ventilation, Less than 24 Consecutive Hours, Continuous Positive Airway Pressure (ICD-10-PCS; 2017-03-11)
DX: A41.9 Sepsis, unspecified organism (principal); N30.00 Acute cystitis without hematuria; N17.9 Acute kidney failure, unspecified; B96.20 Unspecified Escherichia coli [E. coli] as the cause of diseases classified elsewhere; D63.8 Anemia in other chronic diseases classified elsewhere; J45.909 Unspecified asthma, uncomplicated; E11.9 Type 2 diabetes mellitus without complications; E66.9 Obesity, unspecified; Z68.35 Body mass index [BMI] 35.0-35.9, adult; M79.7 Fibromyalgia; E78.5 Hyperlipidemia, unspecified; I10 Essential (primary) hypertension; E83.42 Hypomagnesemia; E03.9 Hypothyroidism, unspecified; M06.9 Rheumatoid arthritis, unspecified; R91.8 Other nonspecific abnormal finding of lung field; I95.1 Orthostatic hypotension; D50.9 Iron deficiency anemia, unspecified; Z79.899 Other long term (current) drug therapy; Z88.6 Allergy status to analgesic agent; Z88.0 Allergy status to penicillin; Z88.7 Allergy status to serum and vaccine; Z88.8 Allergy status to other drugs, medicaments and biological substances; Z91.048 Other nonmedicinal substance allergy status; Z98.49 Cataract extraction status, unspecified eye; Z82.49 Family history of ischemic heart disease and other diseases of the circulatory system; Z80.49 Family history of malignant neoplasm of other genital organs; Z80.8 Family history of malignant neoplasm of other organs or systems; Z83.3 Family history of diabetes mellitus
CPT/HCPCS: 00520; 31624; 31628; 31629; 32405; 36415; 36430; 36569; 36600; 70450; 71010; 71020; 71250; 74176; 76770; 76937; 77001; 77012; 80048; 80053; 80076; 81001; 82272; 82378; 82550; 82553; 82803; 82962; 83690; 83735; 84100; 84439; 84443; 84481; 84484; 85025; 85027; 85610; 85730; 86301; 86850; 86900; 86901; 86920; 87015; 87040; 87070; 87086; 87088; 87101; 87116; 87186; 87205; 87206; 88173; 88184; 88185; 88305; 89050; 93005; 93010; 94640; 94660; 96365; 96366; 99285; G8978-GP; G8979-GP; J0171; J0330; J1100; J1200; J1335; J1630; J1642; J1650; J1940; J1956; J2250; J2405; J2704; J2920; J3010; J3490; J7030; P9016; P9047; Q0138